=== PATIENT | female | born 1970 | race Caucasian/White ===

== ENCOUNTER 2020-05-09 14:24 | Outpatient (REF) | payer BC, SELFPAY ==
--- NOTE | 2020-05-09 14:28 | MM_ITS ---
EXAMINATION: MM DIAGNOSTIC DIGITAL BREAST TOMOSYNTHESIS, BILATERAL US DIAGNOSTIC ULTRASOUND BREAST, LEFT CLINICAL INFORMATION: 49-year-old status post reduction mammoplasty [id number]. Chronic inflammatory changes in the anterior left breast for months, painful. Family history breast cancer in maternal grandmother and aunt, and, paternal grandmother and aunt. The lifetime risk of breast cancer based on the Tyrer-Cuzick Model is 20%. COMPARISON: Mammography: 06/27/2019, 04/19/2018, 04/14/2017 TECHNIQUE: Digital breast tomosynthesis is performed in both the craniocaudal and mediolateral oblique views along with computer-aided detection (CAD). Synthesized 2D images are generated from the tomosynthesis. Ultrasound left breast is targeted to the area of clinical concern retroareolar and periareolar breast. Grayscale imaging and color Doppler are performed without and with harmonics. FINDINGS: There are scattered areas of fibroglandular density (ACR BI-RADS breast composition Category b). There is bilateral anterior breasts scarring consistent with the reduction mammoplasty again seen. The right breast shows no interval mass or architectural abnormality. Neither breast shows abnormal calcifications. Low right axillary tail node is stable. The left breast has mild smooth skin thickening and mild increased parenchymal attenuation retroareolar breast corresponding to the area of mastodynia. Ultrasound left breast demonstrates smooth skin thickening left areola in the area of pain. There is a retroareolar deep dermal fluid collection measuring 0.8 x 1.3 x 1.3 cm with surrounding hyperemia on color Doppler. No solid mass or focal duct ectasia. Results are discussed with the patient at time of visit. Results are called and discussed with Dr. Briones while patient in office. Management plan is for patient to begin antibiotics this evening with follow-up ultrasound next week with possible ultrasound-guided aspiration as needed. MM/MM diagnostic mammo BI IMPRESSION: 1. Left: Inflammatory changes retroareolar left breast with small deep dermal fluid collection 0.8 x 1.3 x 1.3 cm. 2. No mammographic evidence of malignancy. ASSESSMENT: BI-RADS 3: Probably Benign RECOMMENDATION: 1. Patient should begin antibiotic coverage today. 2. Follow-up targeted left breast ultrasound next week (scheduled). This patient's information was entered into a reminder system with a target due date for their next mammogram.
== END 2020-05-09 14:25 | disposition home or self-care (01) ==
LOC: HO.MAMMO 14:24
PROVIDERS: Visit Provider Nurse Practitioner Family
DX: N63.20 Unspecified lump in the left breast, unspecified quadrant (principal); N64.52 Nipple discharge
CPT/HCPCS: 76641; 77066

== ENCOUNTER 2020-05-16 08:07 | Outpatient (REF) | payer BC, MEDICAID, SELFPAY ==
--- NOTE | 2020-05-16 08:15 | US_ITS ---
EXAMINATION: US DIAGNOSTIC ULTRASOUND BREAST, LEFT US ULTRASOUND-GUIDED CYST ASPIRATION BREAST, LEFT CLINICAL INFORMATION: Inflammatory changes retroareolar left breast with deep dermal fluid collection 8 x 13 x 13 mm. One-week follow-up on antibiotics. COMPARISON: Mammography and diagnostic left breast ultrasound 05/09/2020. US BREAST, LEFT TECHNIQUE: Ultrasound left breast is targeted to the retroareolar and periareolar region. Grayscale imaging and color Doppler are performed. FINDINGS: There are increased inflammatory changes with increased granulation tissue and fluid. The area of involvement is irregular in shape and maximal overall dimensions are approximately 3.6 x 2.4 x 3.8 cm compared with prior measurements 1.3 x 0.8 x 1.3 cm. Clinically, there is circumferential erythema anterior left breast. US ASPIRATION BREAST, LEFT FINDINGS: Proper informed consent is obtained from the patient after discussion of the procedure, potential risks and complications, and alternatives. Patient was given an opportunity for questions. The patient appeared to understand. The patient consented to the procedure and signed the consent form. LOCATION: Retroareolar GUIDANCE: Ultrasound-guided; aseptic technique. LESION: Retroareolar abscess/granulation tissue. APPROACH: Lateral medial ANESTHESIA: 4 mL 1% lidocaine NEEDLE: 18-gauge straight. ASPIRATION: 7 mL purulent material was aspirated and sent to lab for Gram stain, culture, sensitivity. Remaining hypoechoic area which did not aspirate may represent granulation tissue. The overall size post aspiration is approximately 3.2 x 1.9 x 2.8 cm. Results discussed with patient at time of imaging. Results discussed with Dr. Cecile Briones immediately following the procedure. Surgical consult [facility] for [facility] for additional management. US/US breast cyst asp LT IMPRESSION: 1. Subareolar abscess and granulation tissue increased since prior imaging 05/09/2020. 2. Status post ultrasound-guided aspiration purulent material (7 mL). Microbiology pending. ASSESSMENT: BI-RADS 3: Probably Benign RECOMMENDATION: 1. Surgical consult (scheduled). 2. Continue with antibiotics coverage as directed. 3. Microbiology pending from today's aspiration.
== END 2020-05-16 08:08 | disposition home or self-care (01) ==
LOC: HO.MAMMO 08:07
PROVIDERS: PCP Internal Medicine; Visit Provider Internal Medicine
DX: N63.20 Unspecified lump in the left breast, unspecified quadrant (principal); N61.1 Abscess of the breast and nipple
CPT/HCPCS: 19000; 76642; 87071; 87205

== ENCOUNTER 2020-05-19 10:20 | Day surgery (SDC) | payer BC, MEDICAID, SELFPAY ==
[2020-05-19 11:03] VITALS: BP 139/96; PULSE 97; RESP 18; TEMP 36.4; O2SAT 97; BMI 36.6
[2020-05-19] MEDS: Lidocaine 4 % Cream KIT 1 APPL TOPICAL (11:09)
[2020-05-19] MEDS: Lactated Ringers 1,000 ML 100 ML IVCONT (11:42)
[2020-05-19] MEDS: ceFAZolin Sodium/Dextrose,Iso 2 GM/50 ML PIGGYBACK IV (11:42)
--- NOTE | 2020-05-19 11:56 | MHC.SHP ---
Pre-Procedural Eval Section A The patient is an INPATIENT: No Changes since office visit: Yes Patient answered all questions; No Cold of Flu in the past 2 weeks, No New Medical Problems and No Changes in Medication The History & Physical has been completed within 30 days and I have reviewed it.: Yes Section B Chief Complaint: Left Breast Abscess Allergies: Allergies Allergy/AdvReac Type Severity Reaction Status Date / Time lactose [LACTOSE] Allergy Unknown GI UPSET Verified 05/08/20 16:18 latex Allergy Unknown unknown Uncoded 03/13/20 10:53 Plan Diagnosis/Plan: Unchanged I have reviewed the history and physical and performed a pertinent physical examination on my patient. No changes have occurred unless specified.
--- NOTE | 2020-05-19 12:43 | PM.OP ---
Brief Operative Note Date of Service: 05/19/20 Pre-op diagnosis: Left breast abscess Post-op diagnosis: same Procedure: Incision and drainage of left breast abscess Implants: none Surgeon: Richard Oleary MD Anesthesia: [facility] Medical Receptionist: Chhaya Barron Estimated blood loss (mL): 5 Pathology: other (wound culture) Condition: stable Disposition: PACU
--- NOTE | 2020-05-19 12:44 | P.OP_ITS ---
Operative Note Operative Note Date of Service: 05/19/20 Narrative: Diagnosis: Left breast abscess Postoperative diagnosis: Same Procedure incision and drainage left breast abscess Surgeon: Richard Oleary MD Equipment Application Specialist: GARRY Horan Anesthesia: General LMA Indications for procedure: 49-year-old female patient presenting with a 1 week history of pain and swelling of the left breast. Patient reports increased pain over the preceding 2-3 days and subsequently underwent ultrasound-guided aspiration. Following this procedure the patient reported increased pain but denied fever or chills. Ultrasound indicated a residual phlegmon or granulation tissue within the left breast. Of note the patient has a prior history of bilateral breast reduction surgery with no immediate postoperative complications. Operative findings: The patient was found to have a large abscess located below the nipple on the left breast with surrounding areas of inflammation. A culture of the fluid was sent for wound culture. EBL: 5 mL Complications: None Specimen: Wound culture Drain: 1/4 inch Klaudia drain (latex-free) Procedure details: Patient was brought to the OR placed in a supine position. After administering general anesthesia the patient's left breast was prepped with ChloraPrep and draped in a sterile fashion. A surgical time-out was called consent confirmed. Patient received preoperative antibiotics and Venodyne boots were in place. Local anesthesia consisting of 0.75% was placed in the 12 o'clock position of the nipple-areolar complex over her previous nipple incision. An incision was then made with a 15 blade carried out through subcutaneous tissue. Blunt dissection with a hemostat was then used to dissect below the nipple at which point a large abscess was encountered. Wound cultures were obtained at this point. Blunt dissection was used to open up this abscess cavity to the incision. The wounds were then irrigated thoroughly with saline solution and suctioned dry. A 1/4 inch Klaudia drain was then placed into the abscess cavity and brought out through the incision. This was then secured to skin using a 4-0 nylon suture. The patient tolerated the procedure well. Sponge, instrument, needle counts reported as correct. The patient was transferred to PACU in stable condition.
[2020-05-19 12:50] VITALS: BP 119/79; PULSE 96; RESP 14; TEMP 36.6; O2SAT 97
[2020-05-19 12:55] VITALS: BP 123/79; PULSE 91; RESP 20; O2SAT 95
[2020-05-19 13:00] VITALS: BP 132/88; PULSE 92; RESP 18; O2SAT 96
[2020-05-19 13:05] VITALS: BP 119/79; PULSE 90; RESP 18; O2SAT 96
[2020-05-19] MEDS: Acetaminophen 325 MG TABLET 975 MG PO (13:12)
[2020-05-19 13:20] VITALS: BP 105/78; PULSE 85; RESP 18; TEMP 36.6; O2SAT 97
--- NOTE | 2020-05-19 13:39 | HO.POSTANES ---
Post Anesthesia Evaluation Post Anesthesia Evaluation Vital Signs: Vital Signs Temp Pulse Resp BP Pulse Ox 05/19/20 13:20 97.9 F 85 18 105/78 97 05/19/20 13:05 90 18 119/79 96 05/19/20 13:00 92 18 132/88 96 05/19/20 12:55 91 20 123/79 95 05/19/20 12:50 97.9 F 96 14 119/79 97 05/19/20 11:03 97.5 F 97 18 139/96 H 97 Anesthesia: General LMA Mental Status: Awake Pain Control: Satisfactory Nausea/Vomiting: None Hydration: Adequate Anesthesia-Related Issues: No Anes. Related Issues
== END 2020-05-19 13:45 | disposition home or self-care (01) ==
PROVIDERS: PCP Internal Medicine; Visit Provider Surgery
PROC: (CPT 10060; principal; 2020-05-19 12:00)
DX: N61.1 Abscess of the breast and nipple (principal); N64.4 Mastodynia; Z98.890 Other specified postprocedural states; J45.990 Exercise induced bronchospasm; Z91.040 Latex allergy status; F31.9 Bipolar disorder, unspecified; Z85.528 Personal history of other malignant neoplasm of kidney; Z90.5 Acquired absence of kidney; Z98.51 Tubal ligation status; Z79.899 Other long term (current) drug therapy
CPT/HCPCS: 10060; 87071; 87205; J0690; J2250; J3010

== ENCOUNTER → 2020-05-27 11:35 | Outpatient (BNVA) | payer BC, SELFPAY | PROVIDERS: PCP Internal Medicine; Visit Provider Surgery ==

== ENCOUNTER 2020-06-05 07:04 | Outpatient (REF) | payer BC, SELFPAY ==
[2020-06-05 07:43] LABS: MANUAL DIFF FLAG NO
[2020-06-05 07:47] LABS: Basophils Percent Auto 0.3 % (0-2); Eosinophils Absolute Auto 0.2 X10*3/uL (0.0-0.4); Eosinophils Percent Auto 1.9 % (0-4); Hematocrit 38.8 % (37-47); Hemoglobin 12.7 g/dl (12.0-16.0); Imm Gran Abs Auto 0.02 X10*3/uL (0.00-0.03); Imm Gran Pct Auto 0.3 % (0.0-0.4); Lymphocytes Absolute Auto 1.7 X10*3/uL (1.2-4.9); Lymphocytes Percent Auto 21.8 % (20-40); Mean Corpuscular HGB Conc 32.7 g/dl (31.0-35.0); Mean Corpuscular Volume 82.4 fL (80-98); Mean Platelet Volume 9.7 fL (9.4-12.3); Monocytes Absolute Auto 0.4 X10*3/uL (0.1-1.2); Monocytes Percent Auto 5.5 % (2-11); Neutrophils Absolute Auto 5.4 X10*3/uL (2.0-8.3); Neutrophils Percent Auto 70.2 % (45-73); Platelet Count 442 X10*3/uL (160-400); Red Blood Count 4.71 X10*6/uL (4.20-5.50); Red Cell Distribution Width 12.9 % (11.0-16.0); White Blood Count 7.8 X10*3/uL (4.8-10.8)
[2020-06-05 08:16] LABS: Anion Gap 12 (12-20); Blood Urea Nitrogen 11 mg/dL (9-16); Calcium 9.3 mg/dL (8.4-10.2); Carbon Dioxide 27 mmol/L (22-29); Chloride 104 mmol/L (96-108); Cholesterol 213 mg/dL; Estimated Glomerular Filt Rate > 60; Glucose Fasting 106 mg/dL (60-99); HDL Cholesterol 45 mg/dL; LDL Cholesterol Calculated 139 mg/dl; Potassium 4.9 mmol/L (3.3-5.1); Sodium 138 mmol/L (135-145); Triglycerides 145 mg/dL
[2020-06-05 08:35] LABS: TSH reflex Free T4 1.75 uIU/mL (0.32-4.0)
[2020-06-09 15:02] LABS: Vitamin D 25-OH, D2 <4 ng/mL; Vitamin D 25-OH, D3 24 ng/mL; Vitamin D 25-OH, Total 24 ng/mL (30-100)
== END 2020-06-05 07:05 | disposition home or self-care (01) ==
LOC: HO.LAB 07:04
PROVIDERS: Visit Provider Internal Medicine
DX: R10.13 Epigastric pain (principal); E78.9 Disorder of lipoprotein metabolism, unspecified; F31.9 Bipolar disorder, unspecified; Z82.49 Family history of ischemic heart disease and other diseases of the circulatory system
CPT/HCPCS: 36415; 80048; 80061; 82306; 84443; 85025

== ENCOUNTER → 2020-06-06 09:24 | Outpatient (BNVA) | payer BC, SELFPAY | PROVIDERS: PCP Internal Medicine; Visit Provider Obstetrics & Gynecology ==

== ENCOUNTER → 2020-06-10 09:00 | Outpatient (BNVA) | payer BC, SELFPAY | PROVIDERS: PCP Internal Medicine; Visit Provider Surgery ==

== ENCOUNTER → 2020-07-08 15:16 | Outpatient (BNVA) | payer BC, SELFPAY | PROVIDERS: PCP Internal Medicine; Visit Provider Surgery ==

== ENCOUNTER 2020-07-30 10:09 | Outpatient (REF) | payer BC, SELFPAY ==
[2020-07-30 11:38] LABS: SARS COV2 PCR INHOUSE NEGATIVE (Negative)
== END 2020-07-30 10:10 | disposition home or self-care (01) ==
LOC: HO.LAB 10:09
PROVIDERS: Visit Provider Internal Medicine
DX: Z20.822 Contact with and (suspected) exposure to COVID-19 (principal)
CPT/HCPCS: C9803; U0003

== ENCOUNTER 2021-04-03 08:17 | Outpatient (REF) | payer BC, MEDICAID, SELFPAY ==
[2021-04-03 12:03] LABS: Estimated Average Glucose 114 mg/dL; Hemoglobin A1c % 5.6 %
[2021-04-03 12:26] LABS: Alanine Aminotransferase 29 U/L (0-31); Albumin Level 4.1 g/dL (3.5-5.0); Alkaline Phosphatase 76 U/L (39-117); Anion Gap 13 (12-20); Aspartate Amino Transferase 18 U/L (5-31); Bilirubin Total 0.4 mg/dL (0.0-1.0); Blood Urea Nitrogen 10 mg/dL (9-16); Calcium 9.6 mg/dL (8.4-10.2); Carbon Dioxide 26 mmol/L (22-29); Chloride 107 mmol/L (96-108); Estimated Glomerular Filt Rate > 60; Glucose Random 109 mg/dL (60-115); Potassium 4.5 mmol/L (3.3-5.1); Sodium 141 mmol/L (135-145); Total Protein 6.9 g/dL (6.5-8.0)
== END 2021-04-03 08:18 | disposition home or self-care (01) ==
LOC: HO.HMGCLDS 08:17
PROVIDERS: PCP Internal Medicine; Visit Provider Internal Medicine
DX: R73.03 Prediabetes (principal); I10 Essential (primary) hypertension
CPT/HCPCS: 36415; 80053; 83036

== ENCOUNTER → 2021-06-09 08:25 | Outpatient (BNVA) | payer BC, MEDICAID, SELFPAY | PROVIDERS: PCP Internal Medicine; Visit Provider Obstetrics & Gynecology ==

== ENCOUNTER 2021-06-09 14:40 | Outpatient (REF) | payer BC, MEDICAID, SELFPAY ==
--- NOTE | ~2021-06-09 | XR_ITS ---
EXAMINATION: XR SHOULDER, LEFT CLINICAL INFORMATION: Pain in the shoulder COMPARISON: None TECHNIQUE: Three views of the left shoulder. FINDINGS: The bones and soft tissues are normal. No fracture. Glenohumeral and acromioclavicular alignment is anatomic with normal joint space. No abnormal soft tissue calcifications. XR/XR shoulder LT min 2V IMPRESSION: Normal left shoulder.
== END 2021-06-09 14:41 | disposition home or self-care (01) ==
LOC: HO.HMGCX 14:40
PROVIDERS: PCP Internal Medicine; Visit Provider Physician Assistant
DX: M25.512 Pain in left shoulder (principal)
CPT/HCPCS: 73030

== ENCOUNTER 2021-06-24 14:22 | Outpatient (REF) | payer BC, MEDICAID, SELFPAY ==
--- NOTE | ~2021-06-24 | XR_ITS ---
EXAMINATION: XR ELBOW, LEFT CLINICAL INFORMATION: Elbow pain. COMPARISON: None TECHNIQUE: AP, lateral, and oblique views of the left elbow. FINDINGS: Bony mineralization is normal. There is no fracture, dislocation, or elbow capsular effusion. There is spurring from the medial and lateral epicondyles and mineralization in the region of the proximal common extensor tendon. Borderline spur olecranon. No erosive change. XR/XR elbow LT min 3V IMPRESSION: Spurring medial and lateral epicondyles and mineralization in region of proximal common extensor tendon.
== END 2021-06-24 14:23 | disposition home or self-care (01) ==
LOC: HO.HOSX 14:22
PROVIDERS: PCP Internal Medicine; Visit Provider Physician Assistant
DX: M75.102 Unspecified rotator cuff tear or rupture of left shoulder, not specified as traumatic (principal); M25.522 Pain in left elbow; M25.512 Pain in left shoulder; J45.990 Exercise induced bronchospasm; Z87.891 Personal history of nicotine dependence; Z91.040 Latex allergy status; Z91.011 Allergy to milk products
CPT/HCPCS: 73080; J1040

== ENCOUNTER → 2021-07-08 10:06 | Outpatient (BNVA) | payer BC, MEDICAID, SELFPAY | PROVIDERS: Visit Provider Obstetrics & Gynecology ==

== ENCOUNTER → 2021-07-21 09:12 | Outpatient (BNVA) | payer BC, MEDICAID, SELFPAY | PROVIDERS: PCP Internal Medicine; Visit Provider Obstetrics & Gynecology | DX: N84.1 Polyp of cervix uteri (principal) | CPT/HCPCS: 99212 ==

== ENCOUNTER 2021-07-31 08:45 | Day surgery (SDC) | payer BC, MEDICAID, SELFPAY ==
--- NOTE | 2021-07-29 13:30 | HO.ANESPROP2 ---
Documented by User: Kaleigh Gee NP 07/29/21 13:31 HPI - Anesthesia Eval Consult details Narrative: 50yo F for D&C Hysteroscopy,poss polypectomy,poss myomectomy PMFSH Active Problems Active Problems: All Active Problems (Updated 07/21/21 @ 09:52 by Mark Laura MD) Cervical polyp (Acute) At high risk for breast cancer (Acute) Painful arc syndrome of left shoulder (Acute) Upper respiratory tract infection (Acute) Obesity due to excess calories (Acute) Prediabetes (Acute) Well woman exam (Acute) Encounter for general adult medical examination with abnormal findings (Acute) Routine gynecological examination (Acute) Hypertension, essential (Acute) Left breast abscess (Acute) Nipple discharge (Acute) Breast mass, left (Acute) Asthma, exercise induced (Acute) Dyspepsia (Acute) Lipid disorder (Acute) Bipolar 1 disorder (Acute) Family history of coronary artery disease (Acute) Sinusitis chronic, frontal (Acute) Mastoiditis of left side (Acute) Past Medical History Medical History Asthma, exercise induced Bipolar 1 disorder Dyspepsia Family history of coronary artery disease History of kidney cancer History of renal cell carcinoma Lipid disorder Family History Family History Father HTN (hypertension) High cholesterol Mother High cholesterol CVD (cardiovascular disease) Maternal Grandfather HTN (hypertension) Myocardial infarction CVD (cardiovascular disease) Maternal Grandmother CVD (cardiovascular disease) HTN (hypertension) Myocardial infarction Paternal Grandfather Diabetes mellitus Throat cancer Paternal Grandmother Breast cancer Bone cancer Brother No problems noted. Sister Bone cancer HTN (hypertension) Daughter No problems noted. Daughter No problems noted. Other Mental health disorder Substance use disorder Surgical History Surgical History H/O right nephrectomy History of bunionectomy History of section History of endometrial ablation History of tubal ligation Hx of elbow surgery Status post breast reduction Social History Social History Housing: House Patient Tobacco Use Status: Former Tobacco user Quit Date: 2015 Tobacco use type: Cigarette Use of substances other than those prescribed or required for medical reasons: No Are you DNR?: No Advance Directives: No Advance Directives Information Provided: Yes Current occupational status: employed Current occupation: [employer] Meds Allergies Allergy/AdvReac Type Severity Reaction Status Date / Time lactose [LACTOSE] Allergy Unknown GI UPSET Verified 07/08/21 10:20 latex Allergy Unknown unknown Uncoded 06/24/21 14:25 Home Medications Medication Instructions Recorded Confirmed Last Taken Type clonazepam 1 mg tablet 0.5 mg PO BID tab 03/13/20 04/03/21 Unknown History oxcarbazepine 300 mg tablet 300 mg PO BID 03/13/20 04/03/21 Unknown History guanfacine 2 mg tablet mg PO 06/09/21 Unknown History lamotrigine 150 mg tablet mg PO 06/24/21 Unknown History Exam Exam Date and Time: July 29, 2021 1330 Pertinent Lab Results Pertinent Lab Results: Laboratory Tests 04/03/21 08:22 Sodium 141 Potassium 4.5 Chloride 107 Carbon Dioxide 26 BUN 10 Creatinine 0.74 Assessment and Plan Assessment Anesthesia Assessment: Chart Reviewed Documented by User: Gurvinder Meeks MD 07/31/21 09:52 FOR[facility]LY [facility], [facility] Past Medical History Medical History Asthma, exercise induced Bipolar 1 disorder Dyspepsia Family history of coronary artery disease History of kidney cancer History of renal cell carcinoma Lipid disorder Family History Family History Father HTN (hypertension) High cholesterol Mother High cholesterol CVD (cardiovascular disease) Maternal Grandfather HTN (hypertension) Myocardial infarction CVD (cardiovascular disease) Maternal Grandmother CVD (cardiovascular disease) HTN (hypertension) Myocardial infarction Paternal Grandfather Diabetes mellitus Throat cancer Paternal Grandmother Breast cancer Bone cancer Brother No problems noted. Sister Bone cancer HTN (hypertension) Daughter No problems noted. Daughter No problems noted. Other Mental health disorder Substance use disorder Family history of problems with anesthesia: No Surgical History Surgical History H/O right nephrectomy History of bunionectomy History of section History of endometrial ablation History of tubal ligation Hx of elbow surgery Status post breast reduction History of Problems with Anesthesia: No Social History Social History Housing: House Patient Tobacco Use Status: Former Tobacco user Quit Date: 2015 Tobacco use type: Cigarette Use of substances other than those prescribed or required for medical reasons: No Are you DNR?: No Advance Directives: No Advance Directives Information Provided: Yes Current occupational status: employed Current occupation: [employer] Meds Allergies Allergy/AdvReac Type Severity Reaction Status Date / Time lactose [LACTOSE] Allergy Unknown GI UPSET Verified 07/08/21 10:20 latex Allergy Unknown unknown Uncoded 06/24/21 14:25 Home Medications Medication Instructions Recorded Confirmed Last Taken Type clonazepam 1 mg tablet 0.5 mg PO BID tab 03/13/20 04/03/21 Unknown History oxcarbazepine 300 mg tablet 300 mg PO BID 03/13/20 04/03/21 Unknown History guanfacine 2 mg tablet mg PO 06/09/21 Unknown History lamotrigine 150 mg tablet mg PO 06/24/21 Unknown History Exam Airway Mallampati Class: II TM Dist: >3cm Neck ROM: Full Assessment and Plan Assessment Anesthesia Assessment: Anesthesia Plan Discussed Final Anesthetic Review Family History of Problems with Anesthesia: No History of Problems with Anesthesia: No NPO: Yes ASA Class: II and III Final Preanesthetic Review: No Changes in Pt Med Stat, Meds/Allgs Chart Reviewed, Consent Obtained/Reviewed and Anes Risks/Benef Reviewed Patient Risk: Low Procedure Risk: Low Anesthetic Plan Anesthetic Plan: GA Disposition: Standard PACU
[2021-07-31] VITALS (10 sets, daily range): BP systolic 101–132; BP diastolic 68–96; PULSE 72–88; RESP 16–18; TEMP 36.2–36.8; O2SAT 96–98; BMI 36.0
[2021-07-31 09:17] LABS: UPreg QC Valid YES; Urine Pregnancy NEGATIVE (NEGATIVE)
--- NOTE | 2021-07-31 09:37 | MHC.SHP ---
Pre-Procedural Eval Section A Date of Service: 07/31/21 The patient is an INPATIENT: No Changes since office visit: No Cold of Flu in the past 2 weeks, No New Medical Problems, No Changes in Medication and No Patient answered all questions The History & Physical has been completed within 30 days and I have reviewed it.: Yes Section B Chief Complaint: Polyp of cervix uteri Allergies: Allergies Allergy/AdvReac Type Severity Reaction Status Date / Time lactose [LACTOSE] Allergy Unknown GI UPSET Verified 07/08/21 10:20 latex Allergy Unknown unknown Uncoded 06/24/21 14:25 Plan Diagnosis/Plan: Unchanged I have reviewed the history and physical and performed a pertinent physical examination on my patient. No changes have occurred unless specified.
[2021-07-31] MEDS: Lactated Ringers 1,000 ML 100 ML IVCONT (09:44)
[2021-07-31] MEDS: Scopolamine 1.5 MG PATCH.TD.3 EAR-BEHIND (09:54)
--- NOTE | 2021-07-31 10:28 | PM.OP ---
Brief Operative Note Date of Service: 07/31/21 Pre-op diagnosis: Endocervical polyp Post-op diagnosis: same (Normal endometrial cavity) Procedure: Hysteroscopy D&C, endocervical Polypectomy Surgeon: Mark Laura MD Anesthesia: MAC Was an Patient Relations Director used for this Procedure?: No Estimated blood loss (mL): 0 Pathology: other (Endometrial Scrapping. Polyp) Condition: stable Disposition: PACU
--- NOTE | 2021-07-31 10:29 | P.OP_ITS ---
Operative Note Operative Note Date of Service: 07/31/21 Narrative: Preop Diagnosis: Endocervical polyp Operation: Diagnostic Hysteroscopy, Dilataion & Curettage and endocervical polypectomy Post Op Diagnosis: Endocervical l Polyp QBL: Minimal Anesthesia: MAC Surgeon: Mark Laura MD State Archivist: None Complication: None Pathology: Endometrial Scrapings, Endometrial polyp Complication: None Pathology: Endometrial Scrapings, Endometrial polyp Procedure: The patient was put in the dorsal lithotomy position, scrubbed, and draped in the usual manner. A sterile speculum was inserted in the patient's vagina. A 2 cm endocervical polyp was identified protruding out of endocervix. And a ring forceps the endocervical polyp was pulled out and cautery was used to excise the endocervical polyp from its base . Then the anterior lip of the cervix was grasped with a single tooth tenaculum. The cervix was dilated up to 5 mm, then the scope was inserted in the patient's uterus. Inspection revealed normal endometrial cavity, this was followed by sharp curettings and minimal to moderate amount tissues were retrieved. At the end of the procedure, all instruments were taken out of the patient uterine and vaginal cavity. The single tooth tenaculum was removed and homeostasis was assured using pressure,. The patient tolerated the procedure well and was transferred to the PACU in a stable condition.
[2021-07-31] MEDS: oxyCODONE HCl Immed Release 5 MG TABLET 10 MG PO (10:50)
[2021-07-31] MEDS: fentaNYL citrate/PF 100 MCG/2 ML VIAL 50 MCG IVPUSH (10:51)
== END 2021-07-31 12:37 | disposition home or self-care (01) ==
PROVIDERS: PCP Internal Medicine; Visit Provider Obstetrics & Gynecology
PROC: 0UDB8ZZ Extraction of Endometrium, Via Natural or Artificial Opening Endoscopic (ICD-10-PCS; CPT 58558; principal; 2021-07-31 10:30)
DX: N84.1 Polyp of cervix uteri (principal); J45.990 Exercise induced bronchospasm
CPT/HCPCS: 58558; 81025; 88305; J1100; J2250; J2405; J3010

== ENCOUNTER → 2021-08-13 12:53 | Outpatient (BNVA) | payer BC, MEDICAID, SELFPAY | PROVIDERS: Visit Provider Obstetrics & Gynecology | DX: Z13.89 Encounter for screening for other disorder (principal) ==

== ENCOUNTER → 2021-08-18 09:17 | Outpatient (BNVA) | payer BC, MEDICAID, SELFPAY | PROVIDERS: PCP Obstetrics & Gynecology; Referring Provider Obstetrics & Gynecology; Visit Provider Surgery | DX: Z13.89 Encounter for screening for other disorder (principal) ==

== ENCOUNTER 2021-09-09 13:24 | Outpatient (REF) | payer BC, MEDICAID, SELFPAY ==
[2021-09-09 14:26] LABS: Blood Urea Nitrogen 9 mg/dL (9-16); Estimated Glomerular Filt Rate > 60
== END 2021-09-09 13:25 | disposition home or self-care (01) ==
LOC: HO.LAB 13:24
PROVIDERS: PCP Internal Medicine; Visit Provider Surgery
DX: N64.4 Mastodynia (principal)
CPT/HCPCS: 36415; 82565; 84520

== ENCOUNTER 2021-09-10 14:48 | Outpatient (REF) | payer BC, MEDICAID, SELFPAY ==
--- NOTE | ~2021-09-10 | MR_ITS ---
EXAMINATION: MR BREAST WITHOUT AND WITH CONTRAST, BILATERAL CLINICAL INFORMATION: Left nipple discharge. Personal history of renal carcinoma (2016) COMPARISON: Bilateral mammogram 05/09/2020 TECHNIQUE: Imaging was performed with a dedicated breast coil. Prior to the administration of contrast, bilateral axial T1 and bilateral axial T2 weighted sequences were obtained. After the uneventful administration of?10 mL of Gadavist, dynamic contrast-enhanced VIBRANT series through the breasts in the axial plane were performed. Subtracted images were performed and reviewed. A delayed sagittal sequence through both breasts was acquired. Additionally, CAD post-processing, including maximum intensity projections, 3-D reconstructions and kinetic analysis, were performed an independent workstation and reviewed by the interpreting radiologist is a portion of this exam. FINDINGS: The patient's fibroglandular tissue demonstrates minimal background enhancement. LEFT BREAST: No suspicious masslike or non-masslike enhancement. No abnormal skin thickening or nipple retraction. No abnormal architectural distortion. Review of the T2 weighted images demonstrates no fibrocystic changes or dilated ducts. Review of kinetic images reveals no additional findings. RIGHT BREAST: No suspicious masslike or non-masslike enhancement. No abnormal skin thickening or nipple retraction. No abnormal architectural distortion. Review of the T2 weighted images demonstrates no fibrocystic changes or dilated ducts. Review of kinetic images reveals no additional findings. There is no suspicious internal mammary chain or axillary adenopathy. Limited views of the chest and abdomen are unremarkable. MR/MR breast BI wo/w con IMPRESSION: No MR specific evidence of malignancy. ASSESSMENT: LEFT BREAST: BI-RADS 1-Negative RIGHT BREAST: BI-RADS 1-Negative RECOMMENDATIONS: Recommend yearly mammogram at this time, most recent prior mammogram is May 2020. Repeat MRI as clinically indicated.
== END 2021-09-10 14:49 | disposition home or self-care (01) ==
LOC: HO.MRI 14:48
PROVIDERS: Visit Provider Surgery
DX: N64.4 Mastodynia (principal); N64.52 Nipple discharge; N64.53 Retraction of nipple; Z85.528 Personal history of other malignant neoplasm of kidney; Z80.3 Family history of malignant neoplasm of breast; Z91.89 Other specified personal risk factors, not elsewhere classified
CPT/HCPCS: 77049; A9585

== ENCOUNTER 2021-10-21 08:27 | Outpatient (REF) | payer BC, MEDICAID, SELFPAY ==
--- NOTE | ~2021-10-21 | MM_ITS ---
EXAMINATION: MM SCREENING DIGITAL BREAST TOMOSYNTHESIS, BILATERAL CLINICAL INFORMATION: Screening. Asymptomatic. History reduction mammoplasty, January 2018. The lifetime risk of breast cancer based on the Tyrer-Cuzick Model is 16%. COMPARISON: Mammography: 05/09/2020, 06/27/2019, 04/19/2018, 04/14/2017; bilateral breast MRI 09/10/2021. TECHNIQUE: Digital breast tomosynthesis is performed in both the craniocaudal and mediolateral oblique views along with computer-aided detection (CAD). Synthesized 2D images are generated from the tomosynthesis. FINDINGS: There are scattered areas of fibroglandular density (ACR BI-RADS breast composition Category b). Parenchymal and stromal pattern is similar to prior studies. No developing density or architectural abnormality. No abnormal calcifications. There is an intramammary node again seen posterior upper outer right breast and minor scarring consistent with the reduction mammoplasty. No significant changes. MM/MM tomosynthesis screening BI IMPRESSION: No mammographic evidence of malignancy. ASSESSMENT: BI-RADS 2: Benign RECOMMENDATION: Routine annual mammography screening. This patient's information was entered into a reminder system with a target due date for their next mammogram.
== END 2021-10-21 08:28 | disposition home or self-care (01) ==
LOC: HO.MAMMO 08:27
PROVIDERS: PCP Internal Medicine; Visit Provider Internal Medicine
DX: Z12.31 Encounter for screening mammogram for malignant neoplasm of breast (principal)
CPT/HCPCS: 77063; 77067

== ENCOUNTER 2021-10-28 14:43 | Outpatient (REF) | payer BC, MEDICAID, SELFPAY ==
[2021-10-30 02:21] LABS: Rubella IgG Antibody 4.38 Index
[2021-11-04 18:17] LABS: TS Negative Control Passed; TS Panel A 0; TS Panel B 0; TS Positive Control Passed; TSpotTB Negative (Negative)
== END 2021-10-28 14:44 | disposition home or self-care (01) ==
LOC: HO.LAB 14:43
PROVIDERS: PCP Internal Medicine; Visit Provider Physician Assistant
DX: Z02.1 Encounter for pre-employment examination (principal); Z11.1 Encounter for screening for respiratory tuberculosis
CPT/HCPCS: 36415; 86481; 86735; 86762; 86765; 86787

== ENCOUNTER 2022-01-12 10:27 | Outpatient (REF) | payer BC, MEDICAID, SELFPAY ==
[2022-01-12 10:53] LABS: MANUAL DIFF FLAG NO
[2022-01-12 12:08] LABS: Basophils Percent Auto 0.6 % (0-2); Eosinophils Absolute Auto 0.1 X10*3/uL (0.0-0.4); Eosinophils Percent Auto 1.1 % (0-4); Hematocrit 41.3 % (37.0-47.0); Hemoglobin 13.8 g/dl (12.0-16.0); Imm Gran Abs Auto 0.01 X10*3/uL (0.00-0.03); Imm Gran Pct Auto 0.2 % (0.0-0.4); Lymphocytes Absolute Auto 1.9 X10*3/uL (1.2-4.9); Lymphocytes Percent Auto 29.5 % (20-40); Mean Corpuscular HGB Conc 33.4 g/dl (31.0-35.0); Mean Corpuscular Volume 80.7 fL (80.0-98.0); Mean Platelet Volume 10.2 fL (9.4-12.3); Monocytes Absolute Auto 0.4 X10*3/uL (0.1-1.2); Monocytes Percent Auto 5.9 % (2-11); Neutrophils Absolute Auto 4.1 x10*3/uL (2.0-8.3); Neutrophils Percent Auto 62.7 % (45-73); Platelet Count 399 X10*3/uL (160-400); Red Blood Count 5.12 X10*6/uL (4.20-5.50); Red Cell Distribution Width 13.5 % (11.0-16.0); White Blood Count 6.5 X10*3/uL (4.8-10.8)
[2022-01-12 12:39] LABS: Alanine Aminotransferase 38 U/L (0-31); Albumin Level 4.4 g/dL (3.5-5.0); Alkaline Phosphatase 89 U/L (39-117); Anion Gap 15 (12-20); Aspartate Amino Transferase 23 U/L (5-31); Bilirubin Total 0.6 mg/dL (0.0-1.0); Blood Urea Nitrogen 11 mg/dL (9-16); C Reactive Protein 1.31 mg/dL (< or = 0.50); Calcium 9.9 mg/dL (8.4-10.2); Carbon Dioxide 27 mmol/L (22-29); Chloride 105 mmol/L (96-108); Cholesterol 239 mg/dL; Estimated Glomerular Filt Rate > 60; Glucose Fasting 94 mg/dL (60-99); HDL Cholesterol 50 mg/dL; LDL Cholesterol Calculated 164 mg/dl; Potassium 5.2 mmol/L (3.3-5.1); Sodium 142 mmol/L (135-145); Total Protein 7.4 g/dL (6.5-8.0); Triglycerides 127 mg/dL
[2022-01-12 12:42] LABS: Amphetamine Screen Urine Not Detected (Not Detect); Barbiturates, Urine Not Detected (Not Detect); Benzodiazepines Screen Urine Not Detected (Not Detect); Cannabinoid Screen Urine Not Detected (Not Detect); Cocaine Screen Urine Not Detected (Not Detect); Fentanyl, urine Not Detected (Not Detect); Opiate Screen Urine Not Detected (Not Detect); Phencyclidine Screen Urine Not Detected (Not Detect)
[2022-01-12 12:57] LABS: TSH reflex Free T4 1.79 uIU/mL (0.32-4.0)
[2022-01-19 13:21] LABS: Transglutaminase Ab IgG <1.0 U/mL; Transglutaminase IgA <1.0 U/mL
== END 2022-01-12 10:28 | disposition home or self-care (01) ==
LOC: HO.LAB 10:27
PROVIDERS: Physician Assistant; PCP Internal Medicine; Visit Provider Nurse Practitioner
DX: R19.7 Diarrhea, unspecified (principal); R93.5 Abnormal findings on diagnostic imaging of other abdominal regions, including retroperitoneum; E66.09 Other obesity due to excess calories; E78.9 Disorder of lipoprotein metabolism, unspecified; I10 Essential (primary) hypertension; J45.990 Exercise induced bronchospasm
CPT/HCPCS: 36415; 80053; 80061; 80307; 81479; 82397; 83520; 84443; 85025; 86140; 86364; 88346; 88350

== ENCOUNTER 2022-01-14 15:02 | Outpatient (REF) | payer BC, MEDICAID, SELFPAY ==
[2022-01-15 14:21] LABS: Adenovirus F 40/41 Not Detected (Not Detect.); Astrovirus Not Detected (Not Detect.); Campylobacter Not Detected (Not Detect.); Cryptosporidium Not Detected (Not Detect.); Cyclospora cayetanensis Not Detected (Not Detect.); E. coli EAEC Not Detected (Not Detect.); E. coli EPEC Not Detected (Not Detect.); E. coli ETEC Not Detected (Not Detect.); E. coli STEC Not Detected (Not Detect.); Entamoeba histolytica Not Detected (Not Detect.); Giardia lamblia Not Detected (Not Detect.); Norovirus GI/GII Not Detected (Not Detect.); Plesiomonas shigelloides Not Detected (Not Detect.); Rotavirus A Not Detected (Not Detect.); Salmonella Not Detected (Not Detect.); Sapovirus Not Detected (Not Detect.); Shigella sp./EIEC Not Detected (Not Detect.); Vibrio Not Detected (Not Detect.); Vibrio Cholerae Not Detected (Not Detect.); Yersinia enterocolitica Not Detected (Not Detect.)
[2022-01-19 00:11] LABS: Calprotectin, Fecal 1200 mcg/g
== END 2022-01-14 15:03 | disposition home or self-care (01) ==
LOC: HO.LNP 15:02
PROVIDERS: Visit Provider Nurse Practitioner
DX: R19.7 Diarrhea, unspecified (principal); R93.5 Abnormal findings on diagnostic imaging of other abdominal regions, including retroperitoneum
CPT/HCPCS: 83993; 87507

== ENCOUNTER 2022-05-14 08:11 | Outpatient (REF) | payer BC, MEDICAID, SELFPAY ==
[2022-05-14 11:15] LABS: Erythrocyte Sedimentation Rate 13 MM/HR (0-20)
[2022-05-14 11:29] LABS: C Reactive Protein 0.84 mg/dL (< or = 0.50); Rheumatoid Factor < 13.0 IU/mL (<15.0)
[2022-05-16 12:58] LABS: Anti Nuclear Antibody Screen NEGATIVE (NEGATIVE)
== END 2022-05-14 08:12 | disposition home or self-care (01) ==
LOC: HO.LAB 08:11
PROVIDERS: PCP Internal Medicine; Referring Provider Internal Medicine; Visit Provider Nurse Practitioner
DX: K50.10 Crohn's disease of large intestine without complications (principal); R93.5 Abnormal findings on diagnostic imaging of other abdominal regions, including retroperitoneum; Z83.79 Family history of other diseases of the digestive system
CPT/HCPCS: 36415; 85652; 86038; 86039; 86140; 86431

== ENCOUNTER 2022-06-04 08:14 | Outpatient (REF) | payer BC, MEDICAID, SELFPAY | END 2022-06-04 08:15 | disposition home or self-care (01) | LOC: HO.LAB 08:14 | PROVIDERS: PCP Internal Medicine; Visit Provider Nurse Practitioner | DX: K50.10 Crohn's disease of large intestine without complications (principal); R19.7 Diarrhea, unspecified | CPT/HCPCS: 36415; 81335 ==

== ENCOUNTER 2022-06-11 10:23 | Outpatient (REF) | payer BC, MEDICAID, SELFPAY ==
[2022-06-11 10:39] LABS: MANUAL DIFF FLAG NO
[2022-06-11 11:50] LABS: Basophils Percent Auto 0.4 % (0-2); Eosinophils Absolute Auto 0.2 X10*3/uL (0.0-0.4); Eosinophils Percent Auto 2.2 % (0-4); Hematocrit 41.5 % (37.0-47.0); Hemoglobin 13.6 g/dl (12.0-16.0); Imm Gran Abs Auto 0.02 X10*3/uL (0.00-0.03); Imm Gran Pct Auto 0.3 % (0.0-0.4); Lymphocytes Absolute Auto 2.2 X10*3/uL (1.2-4.9); Mean Corpuscular HGB Conc 32.8 g/dl (31.0-35.0); Mean Corpuscular Volume 82.5 fL (80.0-98.0); Mean Platelet Volume 10.1 fL (9.4-12.3); Monocytes Absolute Auto 0.5 X10*3/uL (0.1-1.2); Monocytes Percent Auto 6.4 % (2-11); Neutrophils Absolute Auto 4.4 x10*3/uL (2.0-8.3); Neutrophils Percent Auto 60.7 % (45-73); Platelet Count 383 X10*3/uL (160-400); Red Blood Count 5.03 X10*6/uL (4.20-5.50); White Blood Count 7.2 X10*3/uL (4.8-10.8)
[2022-06-11 12:13] LABS: Alanine Aminotransferase 27 U/L (0-31); Albumin Level 4.1 g/dL (3.5-5.0); Alkaline Phosphatase 79 U/L (39-117); Anion Gap 12 (12-20); Aspartate Amino Transferase 18 U/L (5-31); Bilirubin Total 0.7 mg/dL (0.0-1.0); Blood Urea Nitrogen 14 mg/dL (9-16); Calcium 9.4 mg/dL (8.4-10.2); Carbon Dioxide 26 mmol/L (22-29); Chloride 108 mmol/L (96-108); Cholesterol 201 mg/dL; Estimated Glomerular Filt Rate > 60; Glucose Fasting 87 mg/dL (60-99); HDL Cholesterol 41 mg/dL; LDL Cholesterol Calculated 133 mg/dl; Sodium 141 mmol/L (135-145); Total Protein 6.7 g/dL (6.5-8.0); Triglycerides 139 mg/dL
[2022-06-11 12:19] LABS: Estimated Average Glucose 111 mg/dL; Hemoglobin A1c % 5.5 %
== END 2022-06-11 10:24 | disposition home or self-care (01) ==
LOC: HO.LAB 10:23
PROVIDERS: PCP Internal Medicine; Visit Provider Internal Medicine
DX: Z00.01 Encounter for general adult medical examination with abnormal findings (principal); R73.03 Prediabetes; E78.9 Disorder of lipoprotein metabolism, unspecified; I10 Essential (primary) hypertension; J45.909 Unspecified asthma, uncomplicated; K50.10 Crohn's disease of large intestine without complications
CPT/HCPCS: 36415; 80053; 80061; 83036; 85025

== ENCOUNTER → 2022-07-13 10:35 | Outpatient (BNVA) | payer BC, MEDICAID, SELFPAY | PROVIDERS: PCP Internal Medicine; Referring Provider Internal Medicine; Visit Provider Nurse Practitioner | DX: Z13.89 Encounter for screening for other disorder (principal) ==

== ENCOUNTER 2022-07-19 08:18 | Outpatient (REF) | payer BC, MEDICAID, SELFPAY ==
[2022-07-24 06:04] LABS: HPV mRNA E6/E7 rflx Not Detected (Not Detected)
== END 2022-07-19 08:19 | disposition home or self-care (01) ==
LOC: HO.LNP 08:18
PROVIDERS: PCP Internal Medicine; Visit Provider Obstetrics & Gynecology
DX: Z01.419 Encounter for gynecological examination (general) (routine) without abnormal findings (principal); Z11.51 Encounter for screening for human papillomavirus (HPV)
CPT/HCPCS: 87624; 88142

== ENCOUNTER 2022-07-20 16:43 | Outpatient (REF) | payer BC, MEDICAID, SELFPAY ==
[2022-07-20 17:34] LABS: Influenza A PCR NEGATIVE (Negative); Influenza B PCR NEGATIVE (Negative); Resp Syncy Virus RNA Qual PCR NEGATIVE (Negative); SARS COV2 PCR INHOUSE NEGATIVE (Negative)
== END 2022-07-20 16:44 | disposition home or self-care (01) ==
LOC: HO.LNP 16:43
PROVIDERS: Visit Provider Internal Medicine
DX: Z20.822 Contact with and (suspected) exposure to COVID-19 (principal); R09.89 Other specified symptoms and signs involving the circulatory and respiratory systems
CPT/HCPCS: 0241U

== ENCOUNTER → 2022-08-04 08:44 | Outpatient (BNVA) | payer BC, MEDICAID, SELFPAY | PROVIDERS: PCP Internal Medicine; Visit Provider Nurse Practitioner | DX: Z13.89 Encounter for screening for other disorder (principal) ==

== ENCOUNTER → 2022-08-18 16:14 | Outpatient (BNVA) | payer BC, MEDICAID, SELFPAY | PROVIDERS: PCP Internal Medicine; Visit Provider Psychiatry & Neurology Psychiatry | DX: Z13.89 Encounter for screening for other disorder (principal) ==

== ENCOUNTER 2022-08-25 07:48 | Outpatient (REF) | payer BC, MEDICAID, SELFPAY ==
--- NOTE | ~2022-08-25 | US_ITS ---
EXAMINATION: US ABDOMEN LIMITED CLINICAL INFORMATION: Issues with fatty foods. COMPARISON: Ultrasound abdomen complete 08/22/2017 and 11/25/2015. CT abdomen and pelvis 12/11/2015. TECHNIQUE: Real-time imaging of the right upper quadrant abdominal viscera. FINDINGS: PANCREAS: Normal. LIVER: The liver is slightly enlarged.. Liver echotexture is increased representing fatty infiltration. There is a hypoechoic area adjacent to the gallbladder, characteristic location of focal fatty sparing. No other focal lesion. There is no intrahepatic biliary duct dilatation seen. GALLBLADDER: Gallbladder is normal in size. There is adenomyomatosis of the gallbladder wall. No definite gallstones. Gallbladder wall is normal in thickness. COMMON BILE DUCT: Normal in caliber measuring 0.4 cm in diameter. RIGHT KIDNEY: Small cortical calcification in the lower pole measuring 3 x 3 x 5 mm. No hydronephrosis. The kidney measures 13.1 cm in maximum dimension. FREE FLUID: None. US/US abdomen limited IMPRESSION: Slightly enlarged fatty liver. Adenomyomatosis of the gallbladder wall. No gallstones. Small calcification in the cortex of the lower pole right kidney.
== END 2022-08-25 07:49 | disposition home or self-care (01) ==
LOC: HO.US 07:48
PROVIDERS: PCP Internal Medicine; Visit Provider Nurse Practitioner
DX: K50.10 Crohn's disease of large intestine without complications (principal)
CPT/HCPCS: 76705

== ENCOUNTER → 2022-08-26 10:05 | Outpatient (BNVA) | payer BC, MEDICAID, SELFPAY | PROVIDERS: PCP Internal Medicine; Visit Provider Nurse Practitioner Family | DX: N39.3 Stress incontinence (female) (male) (principal) | CPT/HCPCS: 51798 ==

== ENCOUNTER 2022-08-27 11:33 | Outpatient (REF) | payer BC, MEDICAID, SELFPAY ==
[2022-08-27 12:33] LABS: B Type Natriuretic Peptide < 10 pg/mL (<100)
[2022-08-27 13:04] LABS: Alanine Aminotransferase 35 U/L (0-31); Albumin Level 4.3 g/dL (3.5-5.0); Alkaline Phosphatase 78 U/L (39-117); Anion Gap 12 (12-20); Aspartate Amino Transferase 21 U/L (5-31); Bilirubin Total 0.6 mg/dL (0.0-1.0); Blood Urea Nitrogen 14 mg/dL (9-16); Calcium 9.6 mg/dL (8.4-10.2); Carbon Dioxide 28 mmol/L (22-29); Chloride 106 mmol/L (96-108); Estimated Glomerular Filt Rate > 60; Glucose Random 95 mg/dL (60-115); Potassium 4.6 mmol/L (3.3-5.1); Sodium 141 mmol/L (135-145); Total Protein 6.8 g/dL (6.5-8.0)
[2022-08-27 13:09] LABS: TSH reflex Free T4 1.82 uIU/mL (0.32-4.0)
== END 2022-08-27 11:34 | disposition home or self-care (01) ==
LOC: HO.LAB 11:33
PROVIDERS: Internal Medicine; Visit Provider Nurse Practitioner
DX: R60.9 Edema, unspecified (principal); E89.0 Postprocedural hypothyroidism; Z86.39 Personal history of other endocrine, nutritional and metabolic disease
CPT/HCPCS: 36415; 80053; 83880; 84443

== ENCOUNTER 2022-08-31 09:29 | Outpatient (REF) | payer BC, MEDICAID, SELFPAY ==
--- NOTE | 2022-08-31 09:35 | ECG_ITS ---
Test Reason : r60.9 Blood Pressure : / mmHG Vent. Rate : 076 BPM Atrial Rate : 076 BPM P-R Int : 168 ms QRS Dur : 084 ms QT Int : 376 ms P-R-T Axes : 049 -04 021 degrees QTc Int : 423 ms Normal sinus rhythm Normal ECG When compared with ECG of 26-DEC-2018 14:58, No significant change was found Referred By: Divina Warner Electronically Signed By:AQUILINO MAR MD
== END 2022-08-31 09:30 | disposition home or self-care (01) ==
LOC: HO.XRAY 09:29
PROVIDERS: PCP Internal Medicine; Visit Provider Nurse Practitioner
DX: R60.9 Edema, unspecified (principal); T50.905A Adverse effect of unspecified drugs, medicaments and biological substances, initial encounter
CPT/HCPCS: 93005

== ENCOUNTER → 2022-10-19 09:25 | Outpatient (BNVA) | payer BC, MEDICAID, SELFPAY | PROVIDERS: PCP Internal Medicine; Visit Provider Internal Medicine ==

== ENCOUNTER 2022-10-26 07:30 | Outpatient (REF) | payer BC, OTHER, SELFPAY ==
--- NOTE | ~2022-10-26 | MM_ITS ---
EXAMINATION: MM SCREENING DIGITAL BREAST TOMOSYNTHESIS, BILATERAL CLINICAL INFORMATION: Screening. Asymptomatic. Reduction mammoplasty, 2018. The lifetime risk of breast cancer based on the Tyrer-Cuzick Model is 14%. COMPARISON: Mammography: 10/21/2021, 05/09/2020, 06/27/2019 TECHNIQUE: Digital breast tomosynthesis is performed in both the craniocaudal and mediolateral oblique views along with computer-aided detection (CAD). Synthesized 2D images are generated from the tomosynthesis. FINDINGS: There are scattered areas of fibroglandular density (ACR BI-RADS breast composition Category b). There are no significant masses, abnormal calcifications, or other abnormalities. Incidental intramammary node again seen posterior upper outer right breast. No developing density or architectural abnormality. The axilla and skin contours are unremarkable. MM/MM tomosynthesis screening BI IMPRESSION: No mammographic evidence of malignancy. ASSESSMENT: BI-RADS 2: Benign RECOMMENDATION: Routine annual mammography screening. This patient's information was entered into a reminder system with a target due date for their next mammogram.
== END 2022-10-26 07:31 | disposition home or self-care (01) ==
LOC: HO.MAMMO 07:30
PROVIDERS: PCP Internal Medicine; Visit Provider Internal Medicine
DX: Z12.31 Encounter for screening mammogram for malignant neoplasm of breast (principal)
CPT/HCPCS: 77063; 77067

== ENCOUNTER → 2022-11-17 14:03 | Outpatient (REF) | payer BC, OTHER, SELFPAY ==
--- NOTE | 2022-11-17 14:06 | CA_ITS ---
Transthoracic Echocardiogram Patient (Last, First, Middle): Shayy Laird M Gender: Female Date of : 1970 Age: 52 Procedure Date: 11/17/2022 Procedure Type: Transthoracic Echocardiogram Location: OP Height: 167.64 cm Weight: 111.13 kg BSA: 2.18 m2 Heart Rate: 80 bpm BP: 115 / 80 mmHg Field Geologist: VICENTE Referring MD: Masha Mcfadden MD Symptoms: R60.9 - Edema, unspecified Study Quality: Adequate W contrast ECG Rhythm: Sinus Conclusions: - The left ventricular systolic function is normal. The calculated ejection fraction is 62% by biplane method. - The basal inferolateral segment is akinetic. - There is moderate septal and moderate basal asymmetric hypertrophy. - No obvious valvular pathology seen on this study. Findings Procedure Information Contrast agent, definity, is being given per protocol without apparent complications. Left Ventricle Normal left ventricular cavity size. There is mildly increased left ventricular wall thickness. The left ventricular systolic function is normal. The calculated ejection fraction is 62% by biplane method. There is no evidence of regional wall motion abnormalities. Diastolic function is normal for age. There is moderate septal and moderate basal asymmetric hypertrophy. Wall Motion Rest Echo Findings The basal inferolateral segment is akinetic. Right Ventricle Normal right ventricular cavity size. There is mildly decreased right ventricular systolic function. Atria Both atria are normal in size. Aortic Valve There is a normal trileaflet aortic valve. There is no aortic valve stenosis. There is no aortic valve regurgitation. Mitral Valve The mitral valve appears normal. There is no mitral valve regurgitation. There is no mitral valve stenosis. Pulmonic Valve The pulmonic valve is likely normal. Tricuspid Valve There is trace tricuspid valve regurgitation. There is no evidence of pulmonary hypertension. Great Vessels The asc aorta is normal in size. Venous The inferior vena cava was not well visualized. The inferior vena cava is normal in size. Pericardium/Pleural There is no evidence of pericardial effusion. Prior Study Comparison Changes noted compared to prior study dated: 09/05/2017. See comment on wall motion. Recommendations, Care & Conclusions No obvious valvular pathology seen on this study. Measurements 2D Linear Measurements IVSd: 1.29 0.6-0.9/0.6-1.0 cm LVIDd: 3.85 3.9-5.3/4.2-5.9 cm LVIDd Index: 1.77 2.4-3.2/2.2-3.1 cm/m2 LVIDs: 2.19 2.0-3.6 cm LVPWd: 1.16 0.7-1.1 cm LA Diam: 3.60 2.7-3.8/3.0-4.0 cm LAIDs Index: 1.65 1.5-2.3 cm/m2 LV Mass: 200.70 67-162/88-224 g LV Mass Index: 92.06 43-95/49-115 g/m2 LVOT Diam: 2.10 3.0+(-)1.3 cm 2D Systolic Function EF 4C: 64.10 >55% EF 2C: 60.60 >55% EF BiP: 62.40 >55% Mitral Valve MV Pk E: 0.79 MV PK A: 0.75 MV Decel Time: 301.00 E/A: 1.10 E'Lateral: 9.57 E'Medial: 9.46 E/E' Med: 8.40 E/E' Lat: 8.30 PHT: 88.00 MVA PHT: 2.50 Decel [place]: 2.64 Aortic Valve AoV Pk Calderon: 1.03 AoV Mn Calderon: 0.72 AoV VTI: 0.20 AoV Pk Grad: 4.00 Aov Mn Grad: 2.00 FERMÍN Cont.VTI: 2.65 LVOT LVOT Pk Calderon: 0.88 LVOT Mn Calderon: 0.60 LVOT VTI: 0.15 LVOT Pk Grad: 3.00 LVOT Mn Grad: 2.00 LVOT Diam: 2.10 LVOT Area: 3.46 Diastolic Function MV Pk E: 0.79 MV Pk A: 0.75 E/A: 1.10 E'Medial: 9.46 E/E' Med: 8.40 E' Laterial: 9.57 E/E' Lat: 8.30 Right Ventricle TAPSE (mm): 17.30 TVS' Calderon: 10.40 Tricuspid Valve TR Pk Calderon: 1.45 TR Pk Grad: 8.00 RA Press: 3.00 RVSP: 11.00 Great Vessels Aorta Sinus of Valsalva: 3.70 2.0-3.5 cm Ao Asc: 3.50 2.1-3.4 cm Pulmonary Valve PV Pk Calderon: 0.75 Peak PV Grad: 2.00 Updated in Other Vendor System with Status of Final Aston Elder MD electronically signed on 11/18/2022 12:01:39 PM with status of Final
== END ==
LOC: HO.CARD 14:03
PROVIDERS: Visit Provider Internal Medicine
DX: R60.9 Edema, unspecified (principal)
CPT/HCPCS: 93306; Q9957

== ENCOUNTER → 2022-11-17 14:06 | Outpatient (BNV) | payer BC, OTHER, SELFPAY | PROVIDERS: Visit Provider Internal Medicine | DX: I51.7 Cardiomegaly (principal) | CPT/HCPCS: 93306 ==

== ENCOUNTER 2022-11-25 09:03 | Outpatient (REF) | payer BC, SELFPAY ==
[2022-11-25 10:10] LABS: C Reactive Protein 0.93 mg/dL (< or = 0.50); Iron 55 mcg/dL (30-160); Percent Iron Saturation 20 % (15-50); Total Iron Binding Capacity 279 mcg/dL (228-428); Unsaturated Iron Binding 224 ug/dL
[2022-11-25 10:13] LABS: Estimated Average Glucose 111 mg/dL; Hemoglobin A1c % 5.5 %
[2022-11-25 10:21] LABS: Hepatitis A Antibody IgG Nonreactive (Nonreactive); ~Hepatitis A Antibody IgG 0.73 S/CO (0.00-0.99)
[2022-11-25 10:22] LABS: HBS Num1 0.75 mIU/mL (0-7.99); HBsAGNum1 0.35 S/CO (0.00-0.99); Hepatitis B Core Antibody Nonreactive (Nonreactive); Hepatitis B Surface Antigen Negative (Negative); ~HepC Num1 0.13 S/CO (0.00-0.79); ~Hepatitis B Surface Antibody NONREACTIVE (Nonreactive); ~Hepatitis C Antibody Nonreactive (Nonreactive)
[2022-11-25 10:26] LABS: Ferritin 68 ng/mL (10-250); Vitamin D 25-OH Total 24.6 ng/mL (>30)
[2022-11-25 10:33] LABS: Folate 6.1 ng/mL (> or = 4.0); Vitamin B12 397 pg/mL (200-900)
== END 2022-11-25 09:04 | disposition home or self-care (01) ==
LOC: HO.LAB 09:03
PROVIDERS: PCP Internal Medicine; Visit Provider Internal Medicine
DX: R10.9 Unspecified abdominal pain (principal); R19.7 Diarrhea, unspecified; E66.09 Other obesity due to excess calories
CPT/HCPCS: 36415; 82306; 82607; 82728; 82746; 83036; 83540; 86140; 86704; 86706; 86708; 86803; 87340

== ENCOUNTER 2023-01-24 11:33 | Outpatient (AMB) | payer BC, MEDICAID, SELFPAY ==
--- NOTE | 2023-01-24 13:09 | MHC.OFFVISPS ---
Intake Intake Visit Reasons: Depression Allergies lactose [LACTOSE] Allergy (Unknown, Verified 10/19/22 09:32) GI UPSET latex Allergy (Unknown, Uncoded 10/19/22 09:32) unknown Medication List - Last Reconciled 01/24/23 by Baltazar Sigala MD albuterol sulfate 90 mcg/actuation 1 inh inhalation QID PRN amlodipine 5 mg PO DAILY cholecalciferol (vitamin D3) 50 mcg PO DAILY clonazepam 1/2-1 tab 2 x day may take extra 1/2 tab daily as needed guanfacine 1 mg (1/2 x 2 mg) PO TID lamotrigine 150 mg PO DAILY oxcarbazepine 600 mg PO BID peg 3350-electrolytes 236-22.74-6.74 -5.86 gram (Golytely) 240 mL PO Q10M HPI- Psychiatric Chief Complaint: Depression HPI Narrative: Patient seen psychiatric follow-up has been working full-time which she enjoys but has been feeling overwhelmed with responsibilities toward her family. Her mother appears to have cancer her father had reportedly has that dementia illness in the patient is can not feeling responsible. 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 She has been part of taking her mother to appointments. For the patient should she has been more labile. Some anxiety and dysphoria at times racing thoughts and anxiety there is a been a question of mixed states the patient also has ADD. She has been on oxcarbazepine guanfacine lamotrigine with some benefit and clonazepam b.i.d. and she had been doing quite well but again is feeling overwhelmed. She does see a therapist on a regular basis. Patient ihas had a difficult time setting boundaries particularly with love ones Past Psychiatric History: hx mood lability hx adhd atypical bipolar symptoms chronic anxiety Mental Status Exam Mental Status Exam Narrative: Mental Status Exam Narrative: Appearance: Casually dressed Behavior: Cooperative appropriate psychomotor: Within normal limits Speech: Somewhat pressured Thought proccess logical somewhat perseverative Thought content: Initially discussing her work later becomes overwhelmed talking regarding her mother with presumed cancer in her father with presumed Alzheimer's Mood: anxiety Affect: Labile appropriate to mood SI:denies HI:denies VH/AH:none Delusions: None Insight/judgment: Trying to find right balance in helping parents and not overwhelming herself Memory/cog: Intact Assessment and Plan Assessment & Plan (1) ADHD (attention deficit hyperactivity disorder): Status: Acute Code(s): F90.9 - Attention-deficit hyperactivity disorder, unspecified type (2) Cyclothymia: Status: Acute Code(s): F34.0 - Cyclothymic disorder Plan Patiod lability under lot of stress and has mood lability she she feels may be part of her bipolar cycling has asked about being on an antipsychotic for mood instability which we have try to avoid. 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 Self Management counseling: Breathing, Mindfulness and General coping skills Details-Self Mgmt counseling: Issues related to stress in life balance particularly given her own history of cancer and stress related condition Medication management counseling: Effectiveness, Side effects and Dosing range Diagnosis and Prognosis Counseling: Impact of family relationship, Problematic behaviors secondary to diagnosis and Adequacy of current interventions Details: I spent [38] minutes reviewing the record, seeing the patient and documenting in the medical record. Counseling provided to the patient/caregiver as outlined below. Addressed patient/caregiver concerns regarding current medication regime including effective adherence. Addressed patient/caregiver concerns regarding diagnosis and prognosis including accuracy of diagnosis, prognosis over time, impact of diagnosis. Addressed patient/caregiver concerns regarding impact of recent stressors. [facility] Medical History ADHD (attention deficit hyperactivity disorder) Asthma, exercise induced Bipolar 1 disorder Bipolar II disorder with rapid cycling Cyclothymia Dyspepsia Family history of coronary artery disease History of kidney cancer Inflammatory bowel disease Lipid disorder Surgical History H/O colonoscopy H/O right nephrectomy History of bunionectomy History of section History of endometrial ablation History of tubal ligation Hx of elbow surgery Status post breast reduction Family History Father HTN (hypertension) High cholesterol Colon polyp Mother High cholesterol CVD (cardiovascular disease) H/O: hysterectomy Maternal Grandfather HTN (hypertension) Myocardial infarction CVD (cardiovascular disease) Maternal Grandmother CVD (cardiovascular disease) HTN (hypertension) Myocardial infarction Breast cancer, Onset Age: 45 Paternal Grandfather Diabetes mellitus Throat cancer Paternal Grandmother Breast cancer Bone cancer Brother No problems noted. Sister Bone cancer HTN (hypertension) Daughter No problems noted. Daughter No problems noted. Maternal Aunt Breast cancer, Onset Age: 44 Maternal Aunt CVD (cardiovascular disease) Sister Follicular lymphoma Paternal Grandmother Breast cancer Other Mental health disorder Substance use disorder Social History Housing: House Patient Tobacco Use Status: Former Tobacco user Quit Date: 2015 Tobacco use type: Cigarette e-Cigarette/Vaping Use: Never Used service: No Current occupational status: employed Current occupation: [employer] Cognitive needs: No Hearing needs: No Vision needs: No Social History: 27 yo d had granddaughter 1 yr ago pt 2 daughters f has heart condition has 1 b 1 s estranged from rest of family Substance History: none Trauma History: none Coding Level of Care Code Est Pt Level 3 (02767) Therapy 30m w/E&M (56949) Diagnoses ADHD (attention deficit hyperactivity disorder) F90.9 Cyclothymia F34.0
== END 2023-01-24 12:09 | disposition home or self-care (01) ==
LOC: HO.HOP 11:33
PROVIDERS: PCP Internal Medicine; Visit Provider Psychiatry & Neurology Psychiatry
DX: F90.9 Attention-deficit hyperactivity disorder, unspecified type (principal); F34.0 Cyclothymic disorder
CPT/HCPCS: 90833; 99213

== ENCOUNTER → 2023-01-24 11:33 | Outpatient (BNVA) | payer BC, SELFPAY | PROVIDERS: PCP Internal Medicine; Visit Provider Psychiatry & Neurology Psychiatry ==

== ENCOUNTER 2023-02-09 13:34 | Outpatient (AMB) | payer BC, OTHER, MEDICAID, SELFPAY ==
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
== END 2023-02-09 14:39 | disposition home or self-care (01) ==
LOC: HO.HOP 13:34
PROVIDERS: PCP Internal Medicine; Visit Provider Psychiatry & Neurology Psychiatry
DX: F34.0 Cyclothymic disorder (principal); F90.9 Attention-deficit hyperactivity disorder, unspecified type; F41.1 Generalized anxiety disorder
CPT/HCPCS: 90833; 99213

== ENCOUNTER → 2023-02-09 13:34 | Outpatient (BNVA) | payer BC, SELFPAY | PROVIDERS: PCP Internal Medicine; Visit Provider Psychiatry & Neurology Psychiatry ==

== ENCOUNTER 2023-02-25 12:07 | Outpatient (REF) | payer BC, SELFPAY ==
[2023-02-25 14:43] LABS: C Reactive Protein 1.01 mg/dL (< or = 0.50)
[2023-02-25 14:49] LABS: Vitamin D 25-OH Total 35.5 ng/mL (>30)
== END 2023-02-25 12:08 | disposition home or self-care (01) ==
LOC: HO.LAB 12:07
PROVIDERS: PCP Internal Medicine; Visit Provider Internal Medicine
DX: R10.9 Unspecified abdominal pain (principal); R19.7 Diarrhea, unspecified; E55.9 Vitamin D deficiency, unspecified
CPT/HCPCS: 36415; 82306; 86140

== ENCOUNTER 2023-02-28 19:23 | Outpatient (REF) | payer BC, SELFPAY ==
[2023-03-05 21:59] LABS: Calprotectin, Fecal 1740 mcg/g
== END 2023-02-28 19:24 | disposition home or self-care (01) ==
LOC: HO.LNP 19:23
PROVIDERS: Visit Provider Internal Medicine
DX: R10.9 Unspecified abdominal pain (principal); R19.7 Diarrhea, unspecified
CPT/HCPCS: 83993

== ENCOUNTER 2023-03-02 14:20 | Outpatient (REF) | payer BC, SELFPAY ==
[2023-03-02 14:41] LABS: Hematocrit 43.4 % (37.0-47.0); Hemoglobin 14.3 g/dl (12.0-16.0); Mean Corpuscular HGB Conc 32.9 g/dl (31.0-35.0); Mean Corpuscular Hemoglobin 26.8 pg (27.0-33.0); Mean Corpuscular Volume 81.3 fL (80.0-98.0); Mean Platelet Volume 9.7 fL (9.4-12.3); Platelet Count 398 X10*3/uL (160-400); Red Blood Count 5.34 X10*6/uL (4.20-5.50); Red Cell Distribution Width 13.2 % (11.0-16.0); White Blood Count 7.4 X10*3/uL (4.8-10.8)
== END 2023-03-02 14:21 | disposition home or self-care (01) ==
LOC: HO.LAB 14:20
PROVIDERS: PCP Internal Medicine; Visit Provider Internal Medicine
DX: R10.9 Unspecified abdominal pain (principal)
CPT/HCPCS: 36415; 85027

== ENCOUNTER 2023-03-29 15:05 | Outpatient (AMB) | payer BC, MEDICAID, SELFPAY ==
[2023-03-29 15:06] VITALS: BP 120/84; PULSE 88; BMI 38.4
--- NOTE | 2023-03-29 15:06 | A.OFFVIS_ITS ---
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 Hand Required: No Accompanied by: Self / Same As Patient Allergies lactose [LACTOSE] Allergy (Unknown, Verified 03/29/23 15:08) GI UPSET latex Allergy (Unknown, Uncoded 03/29/23 15:08) unknown Medication List - Last Reconciled 03/29/23 by Aston Elder MD albuterol sulfate 90 mcg/actuation 1 inh inhalation QID PRN amlodipine 5 mg PO DAILY cholecalciferol (vitamin D3) 50 mcg PO DAILY clonazepam 1/2-1 tab 2 x day may take extra 1/2 tab daily as needed guanfacine 1 mg PO TID lamotrigine (Lamictal) 150 mg PO BID 90 days oxcarbazepine 600 mg PO BID HPI HPI Comments History of Present Illness Details Shayy is here for consultation regarding a recent echocardiogram reported to be abnormal. She is in a process of getting worked up for Crohn's disease and had an echocardiogram and that showed concern for wall motion abnormality. Patient herself does not have any known history of coronary artery disease. She states she is fairly active with absolutely no limitations. She does not get any angina or shortness of breath or any other cardiac symptoms. Otherwise, she feels fine. [facility] Medical History (Updated 03/18/23 @ 08:38 by Baltazar Sigala MD) Generalized anxiety disorder Bipolar II disorder with rapid cycling ADHD (attention deficit hyperactivity disorder) Cyclothymia Inflammatory bowel disease History of kidney cancer Dyspepsia Asthma, exercise induced Lipid disorder Bipolar 1 disorder Family history of coronary artery disease Surgical History H/O colonoscopy Hx of elbow surgery H/O right nephrectomy Status post breast reduction History of endometrial ablation History of bunionectomy History of tubal ligation History of section Family History Father HTN (hypertension) High cholesterol Colon polyp Mother High cholesterol CVD (cardiovascular disease) H/O: hysterectomy Maternal Grandfather HTN (hypertension) Myocardial infarction CVD (cardiovascular disease) Maternal Grandmother CVD (cardiovascular disease) HTN (hypertension) Myocardial infarction Breast cancer, Onset Age: 45 Paternal Grandfather Diabetes mellitus Throat cancer Paternal Grandmother Breast cancer Bone cancer Brother No problems noted. Sister Bone cancer HTN (hypertension) Daughter No problems noted. Daughter No problems noted. Maternal Aunt Breast cancer, Onset Age: 44 Maternal Aunt CVD (cardiovascular disease) Sister Follicular lymphoma Paternal Grandmother Breast cancer Other Mental health disorder Substance use disorder Social History Housing: House Comment: medicated with Tylenol 975 mg PO at 1312 Patient Tobacco Use Status: Former Tobacco user Quit Date: 2015 Tobacco use type: Cigarette e-Cigarette/Vaping Use: Never Used service: No Current occupational status: employed Current occupation: [employer] Cognitive needs: No Hearing needs: No Vision needs: No Female Reproductive History Menstrual Age of Menarche: 16 Review of Systems Const Denies weakness Eyes Denies loss of vision ENT Denies dizziness Card Denies chest pain, Denies chest pain with activity, Denies syncope, Denies rapid heart rate, Denies pedal edema, Denies edema, Denies leg edema, Denies lightheadedness, Denies palpitations, Denies dyspnea and Denies orthopnea Resp Denies cough, Denies dyspnea and Denies wheezing GI Denies hematochezia and Denies change in stool character Denies hematuria, Denies urinary frequency and Denies dysuria Musc Denies abnormal gait, Denies muscle cramps, Denies muscle weakness, Denies numbness, Denies radiating pain into limb and Denies tingling Skin/Breast Denies nail changes and Denies rash Neuro Denies Abnormal speech present, Denies abnormal gait, Denies dizziness, Denies syncope, Denies loss of vision, Denies memory loss, Denies numbness, Denies tingling and Denies weakness Psych Denies depression and Denies memory loss Endo Denies palpitations Aller/Immun Denies wheezing Physical Exam Vital Signs: Last Vital Signs Pulse 88 03/29/23 15:06 BP 120/84 03/29/23 15:06 BMI result Body Mass Index 38.4 Const General: comfortable and no acute distress Orientation/consciousness: patient oriented x3 HEENT Other: Unremarkable Head: Yes normal to inspection Neck Neck: Yes normal visual inspection Chest Chest palpation & inspection: normal inspection of the chest Resp Auscultation: clear to auscultation bilaterally Cardio Palpation: normal PMI Heart sounds: S1 normal heart sound present, S2 normal heart sound present, no gallops, no murmurs and no rubs GI Palpation (GI): Soft to palpation Back/Spine/Pelvis Other: unremarkable Skin General skin exam: no rashes or lesions noted Neuro General: patient oriented x3 Speech: No Abnormal speech present Extrem General: Yes normal to inspection Psych Mental Status: mental status grossly normal Assessment & Plan Assessment & Plan (1) Abnormal echocardiogram: Code(s): R93.1 - Abnormal findings on diagnostic imaging of heart and coronary circulation Plan In the EKG, underlying rhythm is sinus at 76/Min; no significant ST-T changes and otherwise unremarkable. In the recent echocardiogram, LVEF 62%. Basal inferolateral wall was reported to be akinetic. Also moderate basal septal asymmetric hypertrophy. Cinically, she has got no anginal symptoms but based on the wall motion abnormal ity, we can do a coronary CTA to assess for any obstructive CAD. Once that is completed, we can see her back in follow-up. She states that there is a plan for EGD/colonoscopy and may proceed. Orders: Orders Basic Metabolic Panel 03/04/23 R10.9 - Unspecified abdominal pain CT Cardiac Coronary Angio Today I25.10 - Atherosclerotic heart disease of [place] coronary artery without angina pectoris, R93.1 - Abnormal findings on diagnostic imaging of heart and coronary circulation Medications: Changed From guanfacine 1 mg (1/2 x 2 mg) PO TID 135 tabs 1RF To guanfacine 1 mg PO TID From oxcarbazepine 600 mg PO BID 60 tabs 2RF To oxcarbazepine 600 mg PO BID Coding Level of Care Code New Pt Level 3 (45127) Diagnoses Abnormal echocardiogram R93.1
== END 2023-03-29 15:37 | disposition home or self-care (01) ==
PROVIDERS: PCP Internal Medicine; Visit Provider Internal Medicine
DX: R93.1 Abnormal findings on diagnostic imaging of heart and coronary circulation (principal)
CPT/HCPCS: 99203

== ENCOUNTER → 2023-03-29 15:05 | Outpatient (BNVA) | payer BC, SELFPAY | PROVIDERS: PCP Internal Medicine; Visit Provider Internal Medicine ==

== ENCOUNTER 2023-03-31 10:00 | Outpatient (AMB) | payer BC, MEDICAID, SELFPAY ==
[2023-03-31 12:37] VITALS: BP 110/80; PULSE 96; TEMP 36.5; O2SAT 98
--- NOTE | 2023-03-31 12:37 | AM.OFFWIN_ITS ---
Intake Vital Signs 03/31/23 12:37 Height 5 ft 6 in BP 110/80 Blood Pressure Location Lt brachial Position Sitting Pulse 96 Pulse Source Pulse Oximeter Temp 97.7 F Temp Source Temporal Artery Scan Pulse Oximetry (%) 98 Oxygen Delivery Method Room Air Intake Visit Reasons: EST/sinus infection (Lobby masked) Intake Note: pt is here today for possible sinus infection started on tuesday Patient Tobacco Use Status: Former Tobacco user Quit Date: 2015 Allergies lactose [LACTOSE] Allergy (Unknown, Verified 03/31/23 12:38) GI UPSET latex Allergy (Unknown, Uncoded 03/29/23 15:08) unknown Do you need a note to return to daycare/school/sports/work: Yes HPI HPI Comments History of Present Illness Details The patient presents to urgent care for evaluation of cough and congestion. She reports that about 10 days ago a week before this past Tuesday, she started with a her cold with nasal congestion. Throughout the week her symptoms improved and then this past Tuesday 4 days ago her symptoms returned significantly worse with copious greenish nasal discharge and a cough. She feels sinus pain and pressure. She felt feverish. [facility], [facility] Medical History (Updated 03/18/23 @ 08:38 by Baltazar Sigala MD) Generalized anxiety disorder Bipolar II disorder with rapid cycling ADHD (attention deficit hyperactivity disorder) Cyclothymia Inflammatory bowel disease History of kidney cancer Dyspepsia Asthma, exercise induced Lipid disorder Bipolar 1 disorder Family history of coronary artery disease Surgical History H/O colonoscopy Hx of elbow surgery H/O right nephrectomy Status post breast reduction History of endometrial ablation History of bunionectomy History of tubal ligation History of section Family History Father HTN (hypertension) High cholesterol Colon polyp Mother High cholesterol CVD (cardiovascular disease) H/O: hysterectomy Maternal Grandfather HTN (hypertension) Myocardial infarction CVD (cardiovascular disease) Maternal Grandmother CVD (cardiovascular disease) HTN (hypertension) Myocardial infarction Breast cancer, Onset Age: 45 Paternal Grandfather Diabetes mellitus Throat cancer Paternal Grandmother Breast cancer Bone cancer Brother No problems noted. Sister Bone cancer HTN (hypertension) Daughter No problems noted. Daughter No problems noted. Maternal Aunt Breast cancer, Onset Age: 44 Maternal Aunt CVD (cardiovascular disease) Sister Follicular lymphoma Paternal Grandmother Breast cancer Other Mental health disorder Substance use disorder Social History Housing: House Comment: medicated with Tylenol 975 mg PO at 1312 Patient Tobacco Use Status: Former Tobacco user Quit Date: 2015 Tobacco use type: Cigarette e-Cigarette/Vaping Use: Never Used service: No Current occupational status: employed Current occupation: [employer] Cognitive needs: No Hearing needs: No Vision needs: No Female Reproductive History Menstrual Age of Menarche: 16 Review of Systems Const Reports headache(s) and Denies increased appetite ENT Reports headache(s), Reports nasal obstruction, Denies disequilibrium, Reports post nasal drip, Reports sinus pain and Denies sore throat Card Denies radiating jaw, neck or arm pain and Denies dyspnea Resp Denies hemoptysis and Denies dyspnea Neuro Reports headache(s) and Denies disequilibrium Physical Exam Vital Signs: Last Vital Signs Temp 97.7 F 03/31/23 12:37 Pulse 96 03/31/23 12:37 BP 110/80 03/31/23 12:37 Pulse Ox 98 03/31/23 12:37 Oxygen Delivery Method Room Air 03/31/23 12:37 Const General: healthy appearing and no acute distress Chest Chest palpation & inspection: normal inspection of the chest Resp Effort & Inspection: normal respiratory effort and able to speak in complete sentences Auscultation: clear to auscultation bilaterally Assessment & Plan Assessment & Plan (1) Sinusitis: Code(s): J32.9 - Chronic sinusitis, unspecified Plan Symptoms suggestive of possible bacterial sinusitis given the history of cold that is somewhat improved and then worsened. We will recommend treatment with antibiotic and cough suppressant. Patient agreeable with this plan. Medications: New benzonatate 100 mg PO TID PRN 14 caps 0RF cough azithromycin For 250 mg dose pack: take 500 mg today (day 1), then 250 mg for 4 days (days 2-5) PO 6 tabs 0RF Coding Level of Care Code Est Pt Level 3 (64885) Diagnoses Sinusitis J32.9
== END 2023-03-31 13:32 | disposition home or self-care (01) ==
PROVIDERS: PCP Internal Medicine; Visit Provider Emergency Medicine
DX: J32.9 Chronic sinusitis, unspecified (principal)
CPT/HCPCS: 99213

== ENCOUNTER 2023-07-25 11:58 | Outpatient (AMB) | payer BC, SELFPAY ==
--- NOTE | 2023-07-25 12:13 | MHC.OFFVISPS ---
Intake Intake Visit Reasons: depression Allergies lactose [LACTOSE] Allergy (Unknown, Verified 08/01/23 09:01) GI UPSET latex Allergy (Unknown, Uncoded 07/28/23 08:38) unknown HPI- Psychiatric Chief Complaint: depression HPI Narrative: Pts mother doing better ca in remission NHL mother 73 yo father still driving , pt continues to work FT enjoys the work for [employer]. Enjoys working being productive . Mood stable not cycling in same way has been setting boundaries limits taking 0.5 klonapin bid no panic patient generally with much improved quality of life not overly agitated feels good working 40 hours a week. Feels somewhat fatigued in the afternoon. Past Psychiatric History: hx mood lability hx adhd atypical bipolar symptoms chronic anxiety Assessment and Plan Assessment & Plan (1) Generalized anxiety disorder: Status: Acute Code(s): F41.1 - Generalized anxiety disorder (2) ADHD (attention deficit hyperactivity disorder): Status: Acute Code(s): F90.9 - Attention-deficit hyperactivity disorder, unspecified type (3) Cyclothymia: Status: Acute Code(s): F34.0 - Cyclothymic disorder Plan Now the patient feels more stable she is experiencing some daytime fatigue. We discussed trying to lower the clonazepam to 0.25 mg and then discontinue the morning dose while maintaining the bedtime dose. Also discussed option to lower oxcarbazepine to 300 mg morning 600 mg at bedtime to try and decrease afternoon sedation. Patient has been doing quite well at work able to set boundaries with her family and in general feeling more stable cancer remains in remission and her mother's non-Hodgkin's lymphoma is also in remission which contributes to her stability. Follow-up 2 months above instructions reviewed with the patient Medications: Changed From clonazepam 1/2-1 tab 2 x day may take extra 1/2 tab daily as needed 60 tabs 2RF To clonazepam 0.5 mg PO BID 60 tabs 2RF Counseling and coordination of Care Pt. Self Management counseling: Breathing and Cognitive restructuring Medication management counseling: Effectiveness, Side effects and Dosing range Diagnosis and Prognosis Counseling: Accuracy of diagnosis and Adequacy of current interventions Details: I spent [30] minutes reviewing the record, seeing the patient and documenting in the medical record. Counseling provided to the patient/caregiver as outlined below. Addressed patient/caregiver concerns regarding current medication regime including effective adherence. Addressed patient/caregiver concerns regarding diagnosis and prognosis including accuracy of diagnosis, prognosis over time, impact of diagnosis. Addressed patient/caregiver concerns regarding impact of recent stressors. [facility] Medical History Generalized anxiety disorder Bipolar II disorder with rapid cycling ADHD (attention deficit hyperactivity disorder) Cyclothymia Inflammatory bowel disease History of kidney cancer Dyspepsia Asthma, exercise induced Lipid disorder Bipolar 1 disorder Family history of coronary artery disease Surgical History H/O colonoscopy Hx of elbow surgery H/O right nephrectomy Status post breast reduction History of endometrial ablation History of bunionectomy History of tubal ligation History of section Family History Father HTN (hypertension) High cholesterol Colon polyp History of open heart surgery Mother High cholesterol CVD (cardiovascular disease) H/O: hysterectomy Non-Hodgkin lymphoma Maternal Grandfather HTN (hypertension) Myocardial infarction CVD (cardiovascular disease) Maternal Grandmother CVD (cardiovascular disease) HTN (hypertension) Myocardial infarction Breast cancer, Onset Age: 45 Paternal Grandfather Diabetes mellitus Throat cancer Paternal Grandmother Breast cancer Bone cancer Brother No problems noted. Sister Bone cancer HTN (hypertension) Ovarian cancer Non-Hodgkin lymphoma Daughter No problems noted. Daughter No problems noted. Maternal Aunt Breast cancer, Onset Age: 44 Maternal Aunt CVD (cardiovascular disease) Sister Follicular lymphoma Paternal Grandmother Breast cancer Other Mental health disorder Substance use disorder Social History Housing: House Comment: medicated with Tylenol 975 mg PO at 1312 Patient Tobacco Use Status: Former Tobacco user Quit Date: 2015 Tobacco use type: Cigarette e-Cigarette/Vaping Use: Never Used service: No Current occupational status: employed Current occupation: [employer] Cognitive needs: No Hearing needs: No Vision needs: No Social History: 26 yo d had granddaughter 1 yr ago pt 2 daughters f has heart condition has 1 b 1 s estranged from rest of family Substance History: none Trauma History: none Coding Level of Care Code Est Pt Level 4 (62186) Diagnoses Generalized anxiety disorder F41.1 ADHD (attention deficit hyperactivity disorder) F90.9 Cyclothymia F34.0
== END 2023-07-25 16:48 | disposition home or self-care (01) ==
LOC: HO.HOP 11:58
PROVIDERS: PCP Internal Medicine; Visit Provider Psychiatry & Neurology Psychiatry
DX: F41.1 Generalized anxiety disorder (principal); F90.9 Attention-deficit hyperactivity disorder, unspecified type; F34.0 Cyclothymic disorder
CPT/HCPCS: 99214

== ENCOUNTER → 2023-07-25 11:58 | Outpatient (BNVA) | payer BC, SELFPAY | PROVIDERS: PCP Internal Medicine; Visit Provider Psychiatry & Neurology Psychiatry ==

== ENCOUNTER 2023-07-28 08:09 | Day surgery (SDC) | payer BC, MEDICAID, OTHER, SELFPAY ==
--- NOTE | 2023-07-27 09:54 | P.CONAN_ITS ---
HPI - Anesthesia Eval Consult details Narrative: 52yo F for Upper Endoscopy and Colonoscopy Cardiology referral for abnormal ECHO. Office visit 03/2023. No anginal symptoms and OK to proceed with EGD/[place]. [facility] Active Problems Active Problems: All Active Problems (Updated 03/18/23 @ 08:38 by Baltazar Sigala MD) Generalized anxiety disorder (Acute) Vitamin D deficiency (Acute) Abdominal pain (Acute) Abnormal echocardiogram (Acute) Peripheral edema (Acute) Upper abdominal pain (Acute) Medication adverse effect (Acute) Stress incontinence (Acute) Fluid retention (Acute) Bipolar II disorder with rapid cycling (Acute) ADHD (attention deficit hyperactivity disorder) (Acute) Cyclothymia (Acute) H/O partial thyroidectomy (Acute) History of goiter (Acute) Urine incontinence (Acute) Major depression, recurrent (Acute) Crohn's colitis (Acute) Family history of inflammatory bowel disease (Acute) Abnormal CT of the abdomen (Acute) Abdominal cramping (Acute) Diarrhea (Acute) Nausea (Acute) Obesity due to excess calories (Acute) History of renal cell carcinoma (Acute) Mastodynia of left breast (Acute) Cervical polyp (Acute) At high risk for breast cancer (Acute) Painful arc syndrome of left shoulder (Acute) Upper respiratory tract infection (Acute) Obesity due to excess calories (Acute) Prediabetes (Acute) Well woman exam (Acute) Encounter for general adult medical examination with abnormal findings (Acute) Routine gynecological examination (Acute) Hypertension, essential (Acute) Left breast abscess (Acute) Nipple discharge (Acute) Breast mass, left (Acute) Asthma, exercise induced (Acute) Dyspepsia (Acute) Lipid disorder (Acute) Bipolar 1 disorder (Acute) Family history of coronary artery disease (Acute) Sinusitis chronic, frontal (Acute) Mastoiditis of left side (Acute) Past Medical History Medical History (Updated 03/18/23 @ 08:38 by Baltazar Sigala MD) Generalized anxiety disorder Bipolar II disorder with rapid cycling ADHD (attention deficit hyperactivity disorder) Cyclothymia Inflammatory bowel disease History of kidney cancer Dyspepsia Asthma, exercise induced Lipid disorder Bipolar 1 disorder Family history of coronary artery disease Family History Family History Father HTN (hypertension) High cholesterol Colon polyp Mother High cholesterol CVD (cardiovascular disease) H/O: hysterectomy Maternal Grandfather HTN (hypertension) Myocardial infarction CVD (cardiovascular disease) Maternal Grandmother CVD (cardiovascular disease) HTN (hypertension) Myocardial infarction Breast cancer, Onset Age: 45 Paternal Grandfather Diabetes mellitus Throat cancer Paternal Grandmother Breast cancer Bone cancer Brother No problems noted. Sister Bone cancer HTN (hypertension) Daughter No problems noted. Daughter No problems noted. Maternal Aunt Breast cancer, Onset Age: 44 Maternal Aunt CVD (cardiovascular disease) Sister Follicular lymphoma Paternal Grandmother Breast cancer Other Mental health disorder Substance use disorder Family history of problems with anesthesia: No Surgical History Surgical History H/O colonoscopy Hx of elbow surgery H/O right nephrectomy Status post breast reduction History of endometrial ablation History of bunionectomy History of tubal ligation History of section History of Problems with Anesthesia: No Social History Social History Housing: House Comment: medicated with Tylenol 975 mg PO at 1312 Patient Tobacco Use Status: Former Tobacco user Quit Date: 2015 Tobacco use type: Cigarette e-Cigarette/Vaping Use: Never Used service: No Current occupational status: employed Current occupation: [employer] Cognitive needs: No Hearing needs: No Vision needs: No Meds Allergies Allergy/AdvReac Type Severity Reaction Status Date / Time lactose [LACTOSE] Allergy Unknown GI UPSET Verified 03/31/23 12:38 latex Allergy Unknown unknown Uncoded 03/29/23 15:08 Home Medications Medication Instructions Recorded Confirmed Last Taken Type guanfacine 2 mg tablet 1 mg PO TID 03/29/23 03/29/23 Unknown History Exam Pertinent Lab Results Pertinent Lab Results: Laboratory Tests 03/02/23 14:25 WBC 7.4 Hgb 14.3 Hct 43.4 Plt Count 398 Narrative Narrative: Per 03/2023 In the EKG, underlying rhythm is sinus at 76/Min; no significant ST-T changes and otherwise unremarkable. In the recent echocardiogram, LVEF 62%. Basal inferolateral wall was reported to be akinetic. Also moderate basal septal asymmetric hypertrophy. Cinically, she has got no anginal symptoms but based on the wall motion abnormality, we can do a coronary CTA to assess for any obstructive CAD. Assessment and Plan Assessment Anesthesia Assessment: Chart Reviewed Final Anesthetic Review Family History of Problems with Anesthesia: No History of Problems with Anesthesia: No
[2023-07-28 08:44] VITALS: BMI 37.9
[2023-07-28 08:52] VITALS: BP 125/86; PULSE 92; RESP 16; TEMP 36.6; O2SAT 95
[2023-07-28] MEDS: Lactated Ringers 1,000 ML 100 ML IVCONT (09:10)
--- NOTE | 2023-07-28 11:23 | MHC.SHP ---
Pre-Procedural Eval Section A - 24 Hr Update-Section A only Date of Service: 07/28/23 Section B - Complete if H&P > 30 days Chief Complaint: Upper abdominal pain,diarrhea Details of Present Illness: Medical History ADHD (attention deficit hyperactivity disorder) Asthma, exercise induced Bipolar 1 disorder Bipolar II disorder with rapid cycling Cyclothymia Dyspepsia Family history of coronary artery disease History of kidney cancer Inflammatory bowel disease Lipid disorder Surgical History H/O colonoscopy H/O right nephrectomy History of bunionectomy History of section History of endometrial ablation History of tubal ligation Hx of elbow surgery Status post breast reduction Present Medications: see Short Stay Collaborative assessment Allergies: Allergies Allergy/AdvReac Type Severity Reaction Status Date / Time lactose [LACTOSE] Allergy Unknown GI UPSET Verified 07/28/23 08:38 latex Allergy Unknown unknown Uncoded 07/28/23 08:38 Review of Systems Review of Systems Comment: Ten point ROS unchanged from previous documentation Exam Exam Comment: Gen appear: No acute distress HEENT: no icterus Chest: No overt resp distress Abd: soft, nontender, nondistended Psych: Stable affect, answering questions appropriately Neuro: A/Ox3 noted to move all extremities spontaneously Ext: no peripheral edema Plan Diagnosis/Plan: Unchanged I have reviewed the history and physical and performed a pertinent physical examination on my patient. No changes have occurred unless specified. Plan for EGD and colonoscopy to evaluate abdominal pain, GERD and chronic diarrhea Time Spent With Patient Time: Total time managing care of this patient today ____ minutes.
--- NOTE | 2023-07-28 11:27 | P.OP_ITS ---
Operative Note Operative Note Date of Service: 07/28/23 Narrative: Procedure: Esophagogastroduodenoscopy and colonoscopy Endoscopist: Masha Mcfadden MD Indication: Abd pain, chronic diarrhea Anesthesia Provider: Dr Irene Coe Anesthesia Type: MAC Instrument: Olympus GIF-H190 and [id number]-[id number] ?? EGD Procedure:?? The procedure, indications, preparation and potential complications were reviewed with the patient, who indicated understanding and gave written informed consent to proceed. A physical exam was performed. The endoscope was introduced through the mouth, and advanced to the duodenum. The mucosa was carefully examined on slow withdrawal of the endoscope. The patient tolerated the procedure well. There were no immediate complications.? ? EGD Findings:? * Esophagus:? A small local patch of heterotopic gastric mucosa was noted in the upper esophagus, otherwise normal mucosa noted in the entire esophagus. The Z line was at 35 cm. Cold forceps biopsies were taken from lower esophagus for histology. * Stomach:? Normal gastric mucosa. Retroflexion was performed in the cardia. * Duodenum:? Small erosions and ulcerations were noted in the second portion of the duodenum. Cold forceps biopsies were taken of the duodenal bulb and 2nd portion of duodenal to rule out celiac sprue. Colonoscopy Procedure: The patient was then turned for the colonoscopy. A digital rectal exam was perf ormed which was abnormal due to finding of ext hemorrhoids. A distal attachment cap was affixed to the tip of the colonoscope which was then inserted through the anus and advanced through the colon to the cecum at 75 cm and terminal ileum. Ileocecal valve and appendiceal orifice were identified. Mucosa was carefully examined under high definition white light as the instrument was slowly withdrawn in a retrograde panoramic fashion. Retroflexion was performed in rectum. The procedure was not difficult. There were no immediate obvious complications. The quality of the prep was BBPS: 2+2+3 = adequate Withdrawal time 20 minutes. Limitations: No limitations. Findings: Mucosa: Patchy erythema and whitish exudates in sigmoid colon, distal descending colon and proximal transverse colon. Rectum appeared normal. ICV was stenosed and erythematous but scope was able to traverse through. Diffuse erythema and ulceration of the terminal ileum was noted. There was also narrowing after intubating the TI to 7 cm, that could not be traversed with the scope. Cold forceps biopsies were taken from TI, ic valve, and colon. Protruding lesions: * Medium internal hemorrhoids without stigmata of recent bleeding. Impression: * Inlet patch * Normal stomach * Duodenitis (biopsy) * Terminal ileitis and patchy colitis with rectal sparing (biopsy) * Internal and external hemorrhoids Recommendations * Appearance most consistent with Crohns disease. * Follow biopsy results. Our office will call or send a letter with results within 7-10 days. * Will likely need anti-TNF therapy - poor tolerance to Humira in past, will review use of Remicade * Avoid NSAIDs
--- NOTE | 2023-07-28 11:52 | HO.ANESPROP2 ---
[facility] Active Problems Active Problems: All Active Problems (Updated 03/18/23 @ 08:38 by Baltazar Sigala MD) Vitamin D deficiency (Acute) Abdominal pain (Acute) Abnormal echocardiogram (Acute) Peripheral edema (Acute) Upper abdominal pain (Acute) Medication adverse effect (Acute) Stress incontinence (Acute) Fluid retention (Acute) H/O partial thyroidectomy (Acute) History of goiter (Acute) Urine incontinence (Acute) Major depression, recurrent (Acute) Crohn's colitis (Acute) Family history of inflammatory bowel disease (Acute) Abnormal CT of the abdomen (Acute) Abdominal cramping (Acute) Diarrhea (Acute) Nausea (Acute) Obesity due to excess calories (Acute) Mastodynia of left breast (Acute) Cervical polyp (Acute) At high risk for breast cancer (Acute) Painful arc syndrome of left shoulder (Acute) Upper respiratory tract infection (Acute) Obesity due to excess calories (Acute) Prediabetes (Acute) Well woman exam (Acute) Encounter for general adult medical examination with abnormal findings (Acute) Routine gynecological examination (Acute) Hypertension, essential (Acute) Left breast abscess (Acute) Nipple discharge (Acute) Breast mass, left (Acute) History of renal cell carcinoma (Acute) Sinusitis chronic, frontal (Acute) Mastoiditis of left side (Acute) Generalized anxiety disorder (Acute) Bipolar II disorder with rapid cycling (Acute) ADHD (attention deficit hyperactivity disorder) (Acute) Cyclothymia (Acute) Asthma, exercise induced (Acute) Dyspepsia (Acute) Lipid disorder (Acute) Bipolar 1 disorder (Acute) Family history of coronary artery disease (Acute) Past Medical History Medical History Generalized anxiety disorder Bipolar II disorder with rapid cycling ADHD (attention deficit hyperactivity disorder) Cyclothymia Inflammatory bowel disease History of kidney cancer Dyspepsia Asthma, exercise induced Lipid disorder Bipolar 1 disorder Family history of coronary artery disease Functional capacity: independent ambulation Patient : No Family History Family History Father HTN (hypertension) High cholesterol Colon polyp Mother High cholesterol CVD (cardiovascular disease) H/O: hysterectomy Maternal Grandfather HTN (hypertension) Myocardial infarction CVD (cardiovascular disease) Maternal Grandmother CVD (cardiovascular disease) HTN (hypertension) Myocardial infarction Breast cancer, Onset Age: 45 Paternal Grandfather Diabetes mellitus Throat cancer Paternal Grandmother Breast cancer Bone cancer Brother No problems noted. Sister Bone cancer HTN (hypertension) Daughter No problems noted. Daughter No problems noted. Maternal Aunt Breast cancer, Onset Age: 44 Maternal Aunt CVD (cardiovascular disease) Sister Follicular lymphoma Paternal Grandmother Breast cancer Other Mental health disorder Substance use disorder Family history of problems with anesthesia: No Surgical History Surgical History H/O colonoscopy Hx of elbow surgery H/O right nephrectomy Status post breast reduction History of endometrial ablation History of bunionectomy History of tubal ligation History of section History of Problems with Anesthesia: No Social History Social History Housing: House Comment: medicated with Tylenol 975 mg PO at 1312 Patient Tobacco Use Status: Former Tobacco user Quit Date: 2015 Tobacco use type: Cigarette e-Cigarette/Vaping Use: Never Used Use of substances other than those prescribed or required for medical reasons: No Are you DNR?: No Advance Directives: No Advance Directives Information Provided: Yes service: No Current occupational status: employed Current occupation: [employer] Cognitive needs: No Hearing needs: No Vision needs: No Meds Allergies Allergy/AdvReac Type Severity Reaction Status Date / Time lactose [LACTOSE] Allergy Unknown GI UPSET Verified 07/28/23 08:38 latex Allergy Unknown unknown Uncoded 07/28/23 08:38 Active Medications: Current Medications Lactated Ringer's (Lr) 1,000 mls @ 100 mls/hr IVCONT .Q10H GENARO Last Admin: 07/28/23 09:10 Dose: 100 mls/hr Home Medications Medication Instructions Recorded Confirmed Last Taken Type guanfacine 2 mg tablet 1 mg PO TID 03/29/23 07/28/23 Unknown History Exam Height,Weight and Vital Signs: Height 5 ft 6 in Weight 106.594 kg Last Vital Signs Temp 97.9 F 07/28/23 08:52 Pulse 92 07/28/23 08:52 Resp 16 07/28/23 08:52 BP 125/86 07/28/23 08:52 Pulse Ox 95 07/28/23 08:52 O2 Del Method Room Air 07/28/23 08:52 Airway Mallampati Class: II TM Dist: >3cm Neck ROM: Full Heart: RRR Lungs: CTA Assessment and Plan Final Anesthetic Review Family History of Problems with Anesthesia: No History of Problems with Anesthesia: No NPO: Yes ASA Class: III Final Preanesthetic Review: Meds/Allgs Chart Reviewed, Consent Obtained/Reviewed and Anes Risks/Benef Reviewed Patient Risk: Intermediate Procedure Risk: Low Anesthetic Plan Anesthetic Plan: MAC: Disposition: Standard PACU
[2023-07-28 12:30] VITALS: BP 120/82; PULSE 98; RESP 18; TEMP 36.7; O2SAT 96
[2023-07-28 12:45] VITALS: BP 115/79; PULSE 92; RESP 18; TEMP 36.4; O2SAT 97
--- NOTE | 2023-07-28 13:06 | HO.POSTANES ---
Post Anesthesia Evaluation Post Anesthesia Evaluation Date of Service: 07/28/23 Vital Signs: Vital Signs Temp Pulse Resp BP Pulse Ox O2 Del Method 07/28/23 12:45 97.5 F 92 18 115/79 97 Room Air 07/28/23 12:30 98.0 F 98 18 120/82 96 Room Air 07/28/23 08:52 97.9 F 92 16 125/86 95 Room Air Anesthesia: Monitored Mental Status: Awake Pain Control: Satisfactory Nausea/Vomiting: None Hydration: Adequate Anesthesia-Related Issues: No Anes. Related Issues
== END 2023-07-28 13:25 | disposition home or self-care (01) ==
PROVIDERS: PCP Internal Medicine; Visit Provider Internal Medicine
PROC: (CPT 45380; principal; 2023-07-28 10:50)
DX: K52.9 Noninfective gastroenteritis and colitis, unspecified (principal); K50.00 Crohn's disease of small intestine without complications; K64.8 Other hemorrhoids; K64.4 Residual hemorrhoidal skin tags; R10.10 Upper abdominal pain, unspecified; R10.13 Epigastric pain; Q39.8 Other congenital malformations of esophagus; K29.80 Duodenitis without bleeding; E75.6 Lipid storage disorder, unspecified; J45.990 Exercise induced bronchospasm; Z85.528 Personal history of other malignant neoplasm of kidney; F31.81 Bipolar II disorder; Z79.899 Other long term (current) drug therapy; Z91.040 Latex allergy status; Z87.891 Personal history of nicotine dependence
CPT/HCPCS: 45380; 43239; 88305; 88313; J2704

== ENCOUNTER → 2023-07-28 08:09 | Outpatient (BNV) | payer BC, SELFPAY | PROVIDERS: PCP Internal Medicine; Visit Provider Internal Medicine | DX: K29.80 Duodenitis without bleeding (principal); K22.89 Other specified disease of esophagus; K52.9 Noninfective gastroenteritis and colitis, unspecified; K64.8 Other hemorrhoids | CPT/HCPCS: 43239; 45380 ==

== ENCOUNTER 2023-08-01 08:54 | Outpatient (AMB) | payer BC, SELFPAY ==
--- NOTE | 2023-08-01 09:00 | MHC.OFFVIS ---
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 No complaints. Last Pap/HPV was negative in 07/22 Last Mammogram was BI-RADS 2 in 10/22 Last Colonoscopy was in 07/23 [facility] Medical History Generalized anxiety disorder Bipolar II disorder with rapid cycling ADHD (attention deficit hyperactivity disorder) Cyclothymia Inflammatory bowel disease History of kidney cancer Dyspepsia Asthma, exercise induced Lipid disorder Bipolar 1 disorder Family history of coronary artery disease Surgical History H/O colonoscopy Hx of elbow surgery H/O right nephrectomy Status post breast reduction History of endometrial ablation History of bunionectomy History of tubal ligation History of section Family History Father HTN (hypertension) High cholesterol Colon polyp History of open heart surgery Mother High cholesterol CVD (cardiovascular disease) H/O: hysterectomy Non-Hodgkin lymphoma Maternal Grandfather HTN (hypertension) Myocardial infarction CVD (cardiovascular disease) Maternal Grandmother CVD (cardiovascular disease) HTN (hypertension) Myocardial infarction Breast cancer, Onset Age: 45 Paternal Grandfather Diabetes mellitus Throat cancer Paternal Grandmother Breast cancer Bone cancer Brother No problems noted. Sister Bone cancer HTN (hypertension) Ovarian cancer Non-Hodgkin lymphoma Daughter No problems noted. Daughter No problems noted. Maternal Aunt Breast cancer, Onset Age: 44 Maternal Aunt CVD (cardiovascular disease) Sister Follicular lymphoma Paternal Grandmother Breast cancer Other Mental health disorder Substance use disorder Social History Housing: House Comment: medicated with Tylenol 975 mg PO at 1312 Patient Tobacco Use Status: Former Tobacco user Quit Date: 2015 Tobacco use type: Cigarette e-Cigarette/Vaping Use: Never Used service: No Current occupational status: employed Current occupation: [employer] Cognitive needs: No Hearing needs: No Vision needs: No Female Reproductive History Menstrual Age of Menarche: 16 Total pregnancies: 2 Full term: 2 Number of Living Children: 2 Date of last pap smear: 07/19/22 (neg pap and hpv) Date of Mammogram: 10/26/22 Other: colonoscopy 07/27/23 Review of Systems Const All systems reviewed & are unremarkable except as noted in HPI and below Card Reports as per HPI Resp Reports as per HPI GI Reports as per HPI and Reports no additional complaints Reports as per HPI Physical Exam Vital Signs: BMI result Body Mass Index 38.6 Const General: cooperative, healthy appearing and comfortable Chest Chest palpation & inspection: normal inspection of the chest and normal palpation of entire chest wall Breast/axilla inspection: normal inspection of the breasts and normal inspection of the axillae Breast/axilla palpation: normal palpation of the breasts, normal palpation of the axillae and no axillary lymphadenopathy Resp Effort & Inspection: normal respiratory effort Auscultation: clear to auscultation bilaterally Percussion: percussion normal Cardio Palpation: normal PMI Rate: regular rate Rhythm: regular rhythm Heart sounds: no murmurs and no rubs Peripheral pulses: Peripheral pulses 2+ throughout GI Inspection: Yes normal to inspection Palpation (GI): Soft to palpation, nontender, no guarding, not rigid and No hepatosplenomegaly present Percussion: Yes normal to percussion Auscultation: normal bowel sounds Rectal Exam - Female: deferred General: Yes bladder normal to palpation External Female Exam: No lesion Speculum Exam - Vagina: normal appearance of the vagina, normal palpation, normal vaginal discharge and not erythematous Speculum Exam - Cervix: normal appearance of the cervix and normal palpation Bimanual exam- vagina & uterus: normal bimanual exam, normal palpation, uterine size normal, bladder normal to palpation, consistency normal and normal palpation Bimanual Exam- Adnexa, other: normal adnexae, no masses and no tenderness Assessment & Plan Assessment & Plan (1) Well woman exam: Code(s): Z01.419 - Encounter for gynecological examination (general) (routine) without abnormal findings Plan: Co testing not indicated this year. Counseled the patient about the recommended dietary allowance of 1200 mg of Calcium & 600 IU of vitamin D. Instructions given the patient to schedule next screening Mammogram in 10/23. The patient was instructed to perform monthly self-breast exams and schedule annual exam in a year. All questions answered and the patient verbalized understanding. Coding Level of Care Code Est Pt Prev Care 40-64y(34254) Diagnoses Well woman exam Z01.419
[2023-08-01 09:01] VITALS: BP 118/76; BMI 38.6
== END 2023-08-01 10:45 | disposition home or self-care (01) ==
LOC: HO.HWS 08:54
PROVIDERS: PCP Internal Medicine; Visit Provider Obstetrics & Gynecology
DX: Z01.419 Encounter for gynecological examination (general) (routine) without abnormal findings (principal)
CPT/HCPCS: 99396

== ENCOUNTER → 2023-08-01 08:54 | Outpatient (BNVA) | payer BC, SELFPAY | PROVIDERS: PCP Internal Medicine; Visit Provider Obstetrics & Gynecology ==

== ENCOUNTER 2023-08-08 11:16 | Outpatient (AMB) | payer BC, SELFPAY ==
--- NOTE | 2023-08-08 11:19 | A.OFFVIS_ITS ---
Intake Vital Signs 08/08/23 11:21 Height 5 ft 6 in Weight 240 lb 4.862 oz BMI 38.8 BP 129/70 Blood Pressure Location Lt brachial Position Sitting Pulse 76 Intake Visit Reasons: S/P EGD and Telephone Intake Note: Shayy presents in the office as a follow up egd and colo. CC: She is not having any concerns - just here for results. She wants to discuss remicade therapy. Allergies lactose [LACTOSE] Allergy (Unknown, Verified 08/08/23 11:20) GI UPSET latex Allergy (Unknown, Uncoded 08/08/23 11:20) unknown HPI HPI Comments History of Present Illness Details 52y.o F with PMH of R sided renal cell c a s/p partial nephrectomy, bipolar II disorder, ADHD, obesity, ? hx of crohns disease who is here for second opinion. To recap, pt had a CT Abd/pel without contrast in 10/2021 which was ordered by Urology for lower back pain to r/o urinary obstruction from kidney stone. This showed wall thickening in T.I with prominent vasa recta and lymph nodes. Pt subsequently had blood and stool testing - fecal calopro 1200 with prometheus panel suggestive of IBD but inconclusive for Crohns vs UC. She was then started on budosenide followed by Humira. Humira was stopped in August after she developed generalised body swelling. She was then put on mesalamine and budesonide which she also stopped 3 weeks ago due to a URI. Pt has not had a diagnostic ileocolonoscopy for endoscopic/histologic confirmation of IBD. Last colo in 2015 (Dr Keyes) was fair prep without any mucosal abnormality. Currently, main sx are intermittent abd pain, and loose watery stools triggered by certain foods such as coffee, greasy food, dairy etc. Has 1 BM per day. No blood. No unintentional weight loss. Strong fam hx of IBD. 07/28/23 Impression: * Inlet patch * Normal stomach * Duodenitis (biopsy) * Terminal ileitis and patchy colitis with rectal sparing (biopsy) * Internal and external hemorrhoids Diagnosis A. Duodenum, biopsy: Small intestinal mucosa within normal limits. B. Esophagus, lower, biopsy: Squamous epithelium within normal limits; no inflammation seen. C. Esophagus, middle, biopsy: Squamous epithelium within normal limits; no inf lammation seen. D. Terminal ileum, biopsy: Ileocolonic mucosa with surface hyperplastic changes. E. Ileocecal valve, biopsy: Colonic mucosa within normal limits. F. Cecum, biopsy: Colonic mucosa within normal limits. G. Colon, ascending, biopsy: Colonic mucosa within normal limits. H. Colon, transverse, biopsy: Focally active colitis. I. Colon, descending, biopsy: Focally active colitis. J. Colon, sigmoid, biopsy: Mildly active colitis. K. Rectum, biopsy: Rectal mucosa within normal limits. Comment: Fully developed chronic injury is not identified in any of the samples. No dysplasia is seen 08/08/23: Patient continues to report the runs specially after eating. No blood in stool. Patient also reports diffuse joint pains especially lower back pain. EGD and colonoscopy results reviewed with the patient, which are highly suggestive of Crohn's disease in the current clinical context, although no chronic injury noted on histology. [facility] Medical History (Updated 08/08/23 @ 11:39 by Masha Mcfadden MD) Generalized anxiety disorder Bipolar II disorder with rapid cycling ADHD (attention deficit hyperactivity disorder) Cyclothymia Inflammatory bowel disease History of kidney cancer Dyspepsia Asthma, exercise induced Lipid disorder Bipolar 1 disorder Family history of coronary artery disease Surgical History (Updated 08/08/23 @ 11:20 by GINNY Smith) History of esophagogastroduodenoscopy (EGD) H/O colonoscopy Hx of elbow surgery H/O right nephrectomy Status post breast reduction History of endometrial ablation History of bunionectomy History of tubal ligation History of section Family History Father HTN (hypertension) High cholesterol Colon polyp History of open heart surgery Mother High cholesterol CVD (cardiovascular disease) H/O: hysterectomy Non-Hodgkin lymphoma Maternal Grandfather HTN (hypertension) Myocardial infarction CVD (cardiovascular disease) Maternal Grandmother CVD (cardiovascular disease) HTN (hypertension) Myocardial infarction Breast cancer, Onset Age: 45 Paternal Grandfather Diabetes mellitus Throat cancer Paternal Grandmother Breast cancer Bone cancer Brother No problems noted. Sister Bone cancer HTN (hypertension) Ovarian cancer Non-Hodgkin lymphoma Daughter No problems noted. Daughter No problems noted. Maternal Aunt Breast cancer, Onset Age: 44 Maternal Aunt CVD (cardiovascular disease) Sister Follicular lymphoma Paternal Grandmother Breast cancer Other Mental health disorder Substance use disorder Social History Housing: House Comment: medicated with Tylenol 975 mg PO at 1312 Patient Tobacco Use Status: Former Tobacco user Quit Date: 2015 Tobacco use type: Cigarette e-Cigarette/Vaping Use: Never Used service: No Current occupational status: employed Current occupation: [employer] / [employer] Cognitive needs: No Hearing needs: No Vision needs: No Female Reproductive History Menstrual Age of Menarche: 16 Review of Systems Const All systems reviewed & are unremarkable except as noted in HPI and below Physical Exam Vital Signs: Last Vital Signs Pulse 76 08/08/23 11:21 BP 129/70 08/08/23 11:21 BMI result Body Mass Index 38.8 Gen appear: No acute distress HEENT: no icterus Chest: No overt resp distress Abd: soft, nontender, nondistended Psych: Stable affect, answering questions appropriately Neuro: A/Ox3 noted to move all extremities spontaneously Ext: no peripheral edema Assessment & Plan Assessment & Plan (1) Bilateral hip pain: Code(s): M25.551 - Pain in right hip; M25.552 - Pain in left hip (2) Crohn's disease: Code(s): K50.90 - Crohn's disease, unspecified, without complications (3) Abdominal pain: Code(s): R10.9 - Unspecified abdominal pain (4) Diarrhea: Code(s): R19.7 - Diarrhea, unspecified Plan Discussed with the patient, that although no definitive chronic injury noted on histology to suggest inflammatory bowel disease, in the overall clinical context of longstanding abdominal pain with diarrhea, imaging findings, elevated fecal calprotectin, and previous prompt response of GI symptoms to steroid therapy, she most likely has Crohn's disease. Had excellent response to Humira, but was unable to tolerate. Will switch her to Remicade infusions. We discussed the indication and potential risks of biologic therapy including slightly elevated risk of infections such as respiratory infections, malignancy (skin, lymphoma), infusion reactions etc. We also reviewed that the risk of not proceeding with and had to TNF includes progression of Crohn's disease, which may then potentially become even more difficult to treat later on or lead to surgery. Plan: -prednisone 60 mg p.o. once daily x2 weeks followed by a taper -Remicade PA in process -hep serology and T spot negative -will need monitoring with labs as per protocol -given her bilateral lower back/hip pain, will check x-ray to rule out sacroiliitis Follow-up in 4 weeks Orders: Orders XR sacroiliac joint min 3V 08/08/23 M25.551 - Pain in right hip, M25.552 - Pain in left hip Medications: New prednisone Take 60 once a day for 2 weeks followed by a taper 60 mg (3 x 20 mg) PO DAILY 42 tabs 0RF 14 days prednisone After completing 60mg per day, take 50x7 days, 40x7 days, 30x7 days, 20x7 days and 10x7 days 10 mg PO DIRECTED 105 tabs 0RF Coding Level of Care Code Est Pt Level 5 (47099) Diagnoses Bilateral hip pain M25.551; M25.552 Crohn's disease K50.90 Abdominal pain R10.9 Diarrhea R19.7
[2023-08-08 11:21] VITALS: BP 129/70; PULSE 76; BMI 38.8
== END 2023-08-08 12:10 | disposition home or self-care (01) ==
PROVIDERS: PCP Internal Medicine; Visit Provider Internal Medicine
DX: K50.90 Crohn's disease, unspecified, without complications (principal); M25.551 Pain in right hip; M25.552 Pain in left hip
CPT/HCPCS: 99214

== ENCOUNTER → 2023-08-08 11:16 | Outpatient (BNVA) | payer BC, OTHER, SELFPAY | PROVIDERS: PCP Internal Medicine; Visit Provider Internal Medicine ==

== ENCOUNTER 2023-08-16 08:24 | Outpatient (REF) | payer BC, SELFPAY ==
[2023-08-16 10:00] LABS: Anion Gap 12 (12-20); Blood Urea Nitrogen 13 mg/dL (9-16); Calcium 9.3 mg/dL (8.4-10.2); Carbon Dioxide 25 mmol/L (22-29); Chloride 107 mmol/L (96-108); Estimated Glomerular Filt Rate > 60; Glucose Random 101 mg/dL (60-115); Potassium 4.3 mmol/L (3.3-5.1); Sodium 140 mmol/L (135-145)
== END 2023-08-16 08:25 | disposition home or self-care (01) ==
LOC: HO.LAB 08:24
PROVIDERS: Visit Provider Internal Medicine
DX: R10.9 Unspecified abdominal pain (principal)
CPT/HCPCS: 36415; 80048

== ENCOUNTER 2023-09-12 11:48 | Outpatient (AMB) | payer BC, SELFPAY ==
--- NOTE | 2023-09-12 11:56 | A.OFFVIS_ITS ---
Vital Signs 09/12/23 12:00 Height 5 ft 6 in Weight 242 lb BMI 39.1 BP 124/73 Blood Pressure Location Lt brachial Position Sitting Pulse 89 Intake Visit Reasons: 4 weeks 30 MINS Intake Note: Patient is seen in office for 4 wks follow up visit. Pt c/o: is scheduled for the IV therapy for this Wednesdays at noon, no longer on the prednisone. Mine Supervisor Required: No Accompanied by: Self / Same As Patient Allergies lactose [LACTOSE] Allergy (Unknown, Verified 09/12/23 11:59) GI UPSET latex Allergy (Unknown, Uncoded 09/12/23 11:59) unknown HPI Comments Details: 52y.o F with PMH of R sided renal cell ca s/p partial nephrectomy, bipolar II disorder, ADHD, obesity, ? hx of crohns disease who is here for second opinion. To recap, pt had a CT Abd/pel without contrast in 10/2021 which was ordered by Urology for lower back pain to r/o urinary obstruction from kidney stone. This showed wall thickening in T.I with prominent vasa recta and lymph nodes. Pt subsequently had blood and stool testing - fecal calopro 1200 with prometheus panel suggestive of IBD but inconclusive for Crohns vs UC. She was then started on budosenide followed by Humira. Humira was stopped in August after she developed generalised body swelling. She was then put on mesalamine and budesonide which she also stopped 3 weeks ago due to a URI. Pt has not had a diagnostic ileocolonoscopy for endoscopic/histologic confirmation of IBD. Last colo in 2015 (Dr Keyes) was fair prep without any mucosal abnormality. Currently, main sx are intermittent abd pain, and loose watery stools triggered by certain foods such as coffee, greasy food, dairy etc. Has 1 BM per day. No blood. No unintentional weight loss. Strong fam hx of IBD. 07/28/23 Impression: * Inlet patch * Normal stomach * Duodenitis (biopsy) * Terminal ileitis and patchy colitis with rectal sparing (biopsy) * Internal and external hemorrhoids Diagnosis A. Duodenum, biopsy: Small intestinal mucosa within normal limits. B. Esophagus, lower, biopsy: Squamous epithelium within normal limits; no inflammation seen. C. Esophagus, middle, biopsy: Squamous epithelium within normal limits; no inflammation seen. D. Terminal ileum, biopsy: Ileocolonic mucosa with surface hyperplastic changes. E. Ileocecal valve, biopsy: Colonic mucosa within normal limits. F. Cecum, biopsy: Colonic mucosa within normal limits. G. Colon, ascending, biopsy: Colonic mucosa within normal limits. H. Colon, transverse, biopsy: Focally active colitis. I. Colon, descending, biopsy: Focally active colitis. J. Colon, sigmoid, biopsy: Mildly active colitis. K. Rectum, biopsy: Rectal mucosa within normal limits. Comment: Fully developed chronic injury is not identified in any of the samples. No dysplasia is seen 08/08/23: Patient continues to report the runs specially after eating. No blood in stool. Patient also reports diffuse joint pains especially lower back pain. EGD and colonoscopy results reviewed with the patient, which are highly suggest cornelio of Crohn's disease in the current clinical context, although no chronic injury noted on histology. 09/12/23: Prednisone taper completed 09/04. No significant side effects. Noticed improvement in stool - formed, going 1/day. Sayda for infusions later this month however unsure of immunization status - see below. [facility] Medical History (Updated 08/08/23 @ 11:39 by Masha Mcfadden MD) Generalized anxiety disorder Bipolar II disorder with rapid cycling ADHD (attention deficit hyperactivity disorder) Cyclothymia Inflammatory bowel disease History of kidney cancer Dyspepsia Asthma, exercise induced Lipid disorder Bipolar 1 disorder Family history of coronary artery disease Surgical History History of esophagogastroduodenoscopy (EGD) H/O colonoscopy Hx of elbow surgery H/O right nephrectomy Status post breast reduction History of endometrial ablation History of bunionectomy History of tubal ligation History of section Family History Father HTN (hypertension) High cholesterol Colon polyp History of open heart surgery Mother High cholesterol CVD (cardiovascular disease) H/O: hysterectomy Non-Hodgkin lymphoma Maternal Grandfather HTN (hypertension) Myocardial infarction CVD (cardiovascular disease) Maternal Grandmother CVD (cardiovascular disease) HTN (hypertension) Myocardial infarction Breast cancer, Onset Age: 45 Paternal Grandfather Diabetes mellitus Throat cancer Paternal Grandmother Breast cancer Bone cancer Brother No problems noted. Sister Bone cancer HTN (hypertension) Ovarian cancer Non-Hodgkin lymphoma Daughter No problems noted. Daughter No problems noted. Maternal Aunt Breast cancer, Onset Age: 44 Maternal Aunt CVD (cardiovascular disease) Sister Follicular lymphoma Paternal Grandmother Breast cancer Other Mental health disorder Substance use disorder Social History Housing: House Comment: medicated with Tylenol 975 mg PO at 1312 Patient Tobacco Use Status: Former Tobacco user Tobacco use type: Cigarette e-Cigarette/Vaping Use: Never Used service: No Current occupational status: employed Current occupation: [employer] / [employer] Cognitive needs: No Hearing needs: No Vision needs: No Female Reproductive History Menstrual Age of Menarche: 16 Review of Systems Const All systems reviewed & are unremarkable except as noted in HPI and below Physical Exam Vital Signs: Last Vital Signs Pulse 89 09/12/23 12:00 BP 124/73 09/12/23 12:00 BMI result Body Mass Index 39.1 No apparent distress Nonicteric Abdomen soft, nondistended Alert and oriented x3, normal gait Assessment & Plan Assessment & Plan (1) Crohn's disease: Code(s): K50.90 - Crohn's disease, unspecified, without complications Category: Medical (2) Bilateral hip pain: Code(s): M25.551 - Pain in right hip; M25.552 - Pain in left hip Category: Medical (3) Abdominal pain: Code(s): R10.9 - Unspecified abdominal pain Category: Medical (4) Diarrhea: Code(s): R19.7 - Diarrhea, unspecified Category: Medical Plan Discussed with the patient, that although no definitive chronic injury noted on histology to suggest inflammatory bowel disease, in the overall clinical context of longstanding abdominal pain with diarrhea, imaging findings, elevated fecal calprotectin, and previous prompt response of GI symptoms to steroid therapy, she most likely has Crohn's disease. Had excellent response to Humira, but was unable to tolerate. Inflectra approved by insurance and first infusion booked for later this month. Pt is aware to be up to date on vaccines at least 2-4 weeks PRIOR to starting inflectra and to AVOID live vaccines. We discussed the indication and potential risks of biologic therapy including slightly elevated risk of infections such as respiratory infections, malignancy (skin, lymphoma), infusion reactions etc. We also reviewed that the risk of not proceeding with and had to TNF includes progression of Crohn's disease, which may then potentially become even more difficult to treat later on or lead to surgery. Disease and monitoring: Active * Infliximab-dyyb induction to start later this month * Check drug and Ab level per TDM protocol before 1st maintenance dose * Will also get CRP and fecal calpro at that time * Not immune to HAV and HBV and twinrix recommended prior to starting inflectra. Pt will also reach out to her PCP for remaining immunization record. Nutrition: * Iron studies, B12 and folate ordered Bone Health: * Check Vit D. Consider dexa scan at next visit cheikh if Vit D low. Health maintenance: * IBD dysplasia screening: N/A * Mammo: uptodate * Pap: uptodate * Sun safety: reviewed Follow-up in 4 months Orders: Orders Complete Blood Count no Diff 3 Months K50.90 - Crohn's disease, unspecified, without complications Comprehensive Met. Panel 3 Months K50.90 - Crohn's disease, unspecified, without complications IRON PROFILE 3 Months K50.90 - Crohn's disease, unspecified, without complications Vitamin B12 and Folate 3 Months K50.90 - Crohn's disease, unspecified, without complications Calprotectin, Fecal 3 Months K50.90 - Crohn's disease, unspecified, without complications Ferritin 3 Months K50.90 - Crohn's disease, unspecified, without complications Vitamin D 25-OH Total 3 Months K50.90 - Crohn's disease, unspecified, without complications C Reactive Protein 3 Months K50.90 - Crohn's disease, unspecified, without complications Prometheus ANSER IFX 3 Months K50.90 - Crohn's disease, unspecified, without complications Coding Level of Care Code Est Pt Level 5 (78832) Diagnoses Crohn's disease K50.90 Bilateral hip pain M25.551; M25.552 Abdominal pain R10.9 Diarrhea R19.7
[2023-09-12 12:00] VITALS: BP 124/73; PULSE 89; BMI 39.1
== END 2023-09-12 12:35 | disposition home or self-care (01) ==
PROVIDERS: PCP Internal Medicine; Visit Provider Internal Medicine
DX: K50.90 Crohn's disease, unspecified, without complications (principal); M25.551 Pain in right hip; R10.9 Unspecified abdominal pain
CPT/HCPCS: 99214

== ENCOUNTER → 2023-09-12 11:48 | Outpatient (BNVA) | payer BC, SELFPAY | PROVIDERS: PCP Internal Medicine; Visit Provider Internal Medicine ==

== ENCOUNTER 2023-10-04 14:31 | Outpatient (REF) | payer BC, SELFPAY ==
--- NOTE | ~2023-10-04 | CT_ITS ---
EXAMINATION: CT ENTEROGRAPHY ABDOMEN AND PELVIS WITH CONTRAST CLINICAL INFORMATION: History of Crohn's disease. Ileal stricture. COMPARISON: 12/11/2015 TECHNIQUE: Study performed with oral VoLumen (1350 mL) and 480 mL of water to distend the abdomen. The patient was injected with 85 mL Omnipaque 350 intravenous contrast which was administered without adverse effect. Coronal and sagittal reformatted images were obtained at the technologist's workstation. This CT examination was performed using dose optimization techniques as appropriate, variously including the following: *Automated exposure control *Adjustment of mA and/or kV according to patient size (this includes techniques or standardized protocols for targeted exams where dose is matched to indication/reason for exam; i.e. extremities or head) *Use of iterative reconstruction technique DLP: 726 mGy-cm FINDINGS: GASTROINTESTINAL FINDINGS: Stomach: Satisfactorily distended and unremarkable. Small intestine: There is wall thickening and mucosal hyperenhancement involving the mid to distal ileum and terminal ileum with luminal narrowing. There are associated pseudosacculations within the area of active inflammation. Large intestine: Wall thickening of the proximal to mid sigmoid colon. No pericolonic inflammatory changes. No perirectal changes. Moderate fecal retention in the colon. Appendix is within normal limits. Additional findings: There is engorgement of the mesenteric vasculature. There are numerous subcentimeter mesenteric lymph nodes. No abdominal abscess or fistulous tract demonstrated. ABDOMINAL AND PELVIC CT FINDINGS: Liver, gallbladder, biliary tract: The liver is decreased in attenuation. No suspicious hepatic lesion. No biliary ductal dilatation. The gallbladder is contracted. Pancreas: No ductal dilatation. Spleen: Not enlarged. Adrenal glands and kidneys: No adrenal mass. The kidneys are lobulated in contour with symmetric enhancement. No hydronephrosis or perinephric fluid collection. No suspicious renal mass. Ureters and bladder: Unremarkable. Vascular structures: Normal caliber abdominal aorta.. Retroaortic left renal vein. Pelvic viscera: Uterus and adnexa are within normal limits. Bones: No destructive bone lesions. Lung bases: Unremarkable. CT/CT enterography IMPRESSION: Redemonstrated is a long segment of active inflammation/active disease of the distal ileum and terminal ileum with wall thickening, luminal narrowing and mucosal hyperenhancement. There are associated pseudosacculations and numerous subcentimeter mesenteric lymph nodes. The appearance most likely represents active Crohn's disease. Nonspecific wall thickening involving the proximal to mid sigmoid colon without pericolonic inflammatory changes.
[2023-10-04] MEDS: iohexoL 350 MG/ML 100 ML INFUS..BTL 85 ML IV (15:59)
[2023-10-04] MEDS: Sorbitol/Mannit/Xanth Imaging 500 ML LIQUID 1500 ML PO (15:59)
[2023-10-05 06:36] LABS: Creatinine POC 0.8 mg/dL (0.5-1.4); GFR POC 60
== END 2023-10-04 14:32 | disposition home or self-care (01) ==
LOC: HO.CT 14:31
PROVIDERS: PCP Internal Medicine; Visit Provider Internal Medicine
DX: K50.90 Crohn's disease, unspecified, without complications (principal)
CPT/HCPCS: 74177; 82565; Q9967

== ENCOUNTER 2023-10-05 11:04 | Outpatient (AMB) | payer BC, SELFPAY ==
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
== END 2023-10-05 13:33 | disposition home or self-care (01) ==
LOC: HO.HOP 11:04
PROVIDERS: PCP Internal Medicine; Visit Provider Psychiatry & Neurology Psychiatry
DX: F41.1 Generalized anxiety disorder (principal); F90.9 Attention-deficit hyperactivity disorder, unspecified type; F34.0 Cyclothymic disorder
CPT/HCPCS: 90833; 99213

== ENCOUNTER → 2023-10-05 11:04 | Outpatient (BNVA) | payer BC, SELFPAY | PROVIDERS: PCP Internal Medicine; Visit Provider Psychiatry & Neurology Psychiatry ==

== ENCOUNTER 2023-11-07 07:28 | Outpatient (REF) | payer BC, MEDICAID, SELFPAY ==
--- NOTE | ~2023-11-07 | MM_ITS ---
EXAMINATION: MM SCREENING DIGITAL BREAST TOMOSYNTHESIS, BILATERAL CLINICAL INFORMATION: Screening. Asymptomatic. COMPARISON: Mammography: This study is compared with prior exams dating back to 2019. TECHNIQUE: Digital breast tomosynthesis is performed in both the craniocaudal and mediolateral oblique views along with computer-aided detection (CAD). Synthesized 2D images are generated from the tomosynthesis. FINDINGS: There are scattered areas of fibroglandular density (ACR BI-RADS breast composition Category b). There are no significant masses, abnormal calcifications, or other abnormalities. Post reduction changes are present in each breast. MM/MM tomosynthesis screening BI IMPRESSION: No mammographic evidence of malignancy. ASSESSMENT: BI-RADS BI-RADS 2 - Benign Findings RECOMMENDATION: Routine annual mammography screening. 1 year F/U This examination should not preclude the clinical evaluation of a suspicious palpable abnormality. This patient's information was entered into a reminder system with a target due date for their next mammogram.
== END 2023-11-07 07:29 | disposition home or self-care (01) ==
LOC: HO.MAMMO 07:28
PROVIDERS: PCP Internal Medicine; Visit Provider Internal Medicine
DX: Z12.31 Encounter for screening mammogram for malignant neoplasm of breast (principal)
CPT/HCPCS: 77063; 77067

== ENCOUNTER → 2023-11-07 07:30 | Outpatient (BNV) | payer BC, MEDICAID, SELFPAY | PROVIDERS: PCP Internal Medicine; Visit Provider Radiology Diagnostic Radiology | DX: Z12.31 Encounter for screening mammogram for malignant neoplasm of breast (principal) | CPT/HCPCS: 77063; 77067 ==

== ENCOUNTER 2023-12-08 06:34 | Outpatient (REF) | payer BC, SELFPAY ==
[2023-12-08 07:06] LABS: Hematocrit 40.3 % (37.0-47.0); Hemoglobin 13.6 g/dl (12.0-16.0); Mean Corpuscular HGB Conc 33.7 g/dl (31.0-35.0); Mean Corpuscular Hemoglobin 27.8 pg (27.0-33.0); Mean Corpuscular Volume 82.2 fL (80.0-98.0); Mean Platelet Volume 10.2 fL (9.4-12.3); Platelet Count 344 X10*3/uL (160-400); Red Cell Distribution Width 13.1 % (11.0-16.0); White Blood Count 5.5 X10*3/uL (4.8-10.8)
[2023-12-08 07:49] LABS: Alanine Aminotransferase 48 U/L (0-31); Albumin Level 4.2 g/dL (3.5-5.0); Alkaline Phosphatase 64 U/L (39-117); Anion Gap 13 (12-20); Aspartate Amino Transferase 30 U/L (5-31); Bilirubin Total 0.4 mg/dL (0.0-1.0); Blood Urea Nitrogen 9 mg/dL (9-16); C Reactive Protein 0.38 mg/dL (< or = 0.50); Calcium 9.4 mg/dL (8.4-10.2); Carbon Dioxide 25 mmol/L (22-29); Chloride 107 mmol/L (96-108); Estimated Glomerular Filt Rate > 60; Glucose Random 102 mg/dL (60-115); Iron 57 mcg/dL (30-160); Percent Iron Saturation 21 % (15-50); Potassium 3.7 mmol/L (3.3-5.1); Sodium 141 mmol/L (135-145); Total Iron Binding Capacity 275 mcg/dL (228-428); Unsaturated Iron Binding 218 ug/dL
[2023-12-08 08:06] LABS: Ferritin 69 ng/mL (10-250); Vitamin D 25-OH Total 22.2 ng/mL (>30)
[2023-12-08 08:19] LABS: Folate 6.3 ng/mL (> or = 4.0); Vitamin B12 321 pg/mL (200-900)
[2023-12-16 19:08] LABS: Calprotectin, Fecal 307 mcg/g
== END 2023-12-08 06:35 | disposition home or self-care (01) ==
LOC: HO.LAB 06:34
PROVIDERS: PCP Internal Medicine; Visit Provider Internal Medicine
DX: K50.90 Crohn's disease, unspecified, without complications (principal)
CPT/HCPCS: 36415; 80053; 80230; 82306; 82542; 82607; 82728; 82746; 83540; 83993; 85027; 86140

== ENCOUNTER 2024-02-15 11:21 | Outpatient (AMB) | payer BC, SELFPAY ==
--- NOTE | 2024-02-15 11:26 | A.OFFVIS_ITS ---
Vital Signs 02/15/24 11:28 Height 5 ft 6 in Weight 235 lb 14.314 oz BMI 38.1 BP 121/81 Blood Pressure Location Lt brachial Position Sitting Pulse 99 Intake Visit Reasons: 4 month follow up Intake Note: Shayy presents in the office as a 4 month follow up. CC: states her last remicade was on a tuesday and she said by tuesday she had diarrhea. She has been having sharp pains in the lower left quadrant that are happening right now. She states that it feels like a bubble and she states that she is knowing she is going to have diarrhea later. Allergies lactose [LACTOSE] Allergy (Unknown, Verified 02/15/24 11:28) GI UPSET latex Allergy (Unknown, Uncoded 02/15/24 11:28) unknown HPI Comments Details: 52y.o F with PMH of R sided renal cell ca s/p partial nephrectomy, bipolar II disorder, ADHD, obesity, hx of crohns disease who is here for second opinion. To recap, pt had a CT Abd/pel without contrast in 10/2021 which was ordered by Urology for lower back pain to r/o urinary obstruction from kidney stone. This showed wall thickening in T.I with prominent vasa recta and lymph nodes. Pt subsequently had blood and stool testing - fecal calopro 1200 with prometheus panel suggestive of IBD but inconclusive for Crohns vs UC. She was then started on budosenide followed by Humira. Humira was stopped in August after she developed generalised body swelling. She was then put on mesalamine and budesonide which she also stopped 3 weeks ago due to a URI. Pt has not had a diagnostic ileocolonoscopy for endoscopic/histologic confirmation of IBD. Last colo in 2015 (Dr Kyees) was fair prep without any mucosal abnormality. Currently, main sx are intermittent abd pain, and loose watery stools triggered by certain foods such as coffee, greasy food, dairy etc. Has 1 BM per day. No blood. No unintentional weight loss. Strong fam hx of IBD. 07/28/23 Impression: * Inlet patch * Normal stomach * Duodenitis (biopsy) * Terminal ileitis and patchy colitis with rectal sparing (biopsy) * Internal and external hemorrhoids Diagnosis A. Duodenum, biopsy: Small intestinal mucosa within normal limits. B. Esophagus, lower, biopsy: Squamous epithelium within normal limits; no inflammation seen. C. Esophagus, middle, biopsy: Squamous epithelium within normal limits; no inflammation seen. D. Terminal ileum, biopsy: Ileocolonic mucosa with surface hyperplastic changes. E. Ileocecal valve, biopsy: Colonic mucosa within normal limits. F. Cecum, biopsy: Colonic mucosa within normal limits. G. Colon, ascending, biopsy: Colonic mucosa within normal limits. H. Colon, transverse, biopsy: Focally active colitis. I. Colon, descending, biopsy: Focally active colitis. J. Colon, sigmoid, biopsy: Mildly active colitis. K. Rectum, biopsy: Rectal mucosa within normal limits. Comment: Fully developed chronic injury is not identified in any of the samples. No dysplasia is seen 08/08/23: Patient continues to report the runs specially after eating. No blood in stool. Patient also reports diffuse joint pains especially lower back pain. EGD and colonoscopy results reviewed with the patient, which are highly suggestive of Crohn's disease in the current clinical context, although no chronic injury noted on histology. 09/12/23: Prednisone taper completed 09/04. No significant side effects. Noticed improvement in stool - formed, going 1/day. Sayda for infusions later this month however unsure of immunization status - see below. 02/15/24: Seen in follow up. Had a short period of time with improvement in sx during induction period. However, for the past couple of months having recurrence of lower abd pain and diarrhea with urgency cheikh post prandially. Labs reviewed with the pt. Has low IFX levels with low levels of Ab formation. OF NOTE PT REPORTS GETTING REMICADE LAST TIME ON 02/06/24 DESPITE ORDERS FOR INFLECTRA. RELEVANT PHARMACY STAFF HAS BEEN ALERTED RE THIS ERROR. [facility]LY [facility], [facility] Medical History (Updated 02/15/24 @ 11:48 by Masha Mcfadden MD) Generalized anxiety disorder Bipolar II disorder with rapid cycling ADHD (attention deficit hyperactivity disorder) Cyclothymia Inflammatory bowel disease History of kidney cancer Dyspepsia Asthma, exercise induced Lipid disorder Bipolar 1 disorder Family history of coronary artery disease Surgical History History of esophagogastroduodenoscopy (EGD) H/O colonoscopy Hx of elbow surgery H/O right nephrectomy Status post breast reduction History of endometrial ablation History of bunionectomy History of tubal ligation History of section Family History Father HTN (hypertension) High cholesterol Colon polyp History of open heart surgery Mother High cholesterol CVD (cardiovascular disease) H/O: hysterectomy Non-Hodgkin lymphoma Maternal Grandfather HTN (hypertension) Myocardial infarction CVD (cardiovascular disease) Maternal Grandmother CVD (cardiovascular disease) HTN (hypertension) Myocardial infarction Breast cancer, Onset Age: 45 Paternal Grandfather Diabetes mellitus Throat cancer Paternal Grandmother Breast cancer Bone cancer Brother No problems noted. Sister Bone cancer HTN (hypertension) Ovarian cancer Non-Hodgkin lymphoma Daughter No problems noted. Daughter No problems noted. Maternal Aunt Breast cancer, Onset Age: 44 Maternal Aunt CVD (cardiovascular disease) Sister Follicular lymphoma Paternal Grandmother Breast cancer Other Mental health disorder Substance use disorder Social History Housing: House Comment: medicated with Tylenol 975 mg PO at 1312 Patient Tobacco Use Status: Former Tobacco user Tobacco use type: Cigarette e-Cigarette/Vaping Use: Never Used service: No Current occupational status: employed Current occupation: [employer] Cognitive needs: No Hearing needs: No Vision needs: No Female Reproductive History Menstrual Age of Menarche: 16 Review of Systems Const All systems reviewed & are unremarkable except as noted in HPI and below Physical Exam Vital Signs: Last Vital Signs Pulse 99 02/15/24 11:28 BP 121/81 02/15/24 11:28 BMI result Body Mass Index 38.1 No apparent distress Nonicteric Abdomen soft, nondistended Alert and oriented x3, normal gait Assessment & Plan Assessment & Plan (1) Crohn's disease: Code(s): K50.90 - Crohn's disease, unspecified, without complications Category: Medical (2) Bilateral hip pain: Code(s): M25.551 - Pain in right hip; M25.552 - Pain in left hip Category: Medical (3) Abdominal pain: Code(s): R10.9 - Unspecified abdominal pain Category: Medical (4) Diarrhea: Code(s): R19.7 - Diarrhea, unspecified Category: Medical Plan Discussed with the patient, that although no definitive chronic injury noted on histology to suggest inflammatory bowel disease, in the overall clinical context of longstanding abdominal pain with diarrhea, imaging findings, elevated fecal calprotectin, and previous prompt response of GI symptoms to steroid therapy, she most likely has Crohn's disease. Had excellent response to Humira, but was unable to tolerate. Inflectra approved by insurance and first infusion booked for later this month. Pt is aware to be up to date on vaccines at least 2-4 weeks PRIOR to starting inflectra and to AVOID live vaccines. We discussed the indication and potential risks of biologic therapy including slightly elevated risk of infections such as respiratory infections, malignancy (skin, lymphoma), infusion reactions etc. We also reviewed that the risk of not proceeding with and had to TNF includes progression of Crohn's disease, which may then potentially become even more difficult to treat later on or lead to surgery. Here for follow up. Had first maintenance dose last week. See above re inflectra/remicade error. Drug and Ab levels as above. Reviewed with the pt that will attempt to overcome this by escalating the dose and switching to combo therapy with imuran. If continues to have ATI, with low IFX levels, will likely need to switch out of class. Disease and monitoring: Active * Increase Infliximab-dyyb to 10mg/kg IV - first dose to be given 03/05 - i.e 4 weeks after previous dose * Start Azathioprine 50 mg once daily * CBC and LFTs to be checked in 2 weeks * Check IFX drug and Ab level before 2nd 10mg/kg dose Nutrition: * Iron studies, B12 and folate normal Bone Health: * Low Vit D previously and was supplemented. Recheck Vit D. Dexa scan ordered. Health maintenance: * IBD dysplasia screening: N/A * Mammo: uptodate * Pap: uptodate * Sun safety: reviewed #SAHWN Pt also reports mild SHAWN bilaterally. Echo and LFTs normal. Will check UA. #Obesity Pt also interested in Ozempic. Will check A1c and if diabetic, will refer to Endo for further eval and management. Follow-up in 3 months Orders: Orders XR DEXA axial skeleton Today E55.9 - Vitamin D deficiency, unspecified, K50.90 - Crohn's disease, unspecified, without complications UA and rflx microscopic Today R60.0 - Localized edema Vitamin D 1,25 dihydroxy Today E55.9 - Vitamin D deficiency, unspecified Complete Blood Count no Diff 2 Weeks K50.90 - Crohn's disease, unspecified, without complications Hemoglobin A1c Today K50.90 - Crohn's disease, unspecified, without complications Liver Panel 2 Weeks K50.90 - Crohn's disease, unspecified, without complications Medications: New azathioprine (Imuran) 50 mg PO DAILY 90 tabs 1RF Refilled guanfacine 1 mg PO TID 90 tabs 2RF Coding Level of Care Code Est Pt Level 4 (31440) Diagnoses Crohn's disease K50.90 Bilateral hip pain M25.551; M25.552 Abdominal pain R10.9 Diarrhea R19.7
[2024-02-15 11:28] VITALS: BP 121/81; PULSE 99; BMI 38.1
== END 2024-02-15 12:35 | disposition home or self-care (01) ==
PROVIDERS: PCP Internal Medicine; Visit Provider Internal Medicine
DX: K50.90 Crohn's disease, unspecified, without complications (principal); M25.551 Pain in right hip; M25.552 Pain in left hip; R10.9 Unspecified abdominal pain; R19.7 Diarrhea, unspecified
CPT/HCPCS: 99214

== ENCOUNTER → 2024-02-15 11:21 | Outpatient (BNVA) | payer BC, SELFPAY | PROVIDERS: PCP Internal Medicine; Visit Provider Internal Medicine ==

== ENCOUNTER 2024-02-29 10:13 | Outpatient (REF) | payer BC, SELFPAY ==
[2024-02-29 16:11] LABS: Hematocrit 41.3 % (37.0-47.0); Hemoglobin 13.9 g/dl (12.0-16.0); Mean Corpuscular HGB Conc 33.7 g/dl (31.0-35.0); Mean Corpuscular Hemoglobin 28.1 pg (27.0-33.0); Mean Corpuscular Volume 83.6 fL (80.0-98.0); Mean Platelet Volume 10.6 fL (9.4-12.3); Platelet Count 337 X10*3/uL (160-400); Red Blood Count 4.94 X10*6/uL (4.20-5.50); Red Cell Distribution Width 13.2 % (11.0-16.0); White Blood Count 5.9 X10*3/uL (4.8-10.8)
[2024-02-29 17:00] LABS: Alanine Aminotransferase 48 U/L (0-31); Albumin Level 4.2 g/dL (3.5-5.0); Alkaline Phosphatase 71 U/L (39-117); Aspartate Amino Transferase 30 U/L (5-31); Bilirubin Direct 0.1 mg/dL (0.0-0.5); Bilirubin Total 0.4 mg/dL (0.0-1.0); Total Protein 7.2 g/dL (6.5-8.0)
[2024-02-29 17:48] LABS: Estimated Average Glucose 111 mg/dL; Hemoglobin A1C 130.2754 umol/L; Hemoglobin A1c % 5.5 % (<6.0); Total Hemoglobin (HGBA1C) 3517.1452 umol/L
[2024-03-06 01:28] LABS: VITAMIN D (1,25 OH) D3 57 pg/mL; Vit D (1,25-Dihydroxy) Total 57 pg/mL (18-72); Vitamin D (1,25 OH) D2 <8 pg/mL
== END 2024-02-29 10:14 | disposition home or self-care (01) ==
LOC: HO.LAB 10:13
PROVIDERS: PCP Internal Medicine; Visit Provider Internal Medicine
DX: K50.90 Crohn's disease, unspecified, without complications (principal); E55.9 Vitamin D deficiency, unspecified; Z13.1 Encounter for screening for diabetes mellitus
CPT/HCPCS: 36415; 80076; 82652; 83036; 85027

== ENCOUNTER 2024-03-08 08:12 | Outpatient (REF) | payer BC, SELFPAY ==
--- NOTE | ~2024-03-08 | MM_ITS ---
EXAMINATION: BONE DENSITOMETRY CLINICAL INDICATION: Vitamin D deficiency, unspecified. COMPARISON: This is the patient's baseline examination. TECHNIQUE: Using a [employer] DXA System (software version: 13.1) manufactured by [employer], dual-energy x-ray absorptiometry was performed of the lumbar spine and left hip. The images are of good technical quality. Summary results are attached. FINDINGS: LEFT FEMUR, NECK: BMD 1.031 g/cm2, Z-score 0.1, T-score -0.1, normal. LEFT FEMUR, TOTAL: BMD 1.085 g/cm2, Z-score 0.3, T-score 0.6, normal. AP SPINE L1-L4: BMD 1.261 g/cm2, Z-score 0.1, T-score 0.7, normal. IDENTIFIED RISK FACTORS: Menopause, secondary osteoporosis (intestinal or bowel disease, not IBS). HISTORY OF FRACTURE: None listed. MEDICATIONS: Vitamin D. MM/XR DEXA axial skeleton IMPRESSION: 1. DIAGNOSIS: Normal bone density based on the lowest T-score value of -0.1 in the femoral neck applying World Health Organization criteria. 2. 10-YEAR FRACTURE RISK PREDICTION, FRAX: According to the guidelines, FRAX calculation should only be performed on patients in the osteopenia bone density category. Therefore, FRAX was not performed on this patient. 3. Treatment Recommendations: NOF guidelines recommend consideration for treatment in postmenopausal women and men age 50 and older presenting with the following: -A hip or vertebral (clinical or morphometric) fracture. -T-score less than or equal to -2.5 at the femoral neck or spine after appropriate evaluation to exclude secondary causes. -Low bone mass at the hip or spine and a 10-year fracture probability by FRAX of greater than or equal to 3% for hip fracture or greater than or equal to 20% for major osteoporotic fracture based on the [place] adapted WHO algorithm. 4. Other Recommendations: All treatment decisions require clinical judgment and consideration of individual patient factors, including patient preferences, comorbidities, previous drug use, risk factors not captured in the FRAX model (e.g. frailty, falls, vitamin D deficiency, increased bone turnover, interval significant decline in bone density) and possible under or overestimation of fracture risk by FRAX. FUTURE SCAN RECOMMENDATION: People with diagnosed cases of osteoporosis or at high risk for fracture should have regular bone mineral density tests. For patients eligible for Medicare, routine testing is allowed once every 2 years. The testing frequency can be increased to one year for patients who have rapidly progressing disease, those who are receiving or discontinuing medical therapy to restore bone mass, or have additional risk factors. Electronically signed by: Mario Alberto Flynn MD 03/08/2024 10:18 AM [facility]
== END 2024-03-08 08:13 | disposition home or self-care (01) ==
LOC: HO.MAMMO 08:12
PROVIDERS: PCP Internal Medicine; Visit Provider Internal Medicine
DX: E55.9 Vitamin D deficiency, unspecified (principal); K50.90 Crohn's disease, unspecified, without complications; Z78.0 Asymptomatic menopausal state
CPT/HCPCS: 77080

== ENCOUNTER 2024-04-04 10:57 | Outpatient (REF) | payer BC, SELFPAY ==
[2024-04-04 11:31] LABS: Hematocrit 41.7 % (37.0-47.0); Hemoglobin 14.3 g/dl (12.0-16.0); Mean Corpuscular HGB Conc 34.3 g/dl (31.0-35.0); Mean Corpuscular Volume 81.8 fL (80.0-98.0); Mean Platelet Volume 10.4 fL (9.4-12.3); Platelet Count 287 X10*3/uL (160-400); Red Cell Distribution Width 12.8 % (11.0-16.0); White Blood Count 5.1 X10*3/uL (4.8-10.8)
[2024-04-04 12:02] LABS: Alanine Aminotransferase 66 U/L (0-31); Albumin Level 4.2 g/dL (3.5-5.0); Alkaline Phosphatase 64 U/L (39-117); Aspartate Amino Transferase 46 U/L (5-31); Bilirubin Direct 0.2 mg/dL (0.0-0.5); Bilirubin Total 0.6 mg/dL (0.0-1.0); Total Protein 7.4 g/dL (6.5-8.0)
== END 2024-04-04 10:58 | disposition home or self-care (01) ==
LOC: HO.LAB 10:57
PROVIDERS: PCP Internal Medicine; Visit Provider Internal Medicine
DX: K50.90 Crohn's disease, unspecified, without complications (principal)
CPT/HCPCS: 36415; 80076; 85027

== ENCOUNTER 2024-04-05 08:06 | Outpatient (REF) | payer BC, SELFPAY ==
[2024-04-05 08:17] LABS: Appearance Urine Clear; Color Urine Yellow; Glucose Urine UA Negative (Negative); Leukocyte Esterase Urine Small (1+) (Negative); Nitrite Urine Negative (Negative); UMIC TRIGGER UA YES; Urine Blood Negative (Negative); Urine Ketones Negative (Negative); Urine Protein Negative (Neg-Trace)
[2024-04-05 08:24] LABS: Bacteria Urine None Seen (None Seen); Hyaline Casts Urine 0-2 /LPF (0-2); RBC Urine 0-2 /HPF (0-2); Squamous Epithelial Cell Urine 0-2 /HPF (0-2); WBC Urine 0-5 /HPF (0-5)
== END 2024-04-05 08:07 | disposition home or self-care (01) ==
LOC: HO.LNP 08:06
PROVIDERS: Visit Provider Internal Medicine
DX: R60.0 Localized edema (principal)
CPT/HCPCS: 81001

== ENCOUNTER 2024-04-10 08:58 | Outpatient (AMB) | payer BC, SELFPAY ==
--- NOTE | 2024-04-10 09:54 | MHC.OFFWIV ---
Intake Vital Signs 04/10/24 09:56 Weight 241 lb BP 118/72 Blood Pressure Location Lt brachial Position Sitting Pulse 91 Pulse Source Pulse Oximeter Temp 97.3 F Temp Source Oral Pulse Oximetry (%) 97 Oxygen Delivery Method Room Air Intake Visit Reasons: EP ?Bronchitis Intake Note: Patient here for cough, green phlegm that has been present for since mar 19. Patient Tobacco Use Status: Former Tobacco user Allergies lactose [LACTOSE] Allergy (Unknown, Verified 04/10/24 09:58) GI UPSET latex Allergy (Unknown, Uncoded 04/10/24 09:58) unknown Do you need a note to return to daycare/school/sports/work: No HPI HPI Comments History of Present Illness Details This is a 53-year-old female with a past medical history of Crohn's disease and depression presenting for evaluation of sinus pressure, laryngitis and cough that she has had since March 19. Patient states that she did have fevers and chills earlier however has not had any over the past 1 week. Patient is not taking any medication other than Tylenol for relief of her symptoms. She denies having any chest pain, sore throat, hemoptysis, nausea, vomiting, abdominal pain or back pain. [facility] Medical History (Updated 04/10/24 @ 10:26 by Leigh Ann Ortega PA-C) Generalized anxiety disorder Bipolar II disorder with rapid cycling ADHD (attention deficit hyperactivity disorder) Cyclothymia Inflammatory bowel disease History of kidney cancer Dyspepsia Asthma, exercise induced Lipid disorder Bipolar 1 disorder Family history of coronary artery disease Surgical History History of esophagogastroduodenoscopy (EGD) H/O colonoscopy Hx of elbow surgery H/O right nephrectomy Status post breast reduction History of endometrial ablation History of bunionectomy History of tubal ligation History of section Family History Father HTN (hypertension) High cholesterol Colon polyp History of open heart surgery Mother High cholesterol CVD (cardiovascular disease) H/O: hysterectomy Non-Hodgkin lymphoma Maternal Grandfather HTN (hypertension) Myocardial infarction CVD (cardiovascular disease) Maternal Grandmother CVD (cardiovascular disease) HTN (hypertension) Myocardial infarction Breast cancer, Onset Age: 45 Paternal Grandfather Diabetes mellitus Throat cancer Paternal Grandmother Breast cancer Bone cancer Brother No problems noted. Sister Bone cancer HTN (hypertension) Ovarian cancer Non-Hodgkin lymphoma Daughter No problems noted. Daughter No problems noted. Maternal Aunt Breast cancer, Onset Age: 44 Maternal Aunt CVD (cardiovascular disease) Sister Follicular lymphoma Paternal Grandmother Breast cancer Other Mental health disorder Substance use disorder Social History Housing: House Comment: medicated with Tylenol 975 mg PO at 1312 Patient Tobacco Use Status: Former Tobacco user Tobacco use type: Cigarette e-Cigarette/Vaping Use: Never Used service: No Current occupational status: employed Current occupation: [employer] Cognitive needs: No Hearing needs: No Vision needs: No Female Reproductive History Menstrual Age of Menarche: 16 Review of Systems Const All systems reviewed & are unremarkable except as noted in HPI and below Denies chills and Denies fever(s) Eyes Reports no additional complaints ENT Reports no additional complaints, Reports otalgia, Denies nasal discharge, Reports sinus pressure and Denies sore throat Card Denies chest pain and Denies dyspnea Resp Reports cough, Denies hemoptysis, Denies pain with cough, Denies dyspnea and Denies wheezing GI Reports no additional complaints Reports no additional complaints Musc Reports no additional complaints Skin/Breast Reports system reviewed and no additional complaints, except as documented Neuro Reports no additional complaints Psych Reports no additional complaints Endo Reports no additional complaints Vin/Lymph Reports no additional complaints Aller/Immun Reports no additional complaints and Denies wheezing Physical Exam Vital Signs: Last Vital Signs Temp 97.3 F 04/10/24 09:56 Pulse 91 04/10/24 09:56 BP 118/72 04/10/24 09:56 Pulse Ox 97 04/10/24 09:56 Oxygen Delivery Method Room Air 04/10/24 09:56 Patient is afebrile. Const General: cooperative, healthy appearing, comfortable, no acute distress, well developed, alert, awake and Physically active; No lethargic Nutritional Appearance: average body habitus and well nourished Orientation/consciousness: patient oriented x3 and No lethargic Limitations: no limitations HEENT Head: Yes normal to inspection and Yes normocephalic Ears: hearing grossly normal bilaterally, external ears normal, TM's abnormal bilaterally (TMs bulging bilaterally, erythematous right TM with minimal fluid level), EAC's normal and mastoids normal General nose exam: Normal external nose present Face and sinus: Yes normal facial exam and Yes sinus tenderness Mouth: Normal oral and palatal mucosa present and moist mucous membranes Teeth and gingiva: dentition normal Throat: Yes posterior oropharynx normal Eyes General: appearance normal, both eyes and all related structures Conjunctivae: conjunctivae normal Pupils: Equal, round and reactive pupils present EOM: EOMs intact bilaterally Neck Lymphatic: lymphadenopathy anterior cervical soft and rubbery Resp Effort & Inspection: normal respiratory effort, able to speak in complete sentences, Actively coughing, no nasal flaring, no respiratory distress and no use of accessory muscles Cardio Rate: regular rate Rhythm: regular rhythm Neuro General: patient oriented x3 Cranial nerves: Yes Equal, round and reactive pupils present Extrem General: Yes normal to inspection Psych Appearance: grossly normal Mental Status: mental status grossly normal Insight: Good insight present (Psych) Judgement: Good judgement present (Psych) Assessment & Plan Assessment & Plan (1) Acute bacterial sinusitis: Onset Date: ~03/2024 Comment: Patient's history coupled with her physical examination is significant taken for an acute bacterial sinusitis. Patient will be discharged home with antibiotic therapy. Code(s): J01.90 - Acute sinusitis, unspecified; B96.89 - Other specified bacterial agents as the cause of diseases classified elsewhere Plan: Augmentin 500 mg b.i.d. x7 days. Ibuprofen or Tylenol as needed for discomfort. Medications: New amoxicillin-pot clavulanate 500-125 mg (Augmentin) 1 tab PO BID 14 tabs 0RF Coding Level of Care Code Est Pt Level 3 (42338) Diagnoses Acute bacterial sinusitis J01.90; B96.89 Time Spent (min) 20
[2024-04-10 09:56] VITALS: BP 118/72; PULSE 91; TEMP 36.3; O2SAT 97
== END 2024-04-10 11:12 | disposition home or self-care (01) ==
PROVIDERS: PCP Internal Medicine; Visit Provider Physician Assistant
DX: J01.90 Acute sinusitis, unspecified (principal); B96.89 Other specified bacterial agents as the cause of diseases classified elsewhere

== ENCOUNTER → 2024-05-16 09:35 | Outpatient (BNVA) | payer BC, SELFPAY | PROVIDERS: PCP Internal Medicine; Visit Provider Internal Medicine ==

== ENCOUNTER → 2024-05-21 09:29 | Outpatient (BNVA) | payer BC, SELFPAY | PROVIDERS: PCP Internal Medicine; Visit Provider Internal Medicine ==

== ENCOUNTER 2024-07-27 10:30 | Outpatient (AMB) | payer BC, SELFPAY ==
--- NOTE | 2024-07-27 10:50 | AM.OFFVISNUR ---
Intake Visit Reasons: Lynda Slaughtert (? Teaching) Allergies lactose [LACTOSE] Allergy (Unknown, Verified 05/21/24 09:30) GI UPSET latex Allergy (Unknown, Uncoded 05/21/24 09:30) unknown Office Meds Stelara 90 mg/mL subcutaneous syringe Performing Provider: Masha Mcfadden MD Performing Location[place] [facility] Administered by: Kim Milan RN on 07/27/24 10:50 Dose Route Admin Location Dispensed Lot Number Expiration Date [facility] [employer] 90 mg subcut Upper, Outer Arm, Left 1 mL [id number] 10/29/26 [id number] [employer] Assessment & Plan Assessment & Plan Orders: Orders AMB Ustekinumab Injection Today K50.90 - Crohn's disease, unspecified, without complications Medications: New Stelara (ustekinumab) 90 mg subcut ONCE 1 mL 0RF NS K50.90 - Crohn's disease, unspecified, without complications Coding Level of Care Code Established Pt Est Pt Level 1 (56563) Patient Type Established Medical Decision Making Straight Forward
== END 2024-07-27 10:50 | disposition home or self-care (01) ==
LOC: HO.HGI 10:30
PROVIDERS: PCP Internal Medicine; Visit Provider Internal Medicine
DX: K50.90 Crohn's disease, unspecified, without complications (principal)

== ENCOUNTER → 2024-07-27 10:30 | Outpatient (BNVA) | payer BC, SELFPAY | PROVIDERS: PCP Internal Medicine; Visit Provider Internal Medicine | DX: K50.90 Crohn's disease, unspecified, without complications (principal) | CPT/HCPCS: 96372; 99211; J3357 ==

== ENCOUNTER 2024-09-26 18:31 | Inpatient (IN) | payer BC, SELFPAY ==
--- NOTE | ~2024-09-26 | XR_ITS ---
EXAMINATION: XR ABDOMEN 1 VIEW (KUB) HISTORY: sbo follow up COMPARISON: Correlation is made with a CT of the abdomen with contrast dated 09/26/2024. FINDINGS: Four supine views of the abdomen are submitted. A nasogastric tube is seen with its tip in the stomach. Oral contrast is seen throughout the colon. There are mildly dilated air-filled loops of small bowel in the left upper quadrant. There are phleboliths in the pelvis. There are no abnormal soft tissue masses. The bones are intact. XR/XR KUB IMPRESSION: Prominent loops of dilated small bowel in the left upper quadrant. Oral contrast is seen throughout the colon indicating incomplete obstruction. Electronically signed by: Humza Ma MD 09/28/2024 08:57 AM EDT
--- NOTE | ~2024-09-26 | XR_ITS ---
CLINICAL HISTORY: f u sbo 1 view abdomen Comparison: CR/TX/SR - XR KUB - 09/28/24 08:49 EDT Findings: No pneumoperitoneum or pneumatosis. Mild gaseous distention of the colon. No abnormal calcifications. No acute fractures. IMPRESSION: Mild gaseous distention of the colon, nonspecific. No definite small bowel dilation. This document has been electronically signed by: López Oakley MD on 09/30/2024 09:45:28
--- NOTE | ~2024-09-26 | XR_ITS ---
CLINICAL HISTORY: midline lumbar pain 3 views lumbar spine Comparison: None Findings: Transitional vertebral anatomy with small ribs of the T12 and otherwise 5 lumbar type vertebrae for the purposes of this dictation. Normal heights of 5 lumbar vertebrae. Intervertebral disc changes noted with L2-L3 intervertebral disc height loss and multifocal endplate sclerosis including L1-L2 and L2-L3. Degenerative changes include facet arthropathy in the mid and lower lumbar spine. L4 and L5 pars are partly obscured without definite lysis. No significant listhesis. Majority of the sacrum is obscured. Degenerative changes include partially imaged SI joints of the partially imaged hips. Vascular calcifications noted in the [id number]-fewz. Small bowel dilatation is nonspecific measuring 4 cm diameter left upper quadrant. Differential considerations include sentinel loop ileus and developing small bowel obstruction. IMPRESSION: 1. Small bowel dilatation in the [id number]. This can be seen with sentinel loop ileus and with the pancreatitis. Differential considerations also include developing small bowel obstruction. 2. Degenerative changes of the lumbar spine, including lumbar facet arthropathy. This document has been electronically signed by: Pasquale Solano MD on 09/26/2024 19:28:16
--- NOTE | ~2024-09-26 | CT_ITS ---
CLINICAL HISTORY: ? sbo on xray CT abdomen and pelvis with contrast Comparison: None Findings: No consolidation or effusion. The appearance of the liver suggests fatty infiltration without focal lesion. The gallbladder and solid organs are within normal limits. No renal stones. There are distended loops of small bowel with transition point in the mid pelvis. There is long segment of distal ileum with irregular appearance. Correlate for infectious or inflammatory bowel disease. There is associated mesenteric adenopathy. No pneumoperitoneum or pneumatosis. Pelvic contents unremarkable. Normal appendix. The bones are intact. IMPRESSION: 1. Small -bowel obstruction. 2. Distal ileal abnormality possibly related to inflammatory or infectious bowel disease. 3. Hepatic steatosis This document has been electronically signed by: Alek Burgos MD on 09/26/2024 22:50:12
--- NOTE | ~2024-09-26 | XR_ITS ---
CLINICAL HISTORY: verify tube placement 1 view chest x-ray Comparison: None available Findings: Enteric tube terminates in expected body of the stomach. Side port is obscured. Low lung volumes with mild bibasilar atelectasis/pneumonitis. Borderline cardiomegaly accentuated by AP technique. Imaged osseous structures are unremarkable. IMPRESSION: 1. Low lung volumes with mild bibasilar atelectasis. 2. Enteric tube terminates in the body of the stomach. Side port is obscured. This document has been electronically signed by: Pasquale Solano MD on 09/27/2024 01:02:07
[2024-09-26 18:49] VITALS: BP 143/112; PULSE 115; RESP 16; TEMP 36.6; O2SAT 97; BMI 36.9
[2024-09-26 19:03] LABS: MANUAL DIFF FLAG NO
--- NOTE | 2024-09-26 19:05 | ED.BACK ---
HPI - Back Pain/Injury General Chief Complaint: Back Pain/Injury Stated Complaint: ?kidney stones, vomiting, lower back & groin pain Time Seen by Provider: 09/26/24 19:48 History of Present Illness ED Provider: Inga Vargas PA-C HPI Narrative: 54-year-old female with a history of bipolar disorder, anxiety, ADHD, Crohn's disease, IBD, GERD, asthma, hypertension, hyperlipidemia, morbid obesity, with significant surgical history including both EGD and colonoscopy, right partial nephrectomy secondary to renal cell carcinoma, endometrial ablation secondary to endometriosis, x2 with tubal ligation, presents with diffuse abdominal pain x3 days. Associated intractable nausea /vomiting, abdominal distention and inability to pass flatus. No fever. Related Data Home Medications ?Medication ?Instructions ?Recorded ?Confirmed clonazepam 1 mg tablet mg PO 08/08/23 infliximab 100 mg intravenous IV 02/15/24 solution (Remicade) Previous Rx's ?Medication ?Instructions ?Recorded amlodipine 5 mg tablet 5 mg PO DAILY #90 tabs 06/04/22 albuterol sulfate 90 mcg/actuation 1 inh inhalation QID PRN shortness 10/19/22 aerosol inhaler of breath or wheezing #6.7 grams lamotrigine 150 mg tablet 150 mg PO BID 90 days #180 tabs 08/02/23 (Lamictal) oxcarbazepine 300 mg tablet See Rx Instructions .Route 10/05/23 .COMPLEX 3 months #270 tabs azathioprine 50 mg tablet (Imuran) 50 mg PO DAILY #90 tabs 02/15/24 guanfacine 1 mg tablet 1 mg PO TID #90 tabs 02/15/24 amoxicillin 500 mg-potassium 1 tab PO BID #14 tabs 04/10/24 clavulanate 125 mg tablet (Augmentin) ustekinumab 130 mg/26 mL 520 mg (104 mL) IV ONCE #104 mL 05/23/24 intravenous solution (Stelara) ustekinumab 90 mg/mL subcutaneous 90 mg subcut Q8W 16 weeks #2 mL 05/23/24 syringe (Stelara) Allergies Allergy/AdvReac Type Severity Reaction Status Date / Time lactose [LACTOSE] Allergy Unknown GI UPSET Verified 09/26/24 18:53 latex Allergy Unknown unknown Uncoded 05/21/24 09:30 [facility] Past Medical History Attestation statement: The following information was validated with the patient. Medical History (Updated 09/27/24 @ 00:34 by ANA Diggs) Generalized anxiety disorder Bipolar II disorder with rapid cycling ADHD (attention deficit hyperactivity disorder) Cyclothymia Inflammatory bowel disease History of kidney cancer Dyspepsia Asthma, exercise induced Lipid disorder Bipolar 1 disorder Family history of coronary artery disease Surgical History History of esophagogastroduodenoscopy (EGD) H/O colonoscopy Hx of elbow surgery H/O right nephrectomy Status post breast reduction History of endometrial ablation History of bunionectomy History of tubal ligation History of section Family History Family History Father HTN (hypertension) High cholesterol Colon polyp History of open heart surgery Mother High cholesterol CVD (cardiovascular disease) H/O: hysterectomy Non-Hodgkin lymphoma Maternal Grandfather HTN (hypertension) Myocardial infarction CVD (cardiovascular disease) Maternal Grandmother CVD (cardiovascular disease) HTN (hypertension) Myocardial infarction Breast cancer, Onset Age: 45 Paternal Grandfather Diabetes mellitus Throat cancer Paternal Grandmother Breast cancer Bone cancer Brother No problems noted. Sister Bone cancer HTN (hypertension) Ovarian cancer Non-Hodgkin lymphoma Daughter No problems noted. Daughter No problems noted. Maternal Aunt Breast cancer, Onset Age: 44 Maternal Aunt CVD (cardiovascular disease) Sister Follicular lymphoma Paternal Grandmother Breast cancer Other Mental health disorder Substance use disorder Social History Social History Housing: House Comment: medicated with Tylenol 975 mg PO at 1312 Patient Tobacco Use Status: Former Tobacco user Tobacco use type: Cigarette Smoked in Last 30 Days: No e-Cigarette/Vaping Use: Never Used Use of substances other than those prescribed or required for medical reasons: No Advance Directives: No Advance Directives Information Provided: Yes Do you have a plan to hurt others: No Plan Patient : No service: No Current occupational status: employed Current occupation: [employer] Cognitive needs: No Hearing needs: No Vision needs: No Physical Exam Vital Signs: Vital Signs: Last Vital Signs Temp 97.9 F 09/26/24 18:49 Pulse 86 09/27/24 00:00 Resp 16 09/27/24 00:00 BP 130/88 09/27/24 00:00 Pulse Ox 95 09/27/24 00:00 O2 Del Method Room Air 09/27/24 00:00 BMI result Body Mass Index 36.9 Course Course Course Narrative: This is a Rapid Medical Examination (RME) performed by Rosanna Woods PA-C in triage. Full HPI, ROS, assessment and treatment plan per primary provider in the Main ED. Hx: 54 yo female hx of right RCC s/p partial nephrectomy here for eval of b/l low back pain radiating to lower abdomen, assoc nausea and vomiting x3 days. no urinary sx. unable to tolerate PO. no injury or trauma. no hx spinal surgery. no IVDU. PE/vitals: midline lumbar spinous tenderness without step-off deformity. No CVAT bilaterally. Plan: labs, UA, xr Consultations Consultation #1: per Heather ...... She recommends med admit, the patient should have GI consult to rule out Crohn's flare, no surgery at this time, she will round on the patient this morning. Time: 22:55 Medications Administered Discontinued Medications Generic Name Dose Route Start Last Admin Trade Name Freq PRN Reason Stop Dose Admin Diazepam 2.5 mg 09/26/24 19:51 09/26/24 20:17 Diazepam 10 Mg/2 Ml Cartridge IVPUSH 09/26/24 19:52 2.5 mg STAT STA Administration Sodium Chloride 1,000 mls @ 999 mls/hr 09/26/24 20:00 09/27/24 00:41 Ns IV 09/26/24 21:00 Infused .Q1H1M GENARO Infusion Iohexol 85 ml 09/26/24 22:22 09/26/24 22:22 Iohexol 350 Mg/Ml 100 Ml Infus..Btl IV 09/26/24 22:23 85 ml ONCE ONE Administration Midazolam HCl 5 mg 09/26/24 23:13 09/26/24 23:22 Midazolam Hcl 5 Mg/Ml Vial IVPUSH 09/26/24 23:14 5 mg ONCE ONE Administration Morphine Sulfate 4 mg 09/26/24 19:51 09/26/24 20:17 Morphine Sulfate 4 Mg/Ml Cartridge IVPUSH 09/26/24 19:52 4 mg ONCE ONE Administration Protocol Morphine Sulfate 4 mg 09/26/24 23:13 09/26/24 23:22 Morphine Sulfate 4 Mg/Ml Cartridge IVPUSH 09/26/24 23:14 4 mg ONCE ONE Administration Protocol Ondansetron HCl 4 mg 09/26/24 18:51 09/26/24 20:15 Ondansetron Odt 4 Mg Tab.Hattiedis TRANSLINGU 09/26/24 18:52 Not Given ONCE ONE Medical Decision Making Medical Decision Making MDM Narrative: 54-year-old female with a history of bipolar disorder, anxiety, ADHD, Crohn's disease, IBD, GERD, asthma, hypertension, hyperlipidemia, morbid obesity, with significant surgical history including both EGD and colonoscopy, right partial nephrectomy secondary to renal cell carcinoma, endometrial ablation secondary to endometriosis, x2 with tubal ligation, presents with diffuse abdominal pain x3 days. Associated intractable nausea /vomiting, abdominal distention and inability to pass flatus. No fever. X-ray lumbar spine:IMPRESSION: 1. Small bowel dilatation in the [id number]. This can be seen with sentinel loop ileus and with the pancreatitis. Differential considerations also include developing small bowel obstruction. 2. Degenerative changes of the lumbar spine, including lumbar facet arthropathy. CT abd pelvis: No consolidation or effusion. The appearance of the liver suggests fatty infiltration without focal lesion. The gallbladder and solid organs are within normal limits. No renal stones. There are distended loops of small bowel with transition point in the mid pelvis. There is long segment of distal ileum with irregular appearance. Correlate for infectious or inflammatory bowel disease. There is associated mesenteric adenopathy. No pneumoperitoneum or pneumatosis. Pelvic contents unremarkable. Normal appendix. The bones are intact. IMPRESSION: 1. Small -bowel obstruction. 2. Distal ileal abnormality possibly related to inflammatory or infectious bowel disease. 3. Hepatic steatosis Lab Data 09/26/24 18:58 09/26/24 18:58 Labs: Lab Results 09/26/24 09/26/24 Range/Units 18:58 21:06 WBC 11.6 H (4.8-10.8) X10*3/uL RBC 5.43 (4.20-5.50) X10*6/uL Hgb 15.0 (12.0-16.0) g/dl Hct 43.8 (37.0-47.0) % MCV 80.7 (80.0-98.0) fL MCH 27.6 (27.0-33.0) pg MCHC 34.2 (31.0-35.0) g/dl RDW 13.2 (11.0-16.0) % Plt Count 430 H D (160-400) X10*3/uL MPV 9.9 (9.4-12.3) fL Immature Gran % (Auto) 0.3 (0.0-0.4) % Neut % (Auto) 71.7 (45-73) % Lymph % (Auto) 20.8 (20-40) % [place] % (Auto) 6.5 (2-11) % Eos % (Auto) 0.4 (0-4) % Baso % (Auto) 0.3 (0-2) % Lymph # (Auto) 2.4 (1.2-4.9) X10*3/uL [place] # (Auto) 0.8 (0.1-1.2) X10*3/uL Eos # (Auto) 0.1 (0.0-0.4) X10*3/uL Baso # (Auto) 0.0 (0.0-0.2) X10*3/uL Abs Immat Gran (auto) 0.03 (0.00-0.03) X10*3/uL Absolute Neuts (auto) 8.3 (2.0-8.3) x10*3/uL Absolute Nucleated RBC 0.000 (0.0-0.012) X10*3/uL Nucleated RBC % (auto) 0.0 (0.0-0.2) /100WBC Sodium 138 (135-145) mmol/L Potassium 4.4 (3.3-5.1) mmol/L Chloride 102 (96-108) mmol/L Carbon Dioxide 25 (22-29) mmol/L Anion Gap 15 (12-20) BUN 12 (9-16) mg/dL Creatinine 0.70 (0.5-1.4) mg/dL Estim Creat Clear Calc 116.9 Estimated GFR > 60 Random Glucose 120 H (60-115) mg/dL Calcium 9.4 (8.4-10.2) mg/dL Magnesium 2.0 (1.6-2.6) mg/dL Total Bilirubin 1.0 (0.0-1.0) mg/dL AST 19 (5-31) U/L ALT 24 (0-31) U/L Alkaline Phosphatase 79 (39-117) U/L Total Protein 7.7 (6.5-8.0) g/dL Albumin 4.5 (3.5-5.0) g/dL Lipase 12 (8-78) U/L Urine Color Dark Yellow Urine Appearance Clear Urine pH 6.0 (5.0-9.0) Ur Specific [place] 1.025 (1.005-1.025) Urine Protein 30 (1+) H (Neg-Trace) mg/dL Urine Glucose (UA) Negative (Negative) mg/dL Urine Ketones 80 (Negative) mg/dL Urine Blood Negative (Negative) Urine Nitrite Negative (Negative) Ur Leukocyte Esterase Moderate (2+) H (Negative) Urine RBC 0-2 (0-2) /HPF Urine WBC 11-20 H (0-5) /HPF Ur Squamous Epith Cells 3-5 (0-2) /HPF Urine Bacteria None Seen (None Seen) Hyaline Casts 6-10 (0-2) /LPF Discharge Plan Discharge Clinical Impression: Constipation, Small bowel obstruction Patient Disposition: Admitted As Inpatient Print Language: St Helen[place]
[2024-09-26 19:07] LABS: Basophils Percent Auto 0.3 % (0-2); Eosinophils Absolute Auto 0.1 X10*3/uL (0.0-0.4); Eosinophils Percent Auto 0.4 % (0-4); Hematocrit 43.8 % (37.0-47.0); Imm Gran Abs Auto 0.03 X10*3/uL (0.00-0.03); Imm Gran Pct Auto 0.3 % (0.0-0.4); Lymphocytes Absolute Auto 2.4 X10*3/uL (1.2-4.9); Lymphocytes Percent Auto 20.8 % (20-40); Mean Corpuscular HGB Conc 34.2 g/dl (31.0-35.0); Mean Corpuscular Hemoglobin 27.6 pg (27.0-33.0); Mean Corpuscular Volume 80.7 fL (80.0-98.0); Mean Platelet Volume 9.9 fL (9.4-12.3); Monocytes Absolute Auto 0.8 X10*3/uL (0.1-1.2); Monocytes Percent Auto 6.5 % (2-11); Neutrophils Absolute Auto 8.3 x10*3/uL (2.0-8.3); Neutrophils Percent Auto 71.7 % (45-73); Platelet Count 430 X10*3/uL (160-400); Red Blood Count 5.43 X10*6/uL (4.20-5.50); Red Cell Distribution Width 13.2 % (11.0-16.0); White Blood Count 11.6 X10*3/uL (4.8-10.8)
[2024-09-26 19:17] LABS: Alanine Aminotransferase 24 U/L (0-31); Albumin Level 4.5 g/dL (3.5-5.0); Alkaline Phosphatase 79 U/L (39-117); Anion Gap 15 (12-20); Aspartate Amino Transferase 19 U/L (5-31); Blood Urea Nitrogen 12 mg/dL (9-16); Calcium 9.4 mg/dL (8.4-10.2); Carbon Dioxide 25 mmol/L (22-29); Chloride 102 mmol/L (96-108); Creatinine Clr Calc Pharmacy 116.9; Estimated Glomerular Filt Rate > 60; Glucose Random 120 mg/dL (60-115); Potassium 4.4 mmol/L (3.3-5.1); Sodium 138 mmol/L (135-145); Total Protein 7.7 g/dL (6.5-8.0)
[2024-09-26 19:55] VITALS: BP 148/107; PULSE 92; RESP 18; O2SAT 96
[2024-09-26 20:17] VITALS: RESP 20
[2024-09-26] MEDS: Morphine Sulfate 4 MG/ML CARTRIDGE IVPUSH ×2 (20:17→23:22)
[2024-09-26] MEDS: diazePAM 10 MG/2 ML CARTRIDGE 2.5 MG IVPUSH (20:17)
[2024-09-26] MEDS: 0.9 % Sodium Chloride 1,000 ML 999 ML IV (20:18)
[2024-09-26 21:16] LABS: Appearance Urine Clear; Color Urine Dark Yellow; Glucose Urine UA Negative (Negative); Leukocyte Esterase Urine Moderate (2+) (Negative); Nitrite Urine Negative (Negative); Specific Gravity - Urine 1.025 (1.005-1.025); UMIC TRIGGER UACC YES; Urine Blood Negative (Negative); Urine Ketones 80 mg/dL (Negative); Urine Protein 30 (1+) mg/dL (Neg-Trace)
[2024-09-26 21:28] LABS: Bacteria Urine None Seen (None Seen); RBC Urine 0-2 /HPF (0-2); UACC Culture Trigger YES
[2024-09-26] MEDS: iohexoL 350 MG/ML 100 ML INFUS..BTL 85 ML IV (22:22)
[2024-09-26 22:55] VITALS: BP 131/88; PULSE 77; RESP 18; O2SAT 97
[2024-09-26 23:22] VITALS: PULSE 88
[2024-09-26] MEDS: Midazolam HCl 5 MG/ML VIAL IVPUSH (23:22)
[2024-09-27] VITALS: BP 130/88; PULSE 86; RESP 16; O2SAT 95
--- NOTE | 2024-09-27 00:41 | PC.NURSE ---
This RN assumed pt care @ 2300. This RN documented against NS completed. Pt not attached to NS upon this RN assuming care. Plan of care ongoing.
--- NOTE | 2024-09-27 00:45 | PC.NURSE ---
Pt requested and assisted with socks Pts at bedside Plan of care ongoing.
--- NOTE | 2024-09-27 00:50 | P.HPHOSP_ITS ---
History of Present Illness Date of Service: 09/27/24 Attending physician on admission: iLnda Ferreira Chief Complaint: Back and abdominal pain Patient is a 54-year-old female with past medical history Crohn's disease diagnosed 1 year prior on Stelara, right renal carcinoma with partial right kidney removal, endometriosis, partial thyroidectomy, obesity, breast reduction, abdominoplasty, chronic low back pain, vitamin-D deficiency, bipolar 2, exercise-induced asthma presents to the emergency department after 3 days of progressive bilateral lower back pain and abdominal pain with profuse vomiting and nausea. Patient states she was camping over the weekend and upon returning Tuesday 9 after visiting her daughter, approximately 18:30 patient has started vomiting. Patient could only tolerate saltine crackers. Patient was denying chest pain and shortness of breath at the time. Patient works from home and was able to get through work on Tuesday with continued symptoms. By Tuesday at 10:47 patient's symptoms returned with a vengeance and her vomiting was nonstop. 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 Patient's returned home from work at 14:30, noted how patient was doing and patient ultimately decided to go to the emergency department. Patient was worried because of her history of renal carcinoma that she was having a reoccurrence or kidney stones. Patient denies history of gallstones. CT scan in the emergency department noted a small bowel obstruction with distal ileal abnormality related to possible inflammatory infectious bowel disease. Also indicated was hepatic steatosis. Emergency room provider contacted General surgery and asked that patient be admitted under the hospitalist service with an NG-tube placed to low wall suction. Patient will be seen in the morning by General surgery. Patient states she does not take any GLP 1 medications. General labs are stable except for a mild leukocytosis without left shift. Lactic acid is pending. Blood cultures x2 drawn prior to starting ceftriaxone for suspected UTI. NG tube was placed in the emergency department and chest x-ray confirmed proper placement. Upon interviewing patient for admission, NG tube was not attached to low wall suction. Requested that nursing start low wall suction as patient remains symptomatic with significant distention and firmness of the abdomen. Patient was placed on low wall suction with minimal fluids extracted. Patient has been receiving IV narcotics for pain management. Noting patient has a bowel obstruction changing pain management to Dilaudid 1 mg q.4 as needed for severe pain only. Patient is currently NPO. Incidentally urinalysis is suspicious for UTI. Patient is being started on ceftriaxone 1 g daily. Review of Systems 2 Review of Systems: Patient currently reporting abdominal distention, cramping and pain from the back to the front of the abdomen. Patient denies any flatulence. Currently patient has no nausea or vomiting as NG tube was placed to low wall suction. Patient denies any recent falls, she currently denies any chest pain or shortness of breath at rest. Patient did have 1 small episode of diarrhea the morning of admission. Patient often has diarrhea due to her Crohn's disease. Yes all other systems are reviewed and are negative [facility] Medical History (Updated 09/27/24 @ 00:34 by ANA Diggs) Generalized anxiety disorder Bipolar II disorder with rapid cycling ADHD (attention deficit hyperactivity disorder) Cyclothymia Inflammatory bowel disease History of kidney cancer Dyspepsia Asthma, exercise induced Lipid disorder Bipolar 1 disorder Family history of coronary artery disease Cognitive capacity: Alert and orientated x3 Functional capacity: independent ambulation Patient : No Family History Father HTN (hypertension) High cholesterol Colon polyp History of open heart surgery Mother High cholesterol CVD (cardiovascular disease) H/O: hysterectomy Non-Hodgkin lymphoma Maternal Grandfather HTN (hypertension) Myocardial infarction CVD (cardiovascular disease) Maternal Grandmother CVD (cardiovascular disease) HTN (hypertension) Myocardial infarction Breast cancer, Onset Age: 45 Paternal Grandfather Diabetes mellitus Throat cancer Paternal Grandmother Breast cancer Bone cancer Brother No problems noted. Sister Bone cancer HTN (hypertension) Ovarian cancer Non-Hodgkin lymphoma Daughter No problems noted. Daughter No problems noted. Maternal Aunt Breast cancer, Onset Age: 44 Maternal Aunt CVD (cardiovascular disease) Sister Follicular lymphoma Paternal Grandmother Breast cancer Other Mental health disorder Substance use disorder Surgical History History of esophagogastroduodenoscopy (EGD) H/O colonoscopy Hx of elbow surgery H/O right nephrectomy Status post breast reduction History of endometrial ablation History of bunionectomy History of tubal ligation History of section Social History Housing: House Comment: medicated with Tylenol 975 mg PO at 1312 Patient Tobacco Use Status: Former Tobacco user Tobacco use type: Cigarette Smoked in Last 30 Days: No e-Cigarette/Vaping Use: Never Used Use of substances other than those prescribed or required for medical reasons: No Advance Directives: No Advance Directives Information Provided: Yes Do you have a plan to hurt others: No Plan Patient : No service: No Current occupational status: employed Current occupation: [employer] / [employer] Cognitive needs: No Hearing needs: No Vision needs: No Ebola Risk: Travel/Contact With Anyone From Affected Area/s: No Has Patient Experienced Ebola Symptoms: No Meds Allergies Allergy/AdvReac Type Severity Reaction Status Date / Time lactose [LACTOSE] Allergy Unknown GI UPSET Verified 09/26/24 18:53 latex Allergy Unknown unknown Uncoded 05/21/24 09:30 Active Medications: Current Medications Acetaminophen (Acetaminophen 325 Mg Tablet) 650 mg PO Q6H PRN PRN Reason: Pain, Mild 1-3,fever,headache Calcium Carbonate (Calcium Carbonate 750 Mg Tab.Chew) 750 mg PO Q4H PRN PRN Reason: Heartburn Enoxaparin Sodium (Enoxaparin Sodium 40 Mg/0.4 Ml Syringe) 40 mg SUBCUT Q24H [facility] Magnesium Hydroxide (Milk Of Magnesia 30 Ml Oral.Susp) 30 ml PO DAILY PRN PRN Reason: Constipation Ondansetron HCl (Ondansetron Hcl 4 Mg/2 Ml Vial) 4 mg IVPUSH Q8H PRN PRN Reason: Nausea and Vomiting Sodium Chloride (0.9 % Sodium Chloride Flush 3 Ml Syringe) 3 ml IVFLUSH QSHIFT [facility] Home Medications ?Medication ?Instructions ?Recorded ?Confirmed ?Last Taken ?Type clonazepam 1 mg tablet mg PO 08/08/23 Unknown History infliximab 100 mg intravenous IV 02/15/24 Unknown History solution (Remicade) Physical Exam 2 Vital Signs and Narrative: Vital Signs: Last Vital Signs Temp 97.9 F 09/26/24 18:49 Pulse 86 09/27/24 00:00 Resp 16 09/27/24 00:00 BP 130/88 09/27/24 00:00 Pulse Ox 95 09/27/24 00:00 O2 Del Method Room Air 09/27/24 00:00 BMI result Body Mass Index 36.9 Alert and orientated X3, able to give good history. In mild distress from abdominal discomfort Neuro: CN II-X11 intact, no deficits, visual acuity intact EYES: PERRLA, EOM intact, conjunctiva pink, sclera nonicteric ENT: hearing intact, no issues with swallowing, uvula midline, lips moist, nares patent no epistaxis Cardiac: S1 S2 RRR, no murmur, no JVD, no edema in Lower ext Pulmonary: lungs clear to auscultation B Abdominal: BS hypo active in all 4 quadrants, no guarding, tenderness, rebounding. Abdomen is grossly distended and firm in the umbilicus and lower abdominal area. MSK: strength 4/5 upper and lower extremities : no CVA tenderness no bladder distension Extremities: no edema in lower extremities, PT and DP pulses palpable +2 Psych: mood mildly anxious, judgement and insight good Skin: Intact Results Labs 09/26/24 18:58 09/26/24 18:58 Labs: Laboratory Results - last 24 hr 09/26/24 09/26/24 18:58 21:06 MCV 80.7 MCH 27.6 MCHC 34.2 RDW 13.2 Plt Count 430 H D MPV 9.9 Immature Gran % (Auto) 0.3 Neut % (Auto) 71.7 Lymph % (Auto) 20.8 [place] % (Auto) 6.5 Eos % (Auto) 0.4 Baso % (Auto) 0.3 Lymph # (Auto) 2.4 [place] # (Auto) 0.8 Eos # (Auto) 0.1 Baso # (Auto) 0.0 Abs Immat Gran (auto) 0.03 Absolute Neuts (auto) 8.3 Absolute Nucleated RBC 0.000 Nucleated RBC % (auto) 0.0 Anion Gap 15 Estim Creat Clear Calc 116.9 Estimated GFR > 60 Random Glucose 120 H Calcium 9.4 Magnesium 2.0 Total Bilirubin 1.0 AST 19 ALT 24 Alkaline Phosphatase 79 Total Protein 7.7 Albumin 4.5 Urine Color Dark Yellow Urine Appearance Clear Urine pH 6.0 Ur Specific [place] 1.025 Urine Protein 30 (1+) H Urine Glucose (UA) Negative Urine Ketones 80 Urine Blood Negative Urine Nitrite Negative Ur Leukocyte Esterase Moderate (2+) H Urine RBC 0-2 Urine WBC 11-20 H Ur Squamous Epith Cells 3-5 Urine Bacteria None Seen Hyaline Casts 6-10 ECG Prior ECG tracings: not available for review Imaging Radiologist's Impressions: CT abdomen and pelvis IMPRESSION: 1. Small -bowel obstruction. 2. Distal ileal abnormality possibly related to inflammatory or infectious bowel disease. 3. Hepatic steatosis Chest x-ray IMPRESSION: 1. Low lung volumes with mild bibasilar atelectasis. 2. Enteric tube terminates in the body of the stomach. Side port is obscured. Assessment and Plan (1) Small bowel obstruction: Status: Acute Plan Patient is a 54-year-old female with past medical history Crohn's disease diagnosed 1 year prior on Stelara, right renal carcinoma with partial right kidney removal, endometriosis, partial thyroidectomy, obesity, breast reduction, abdominoplasty, chronic low back pain, vitamin-D deficiency, bipolar 2, exercise-induced asthma is being admitted with evidence of small-bowel obstruction and an inflammatory/infectious process related to her chronic Crohn's disease. General surgery asked that patient be admitted under the hospitalist service. Patient will be seen by General surgery in the a.m. and gastroenterology has also been consulted per General surgery. Small-bowel obstruction with history of Crohn's disease, evidence of mesenteric adenopathy -General surgery and Gastroenterology consulted -No renal stones noted on CT scan, gallbladder/ liver normal -NG to low wall suction, chest x-ray confirmed proper placement -Patient is NPO -Lactic acid pending -Patient did receive 1 L of IV fluids, hemodynamics are stable, will continue low rate of IVF -Monitor CBC and CMP -Methylprednisolone 125 mgs X1 ordered -Zofran p.r.n. for nausea -Hemodynamics currently stable -PRN Dilaudid for severe pain, trying to avoid frequent use but pt continues with general ABD pain Urinary tract infection -Patient is started on ceftriaxone, blood cultures x2 were drawn initially prior to starting antibiotics -Follow urine culture Atelectasis -Incentive spirometer ordered Lumbar spine pain -Chronic in nature, identified and patient's CT scan -Patient can follow up with the PCP for referrals as needed Exercise-induced asthma -Albuterol p.r.n. -No respiratory concerns at this time Obesity -BMI 36.9 -Patient may benefit from nutritional consult once symptoms improve MDD/ Bipolar -Patient currently NPO, continue current medication regimen once small-bowel obstruction resolved DVT prophylaxis: Lovenox, held in case pt needs surgical procedure PPI prophylaxis: Protonix b.i.d. Med rec pending Full Code status Quality Stroke Does the patient have a stroke diagnosis?: No Reason for No Anti-thrombotic by Day Two: Contraindicated VTE Prior VTE?: No VTE Risk Level:: Medical - moderate - high VTE Device Contraindication: N/A - Device Ordered VTE Drug Contraindication: N/A - Med Ordered
[2024-09-27 01:03] LABS: Lipase 12 U/L (8-78)
[2024-09-27] MEDS: cefTRIAXone sodium 1 GM VIAL IVPUSH (01:55)
[2024-09-27] MEDS: Enoxaparin Sodium 40 MG/0.4 ML SYRINGE SUBCUT (01:58)
--- NOTE | 2024-09-27 02:06 | PC.NURSE ---
Pt medicated [facility] Plan of care ongoing.
[2024-09-27] MEDS: 0.9 % Sodium Chloride 1,000 ML 75 ML IVCONT ×2 (02:36→15:41)
[2024-09-27 02:45] LABS: Lactic Acid 0.7 mmol/L (0.5-2.0)
[2024-09-27 02:51] LABS: Alkaline Phosphatase 66 U/L (39-117)
[2024-09-27 03:04] LABS: Alanine Aminotransferase 20 U/L (0-31); Albumin Level 3.8 g/dL (3.5-5.0); Anion Gap 14 (12-20); Aspartate Amino Transferase 17 U/L (5-31); Bilirubin Total 0.6 mg/dL (0.0-1.0); Blood Urea Nitrogen 10 mg/dL (9-16); Calcium 8.7 mg/dL (8.4-10.2); Carbon Dioxide 25 mmol/L (22-29); Chloride 103 mmol/L (96-108); Creatinine Clr Calc Pharmacy 154.4; Estimated Glomerular Filt Rate > 60; Glucose Random 91 mg/dL (60-115); Potassium 3.7 mmol/L (3.3-5.1); Sodium 138 mmol/L (135-145); Total Protein 6.5 g/dL (6.5-8.0)
[2024-09-27 03:05] LABS: TSH reflex Free T4 3.99 uIU/mL (0.32-4.0)
[2024-09-27 03:31] LABS: Basophils Percent Auto 0.4 % (0-2); Eosinophils Absolute Auto 0.1 X10*3/uL (0.0-0.4); Eosinophils Percent Auto 1.2 % (0-4); Hematocrit 37.2 % (37.0-47.0); Hemoglobin 12.9 g/dl (12.0-16.0); Imm Gran Abs Auto 0.01 X10*3/uL (0.00-0.03); Imm Gran Pct Auto 0.1 % (0.0-0.4); Lymphocytes Percent Auto 25.8 % (20-40); Mean Corpuscular HGB Conc 34.7 g/dl (31.0-35.0); Mean Corpuscular Hemoglobin 27.5 pg (27.0-33.0); Mean Corpuscular Volume 79.3 fL (80.0-98.0); Mean Platelet Volume 9.7 fL (9.4-12.3); Monocytes Absolute Auto 0.5 X10*3/uL (0.1-1.2); Monocytes Percent Auto 6.9 % (2-11); Neutrophils Percent Auto 65.6 % (45-73); Platelet Count 335 X10*3/uL (160-400); Red Blood Count 4.69 X10*6/uL (4.20-5.50); Red Cell Distribution Width 13.1 % (11.0-16.0); White Blood Count 7.7 X10*3/uL (4.8-10.8)
[2024-09-27 03:42] LABS: MANUAL DIFF FLAG NO
[2024-09-27] MEDS: Pantoprazole Sodium 40 MG/10 ML VIAL IVPUSH ×2 (05:54→15:51)
[2024-09-27 07:40] VITALS: BP 133/84; PULSE 93; RESP 21; TEMP 36.9; O2SAT 94
--- NOTE | 2024-09-27 08:45 | PC.NURSE ---
Care of Pt assumed at change of shift. Pt A&Ox3, VSS Pt requests assistance with toileting; bedside commode provided. Pt with NG and connected to wall suction. Pharmacy staff at bedside for med rec. Pt awaiting bed assignment.
--- NOTE | 2024-09-27 09:06 | PM.CNGS ---
History of Present Illness Consult details Consult date: 09/27/24 <Chhaya Barron PA-C - Last Filed: 09/27/24 09:25> Reason for consult: other (SBO) <KHARI Horan Last Filed: 09/27/24 09:25> Narrative: 54-year-old female with PMH of Crohn's disease on Stelara, hx of right renal carcinoma, obesity, bipolar 2, exercise-induced asthma presents to the emergency department with complaints of abdominal pain and vomiting. She reports she developed lower abdominal pain and nausea/vomiting when she returned from camping this weekend and was only able to tolerate saltine crackers. 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 Due to her persistent symptoms she presented to the ED for evaluation. CBC, BMP, LFTs were obtained which were significant for mild leukocytosis of 11.6. CT scan abd/pelvis showed dilated loops of small bowel with transition point in the mid pelvis with a long segment of distal ileum with wall thickening on my review. She feels a little improved since admission, abdominal pain is slightly better. She c/o throat irritation from NGT. She denies passing flatus in days. She reports a liquid BM yesterday. She denies similiar prior episodes, sick contacts, fever, chills. She has a history of right nephrectomy, c sections. <KHARI Horan Last Filed: 09/27/24 09:25> Review of Systems Review of Systems: Yes all other systems are reviewed and are negative <KHARI Horan Last Filed: 09/27/24 09:25> [facility] Past Medical History Medical History: Medical History (Updated 09/27/24 @ 00:34 by ANA Diggs) Generalized anxiety disorder Bipolar II disorder with rapid cycling ADHD (attention deficit hyperactivity disorder) Cyclothymia Inflammatory bowel disease History of kidney cancer Dyspepsia Asthma, exercise induced Lipid disorder Bipolar 1 disorder Family history of coronary artery disease <KHARI Horan Last Filed: 09/27/24 09:25> Family History Family History: Family History Father HTN (hypertension) High cholesterol Colon polyp History of open heart surgery Mother High cholesterol CVD (cardiovascular disease) H/O: hysterectomy Non-Hodgkin lymphoma Maternal Grandfather HTN (hypertension) Myocardial infarction CVD (cardiovascular disease) Maternal Grandmother CVD (cardiovascular disease) HTN (hypertension) Myocardial infarction Breast cancer, Onset Age: 45 Paternal Grandfather Diabetes mellitus Throat cancer Paternal Grandmother Breast cancer Bone cancer Brother No problems noted. Sister Bone cancer HTN (hypertension) Ovarian cancer Non-Hodgkin lymphoma Daughter No problems noted. Daughter No problems noted. Maternal Aunt Breast cancer, Onset Age: 44 Maternal Aunt CVD (cardiovascular disease) Sister Follicular lymphoma Paternal Grandmother Breast cancer Other Mental health disorder Substance use disorder <KHARI Horan Last Filed: 09/27/24 09:25> Surgical History Surgical History: Surgical History History of esophagogastroduodenoscopy (EGD) H/O colonoscopy Hx of elbow surgery H/O right nephrectomy Status post breast reduction History of endometrial ablation History of bunionectomy History of tubal ligation History of section <KHARI Horan Last Filed: 09/27/24 09:25> Social History Social History: Social History Housing: House Comment: medicated with Tylenol 975 mg PO at 1312 Patient Tobacco Use Status: Former Tobacco user Tobacco use type: Cigarette e-Cigarette/Vaping Use: Never Used service: No Current occupational status: employed Current occupation: [employer] / [employer] Cognitive needs: No Hearing needs: No Vision needs: No <KHARI Horan Last Filed: 09/27/24 09:25> Travel History Ebola Risk: Travel/Contact With Anyone From Affected Area/s: No <KHARI Horan Last Filed: 09/27/24 09:25> Has Patient Experienced Ebola Symptoms: No <KHARI Horan Last Filed: 09/27/24 09:25> Meds Allergies/Adverse reactions: Allergies Allergy/AdvReac Type Severity Reaction Status Date / Time lactose [LACTOSE] Allergy Unknown GI UPSET Verified 09/26/24 18:53 latex Allergy Unknown unknown Uncoded 05/21/24 09:30 <Chhaya Barron PA-C - Last Filed: 09/27/24 09:25> Active Medications: Current Medications Acetaminophen (Acetaminophen 325 Mg Tablet) 650 mg PO Q6H PRN PRN Reason: Pain, Mild 1-3,fever,headache Albuterol Sulfate (Albuterol Sulfate (0.083%) 2.5 Mg/3 Ml Vial.Neb) 2.5 mg INHALE Q6H PRN PRN Reason: Shortness of Breath/Wheezing Calcium Carbonate (Calcium Carbonate 750 Mg Tab.Chew) 750 mg PO Q4H PRN PRN Reason: Heartburn Ceftriaxone Sodium (Ceftriaxone Sodium 1 Gm Vial) 1 gm IVPUSH Q24H [facility] Last Admin: 09/27/24 01:55 Dose: 1 gm Enoxaparin Sodium (Enoxaparin Sodium 40 Mg/0.4 Ml Syringe) 40 mg SUBCUT Q24H [facility] Last Admin: 09/27/24 01:58 Dose: 40 mg Hydromorphone HCl (Hydromorphone Hcl 1 Mg/Ml Syringe) 1 mg IVPUSH Q4H PRN; Protocol PRN Reason: Pain, Severe (Pain Scale 7-10) Sodium Chloride (Ns) 1,000 mls @ 75 mls/hr IVCONT .[id number] [facility] Last Admin: 09/27/24 02:36 Dose: 75 mls/hr Magnesium Hydroxide (Milk Of Magnesia 30 Ml Oral.Susp) 30 ml PO DAILY PRN PRN Reason: Constipation Ondansetron HCl (Ondansetron Hcl 4 Mg/2 Ml Vial) 4 mg IVPUSH Q8H PRN PRN Reason: Nausea and Vomiting Pantoprazole Sodium (Pantoprazole Sodium 40 Mg/10 Ml Vial) 40 mg IVPUSH BID@0630,1630 [facility] Last Admin: 09/27/24 05:54 Dose: 40 mg Sodium Chloride (0.9 % Sodium Chloride Flush 3 Ml Syringe) 3 ml IVFLUSH QSHIFT [facility] Last Admin: 09/27/24 07:39 Dose: Not Given <Chhaya Barron PA-C - Last Filed: 09/27/24 09:25> Home medications: Home Medications ?Medication ?Instructions ?Recorded ?Confirmed ?Last Taken ?Type ustekinumab 90 mg/mL subcutaneous 90 mg subcut Q8W 09/27/24 09/27/24 Unknown History syringe (Younglara) <KHARI Horan Last Filed: 09/27/24 09:25> Physical Exam Vital Signs: Vital Signs: Last Vital Signs Temp 98.5 F 09/27/24 07:40 Pulse 93 09/27/24 07:40 Resp 21 H 09/27/24 07:40 BP 133/84 09/27/24 07:40 Pulse Ox 94 09/27/24 07:40 O2 Del Method Room Air 09/27/24 07:40 BMI result Body Mass Index 36.9 <KHARI Hoarn Last Filed: 09/27/24 09:25> Const: Other: uncomfortable appearing <Chhaya Barron PA-C Last Filed: 09/27/24 09:25> General: no acute distress and alert <Chhaya Barron PA-C Last Filed: 09/27/24 09:25> Orientation/consciousness: patient oriented x3 <Chhaya Barron PA-C Last Filed: 09/27/24 09:25> Resp: Effort & Inspection: normal respiratory effort <KHARI Horan Last Filed: 09/27/24 09:25> GI: Inspection: Yes distended and Yes scar (midline scar subxyphoid to infraumbilical) <KHARI Horan Last Filed: 09/27/24 09:25> Palpation (GI): Soft to palpation, Tenderness to palpation present (GI) (moderate diffuse tenderness) and no guarding <KHARI Horna Last Filed: 09/27/24 09:25> Percussion: Yes tympanic to percussion <KHARI Horan Last Filed: 09/27/24 09:25> Abdomen image: 1. <Chhaya Barron PA-C Last Filed: 09/27/24 09:25> Skin: General skin exam: no rashes or lesions noted <KHARI Horan Last Filed: 09/27/24 09:25> Neuro: General: patient oriented x3 and moves all extremities <KHARI Horan Last Filed: 09/27/24 09:25> Results Labs Result diagrams: 09/27/24 03:26 09/27/24 02:24 <KHARI Horan Last Filed: 09/27/24 09:25> Labs: Abnormal lab results 09/26/24 09/26/24 09/27/24 Range/Units 18:58 21:06 03:26 WBC 11.6 H (4.8-10.8) X10*3/uL MCV 79.3 L (80.0-98.0) fL Plt Count 430 H D (160-400) X10*3/uL Random Glucose 120 H (60-115) mg/dL Urine Protein 30 (1+) H (Neg-Trace) mg/dL Ur Leukocyte Esterase Moderate (2+) H (Negative) Urine WBC 11-20 H (0-5) /HPF Short CBC 09/26/24 09/27/24 Range/Units 18:58 03:26 WBC 11.6 H 7.7 (4.8-10.8) X10*3/uL Hgb 15.0 12.9 (12.0-16.0) g/dl Hct 43.8 37.2 (37.0-47.0) % Plt Count 430 H D 335 (160-400) X10*3/uL BMP 09/26/24 09/27/24 18:58 02:24 Sodium 138 138 Potassium 4.4 3.7 Chloride 102 103 Carbon Dioxide 25 25 BUN 12 10 Creatinine 0.70 0.53 Calcium 9.4 8.7 D Liver Function 09/26/24 09/27/24 Range/Units 18:58 02:24 Total Bilirubin 1.0 0.6 (0.0-1.0) mg/dL AST 19 17 (5-31) U/L ALT 24 20 (0-31) U/L Alkaline Phosphatase 79 66 (39-117) U/L Albumin 4.5 3.8 (3.5-5.0) g/dL Urine 09/26/24 Range/Units 21:06 Urine Color Dark Yellow Urine Appearance Clear Urine pH 6.0 (5.0-9.0) Ur Specific [place] 1.025 (1.005-1.025) Urine Protein 30 (1+) H (Neg-Trace) mg/dL Urine Glucose (UA) Negative (Negative) mg/dL All other labs normal. <Chhaya Barron PA-C - Last Filed: 09/27/24 09:25> Imaging Abdomen CT scan report/results: report reviewed and image reviewed <Chhaya Barron PA-C - Last Filed: 09/27/24 09:25> Assessment and Plan (1) Small bowel obstruction: Status: Acute <Chhaya Barron PA-C - Last Filed: 09/27/24 09:25> (2) Crohn's disease: Status: Acute <Chhaya Barron PA-C - Last Filed: 09/27/24 09:25> Known Crohn's disease, on [facility] Being followed by Dr. Mcfadden Admitted for abdominal pain and nausea and vomiting CAT scan showing long segment narrowing consistent with Crohn's disease of the ileum She says she feels better this afternoon Abdomen is soft NGT in place She is nontoxic looking Recommendations as per photo editor service Otherwise benign exam but we will continue to follow Keep NG tube in place for now Seen and examined independently <Junito Calhoun MD - Last Filed: 09/27/24 15:31> 54-year-old female with PMH of Crohn's disease on Stelara, hx of right renal carcinoma, obesity, bipolar 2, exercise-induced asthma presenting with several days of abdominal pain, nausea and vomiting with CT scan showing dilated small bowel loops with wall thickening. Clinical picture suggestive of SBO likely secondary to Crohns flare. Would recommend GI consult for IV steroids. Continue supportive measures of bowel rest and decompression with NGT, IVF, pain control. Encouraged OOB/ambulation and increasing activity. Will continue to follow. <Chhaya Barron PA-C - Last Filed: 09/27/24 09:25> Procedures Date of Service Date of Service: 09/27/24 <Chhaya Barron PA-C - Last Filed: 09/27/24 09:25> 09/27/24 <Junito Calhoun MD - Last Filed: 09/27/24 15:31>
--- NOTE | 2024-09-27 09:14 | PHA.MEDREC ---
Addendum entered by Ana Booth RPh 09/27/24 10:31: Med rec was reviewed by Thao. Original Note: Pharmacy Consult ? Medication Reconciliation Pharmacy has completed the medication reconciliation. Patient states she is only taking Stelara 90 mg every 8 weeks. Patients says she is due for a dose now, however she is having issues with her insurance paying for it.
--- NOTE | 2024-09-27 09:27 | P.CNGI_ITS ---
History of Present Illness Data of Consult Service Date: 09/27/24 Requesting physician: Cassie Galeano Primary Care Provider: Cecile Briones MD [facility] Reason for consult: SBO, Crohns flare 54 YF with Crohn's disease diagnosed 1 year ago and being treated with Stelara, right renal carcinoma with partial right kidney removal, endometriosis, partial thyroidectomy, obesity, breast reduction, abdominoplasty, chronic low back pain, vitamin-D deficiency, bipolar 2, exercise-induced asthma seen at [facility] on 09/26/24 after 3 days of progressive abdominal pain and bilateral lower back pain with profuse vomiting and nausea. Patient stated she was camping over the weekend and upon returning Tuesday at approximately 18:30 patient started vomiting - could only tolerate saltine crackers - felt she had the flu. Patient complains of gas and bloating and denies chest pain and shortness of breath at the time. Patient works from home and was able to get through work on Tuesday with continued symptoms. By Tuesday at 10:47 patient's symptoms returned with a vengeance and her vomiting was nonstop (vomitus was like water). 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 Patient's returned home from work at 14:30, noted how patient was doing and patient ultimately decided to go to the emergency department. Patient was worried because of her history of renal carcinoma that she was having a reoccurrence or kidney stones. Patient denies history of gallstones. Pt states she is not passing gas and last BM was on 09/26/24. Pt was started on Stelara in June, and received 3 injections (last injection was on 07/27/24) and additional injections have not been approved by her insurance (I asked GI RN to FU) Pt quitted smoking in 2016 and drinks alcohol socially. 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 Emergency room provider contacted General surgery and asked that patient be admitted under the hospitalist service with an NG-tube placed to low wall suction. Patient will be seen in the morning by General surgery. Patient states she does not take any GLP 1 medications. General labs are stable except for a mild leukocytosis without left shift. Lactic acid is pending. Blood cultures x2 drawn prior to starting ceftriaxone for suspected UTI. NG tube was placed in the emergency department and chest x-ray confirmed proper placement. Upon interviewing patient for admission, NG tube was not attached to low wall suction. Requested that nursing start low wall suction as patient remains symptomatic with significant distention and firmness of the abdomen. Patient was placed on low wall suction with minimal fluids extracted. Patient has been receiving IV narcotics for pain management. 09/26/[address] SCAN SHOWED: 1. Small -bowel obstruction. 2. Distal ileal abnormality possibly related to inflammatory or infectious bowel disease. 3. Hepatic steatosis PAST GI HISTORY BY REVIEW OF MEDICAL RECORDS: Pt is followed in GI by Dr Mcfadden and was last seen in May, 2024 and has a FU appt on 10/01/24 CT Abd/pel without contrast in 10/2021 which was ordered by Urology for lower back pain to r/o urinary obstruction from kidney stone. This showed wall thickening in T.I with prominent vasa recta and lymph nodes. Pt subsequently had blood and stool testing - fecal calopro 1200 with prometheus panel suggestive of IBD but inconclusive for Crohns vs UC. She was then started on budosenide followed by Humira. Humira was stopped in August after she developed generalised body swelling. She was then put on mesalamine and budesonide which she also stopped 3 weeks ago due to a URI. Pt was treated with Infliximab in the past followed by [facility]. Disease and monitoring: Active - secondary non-response to Infliximab-dyyb * Switch to Stelara - will check if PA needed * Dosing: Induction: 520 mg IV one time based on weight followed by maintenance 90mg S/C q8w. * In the meantime, cont Azathioprine 50 mg once daily. Can be stopped once Stelara started as IL-12s not immunogenic. * CBC and LFTs to be checked in 3 months of starting Stelara * Check UST drug and Ab level, CRP and fecal calpro BEFORE 2nd maintenance dose. Nutrition: * Iron studies, B12 and folate normalBone Health: * Normal Vit D and normal DEXA 2023. Health maintenance: * IBD dysplasia screening: N/A * Mammo: uptodate * Pap: uptodate * Sun safety: reviewed Review of Systems 2 Review of Systems: Yes all other systems are reviewed and are negative [facility] Past Medical History Medical History (Updated 09/27/24 @ 00:34 by ANA Diggs) Generalized anxiety disorder Bipolar II disorder with rapid cycling ADHD (attention deficit hyperactivity disorder) Cyclothymia Inflammatory bowel disease History of kidney cancer Dyspepsia Asthma, exercise induced Lipid disorder Bipolar 1 disorder Family history of coronary artery disease Family History Family History Father HTN (hypertension) High cholesterol Colon polyp History of open heart surgery Mother High cholesterol CVD (cardiovascular disease) H/O: hysterectomy Non-Hodgkin lymphoma Maternal Grandfather HTN (hypertension) Myocardial infarction CVD (cardiovascular disease) Maternal Grandmother CVD (cardiovascular disease) HTN (hypertension) Myocardial infarction Breast cancer, Onset Age: 45 Paternal Grandfather Diabetes mellitus Throat cancer Paternal Grandmother Breast cancer Bone cancer Brother No problems noted. Sister Bone cancer HTN (hypertension) Ovarian cancer Non-Hodgkin lymphoma Daughter No problems noted. Daughter No problems noted. Maternal Aunt Breast cancer, Onset Age: 44 Maternal Aunt CVD (cardiovascular disease) Sister Follicular lymphoma Paternal Grandmother Breast cancer Other Mental health disorder Substance use disorder Surgical History Surgical History History of esophagogastroduodenoscopy (EGD) H/O colonoscopy Hx of elbow surgery H/O right nephrectomy Status post breast reduction History of endometrial ablation History of bunionectomy History of tubal ligation History of section Social History Social History Household Members: Spouse Housing: House Do you presently have visiting nurse or other home services: No Comment: medicated with Tylenol 975 mg PO at 1312 Patient Tobacco Use Status: Former Tobacco user Tobacco use type: Cigarette e-Cigarette/Vaping Use: Never Used service: No Current occupational status: employed Current occupation: [employer] Cognitive needs: No Hearing needs: No Vision needs: No Travel History Ebola Risk: Travel/Contact With Anyone From Affected Area/s: No Has Patient Experienced Ebola Symptoms: No Meds Allergies Allergy/AdvReac Type Severity Reaction Status Date / Time lactose [LACTOSE] Allergy Unknown GI UPSET Verified 09/26/24 18:53 latex Allergy Unknown unknown Uncoded 05/21/24 09:30 Active Medications: Current Medications Acetaminophen (Acetaminophen 325 Mg Tablet) 650 mg PO Q6H PRN PRN Reason: Pain, Mild 1-3,fever,headache Albuterol Sulfate (Albuterol Sulfate (0.083%) 2.5 Mg/3 Ml Vial.Neb) 2.5 mg INHALE Q6H PRN PRN Reason: Shortness of Breath/Wheezing Calcium Carbonate (Calcium Carbonate 750 Mg Tab.Chew) 750 mg PO Q4H PRN PRN Reason: Heartburn Ceftriaxone Sodium (Ceftriaxone Sodium 1 Gm Vial) 1 gm IVPUSH Q24H [facility] Last Admin: 09/27/24 01:55 Dose: 1 gm Enoxaparin Sodium (Enoxaparin Sodium 40 Mg/0.4 Ml Syringe) 40 mg SUBCUT Q24H [facility] Last Admin: 09/27/24 01:58 Dose: 40 mg Hydromorphone HCl (Hydromorphone Hcl 1 Mg/Ml Syringe) 1 mg IVPUSH Q4H PRN; Protocol PRN Reason: Pain, Severe (Pain Scale 7-10) Sodium Chloride (Ns) 1,000 mls @ 75 mls/hr IVCONT .[id number] [facility] Last Admin: 09/27/24 02:36 Dose: 75 mls/hr Magnesium Hydroxide (Milk Of Magnesia 30 Ml Oral.Susp) 30 ml PO DAILY PRN PRN Reason: Constipation Ondansetron HCl (Ondansetron Hcl 4 Mg/2 Ml Vial) 4 mg IVPUSH Q8H PRN PRN Reason: Nausea and Vomiting Pantoprazole Sodium (Pantoprazole Sodium 40 Mg/10 Ml Vial) 40 mg IVPUSH BID@0630,1630 [facility] Last Admin: 09/27/24 05:54 Dose: 40 mg Sodium Chloride (0.9 % Sodium Chloride Flush 3 Ml Syringe) 3 ml IVFLUSH QSHIFT [facility] Last Admin: 09/27/24 07:39 Dose: Not Given Home Medications ?Medication ?Instructions ?Recorded ?Confirmed ?Last Taken ?Type ustekinumab 90 mg/mL subcutaneous 90 mg subcut Q8W 09/27/24 09/27/24 Unknown History syringe ([facility]) Physical Exam 2 Vital Signs: Vital Signs: Last Vital Signs Temp 98.5 F 09/27/24 07:40 Pulse 93 09/27/24 07:40 Resp 21 H 09/27/24 07:40 BP 133/84 09/27/24 07:40 Pulse Ox 94 09/27/24 07:40 O2 Del Method Room Air 09/27/24 07:40 BMI result Body Mass Index 36.9 Const: Other: uncomfortable appearing General: no acute distress and alert Orientation/consciousness: patient oriented x3 Resp: Effort & Inspection: normal respiratory effort GI: Inspection: Yes distended and Yes scar (midline scar subxyphoid to infraumbilical) Palpation (GI): Soft to palpation, Tenderness to palpation present (GI) (moderate diffuse tenderness) and no guarding Percussion: Yes tympanic to percussion Skin: General skin exam: no rashes or lesions noted Neuro: General: patient oriented x3 and moves all extremities Results Labs 09/27/24 03:26 09/29/24 06:09 Labs: Short CBC 09/26/24 09/27/24 Range/Units 18:58 03:26 WBC 11.6 H 7.7 (4.8-10.8) X10*3/uL Hgb 15.0 12.9 (12.0-16.0) g/dl Hct 43.8 37.2 (37.0-47.0) % Plt Count 430 H D 335 (160-400) X10*3/uL BMP 09/26/24 09/27/24 18:58 02:24 Sodium 138 138 Potassium 4.4 3.7 Chloride 102 103 Carbon Dioxide 25 25 BUN 12 10 Creatinine 0.70 0.53 Calcium 9.4 8.7 D Liver Function 09/26/24 09/27/24 Range/Units 18:58 02:24 Total Bilirubin 1.0 0.6 (0.0-1.0) mg/dL AST 19 17 (5-31) U/L ALT 24 20 (0-31) U/L Alkaline Phosphatase 79 66 (39-117) U/L Albumin 4.5 3.8 (3.5-5.0) g/dL Urine 09/26/24 Range/Units 21:06 Urine Color Dark Yellow Urine Appearance Clear Urine pH 6.0 (5.0-9.0) Ur Specific [place] 1.025 (1.005-1.025) Urine Protein 30 (1+) H (Neg-Trace) mg/dL Urine Glucose (UA) Negative (Negative) mg/dL Assessment and Plan (1) Small bowel obstruction: Status: Acute (2) Crohn's disease: Status: Acute Plan 54 YF with Crohn's disease diagnosed 1 year ago and being treated with Stelara, right renal carcinoma with partial right kidney removal, endometriosis, partial thyroidectomy, obesity, breast reduction, abdominoplasty, chronic low back pain, vitamin-D deficiency, bipolar 2, exercise-induced asthma admitted to [facility] after 3 days of progressive abdominal pain and bilateral lower back pain with profuse vomiting and nausea. NG tube was placed in the emergency department and chest x-ray confirmed proper placement. Patient has been receiving IV narcotics for pain management. 09/26/[address] SCAN SHOWED: 1. Small -bowel obstruction. 2. Distal ileal abnormality possibly related to inflammatory or infectious bowel disease. 3. Hepatic steatosis RECOMMENDATIONS: 1. Agree with IV pain medications, anti-emetics, bowel rest with NG suction 2. IV steroids 3. Repeat KUB in the am 4. Once pt starts passing gas/having BMs, NG tube can be clamped. Pt has a FU appt with Dr Mcfadden on 10/01/24 Procedures Date of Service Date of Service: 09/30/24
--- NOTE | 2024-09-27 11:13 | MHC.CM.PN ---
Pt. lives with her , Daniel, and he is her HCP, and this is in her EMR. PCP is confirmed: Cecile Briones. Pt. does not have home health services or use DME. to transport home at DC, DCP: home, self care. CM to follow for DC needs.
[2024-09-27] MEDS: HYDROmorphone HCl 1 MG/ML SYRINGE IVPUSH (11:33)
[2024-09-27 13:05] VITALS: BP 122/84; PULSE 93; RESP 20; O2SAT 96
--- NOTE | 2024-09-27 14:46 | PM.EVENT ---
Event Note Date of Service: 09/27/24 Event Note: seen and examined this morning Follow-up for small bowel obstruction due to Crohn's flare Patient is a 54-year-old female with past medical history Crohn's disease diagnosed 1 year prior on Stelara, right renal carcinoma with partial right kidney removal, endometriosis, partial thyroidectomy, obesity, breast reduction, abdominoplasty, chronic low back pain, vitamin-D deficiency, bipolar 2, exercise-induced asthma is being admitted with evidence of small-bowel obstruction and an inflammatory/infectious process related to her chronic Crohn's disease. General surgery asked that patient be admitted under the hospitalist service. Patient will be seen by General surgery in the a.m. and gastroenterology has also been consulted per General surgery. Small-bowel obstruction with history of Crohn's disease, evidence of mesenteric adenopathy likely due to flare of Crohn's disease Continue IV steroids Seen by General surgery, recommend supportive care, NG tube Urinary tract infection urinalysis not suggestive of UTI Urine culture negative Stop antibiotics Atelectasis -Incentive spirometer ordered Lumbar spine pain, chronic outpatient follow-up Exercise-induced asthma -Albuterol p.r.n. -No respiratory concerns at this time Obesity -BMI 36.9, weight loss encouraged MDD/ Bipolar -Patient currently NPO, continue current medication regimen once small-bowel obstruction resolved DVT prophylaxis: Lovenox, held in case pt needs surgical procedure Time Spent With Patient Time: Total time managing care of this patient today ____ minutes.
[2024-09-27 15:41] VITALS: BP 132/82; PULSE 93; RESP 18; TEMP 36.6; O2SAT 96
[2024-09-27] MEDS: 0.9 % Sodium Chloride Flush 3 ML SYRINGE IVFLUSH (15:51)
[2024-09-27] MEDS: methylPREDNISolone Sod Succ 40 MG/ML VIAL 30 MG IVPUSH (15:51)
[2024-09-27 19:24] VITALS: BP 127/71; PULSE 88; RESP 18; TEMP 36.6; O2SAT 96
[2024-09-27 23:35] VITALS: BP 134/72; PULSE 73; RESP 16; TEMP 36.8; O2SAT 95
[2024-09-28] MEDS: 0.9 % Sodium Chloride 1,000 ML 100 ML IVCONT (02:34)
[2024-09-28 03:44] VITALS: BP 137/78; PULSE 83; RESP 16; TEMP 36.3; O2SAT 95
[2024-09-28] MEDS: Pantoprazole Sodium 40 MG/10 ML VIAL IVPUSH ×2 (05:26→16:07)
[2024-09-28] MEDS: methylPREDNISolone Sod Succ 40 MG/ML VIAL 30 MG IVPUSH ×2 (05:27→16:07)
[2024-09-28 07:14] LABS: Anion Gap 14 (12-20); Blood Urea Nitrogen 12 mg/dL (9-16); Calcium 8.7 mg/dL (8.4-10.2); Carbon Dioxide 22 mmol/L (22-29); Chloride 109 mmol/L (96-108); Creatinine Clr Calc Pharmacy 154.4; Estimated Glomerular Filt Rate > 60; Glucose Random 73 mg/dL (60-115); Potassium 3.7 mmol/L (3.3-5.1); Sodium 141 mmol/L (135-145)
[2024-09-28 07:41] VITALS: BP 154/86; PULSE 73; RESP 18; TEMP 36.3; O2SAT 93
--- NOTE | 2024-09-28 08:05 | PM.PNGS ---
Subjective Subjective Date of Service: 09/28/24 <Chhaya Barron PA-C - Last Filed: 09/28/24 08:13> 09/28/24 <Junito Calhoun MD - Last Filed: 09/28/24 13:56> Interval history: Feels improved this morning, less abdominal pain this morning but continues to feel bloated. Denies flatus. Has not been OOB yet. <Chhaya Barron PA-C - Last Filed: 09/28/24 08:13> Physical Exam Vital Signs: Vital Signs: Last Vital Signs Temp 97.4 F 09/28/24 07:41 Pulse 73 09/28/24 07:41 Resp 18 09/28/24 07:41 BP 154/86 H 09/28/24 07:41 Pulse Ox 93 09/28/24 07:41 O2 Del Method Room Air 09/28/24 07:41 BMI result Body Mass Index 36.9 <Chhaya Barron PA-C - Last Filed: 09/28/24 08:13> Const: General: comfortable, no acute distress and alert <Chhaya Barron PA-C - Last Filed: 09/28/24 08:13> Orientation/consciousness: patient oriented x3 <Chhaya Barron PA-C - Last Filed: 09/28/24 08:13> Resp: Effort & Inspection: normal respiratory effort <Chhaya Barron PA-C - Last Filed: 09/28/24 08:13> GI: Other: remains distended and tympanitic but less lower abdominal tenderness on exam, soft <Chhaya Barron PA-C - Last Filed: 09/28/24 08:13> Skin: General skin exam: no rashes or lesions noted <Chhaya Barron PA-C - Last Filed: 09/28/24 08:13> Neuro: General: patient oriented x3 and moves all extremities <KHARI Horan Last Filed: 09/28/24 08:13> Objective Data Active Medications Acetaminophen (Acetaminophen 325 Mg Tablet) 650 mg PO Q6H PRN PRN Reason: Pain, Mild 1-3,fever,headache Albuterol Sulfate (Albuterol Sulfate (0.083%) 2.5 Mg/3 Ml Vial.Neb) 2.5 mg INHALE Q6H PRN PRN Reason: Shortness of Breath/Wheezing Benzocaine (Throat Lozenge, Medicated Lozenge) 1 lozenge MUCOUS MEM Q2H PRN PRN Reason: Sore Throat Calcium Carbonate (Calcium Carbonate 750 Mg Tab.Chew) 750 mg PO Q4H PRN PRN Reason: Heartburn Enoxaparin Sodium (Enoxaparin Sodium 40 Mg/0.4 Ml Syringe) 40 mg SUBCUT Q24H [facility] Last Admin: 09/27/24 01:58 Dose: 40 mg Documented By: LIAN Hydromorphone HCl (Hydromorphone Hcl 1 Mg/Ml Syringe) 1 mg IVPUSH Q4H PRN; Protocol PRN Reason: Pain, Severe (Pain Scale 7-10) Last Admin: 09/27/24 11:33 Dose: 1 mg Documented By: KERVIN Lactated Ringer's (Lr) 1,000 mls @ 100 mls/hr IVCONT .Q10H [facility] Magnesium Hydroxide (Milk Of Magnesia 30 Ml Oral.Susp) 30 ml PO DAILY PRN PRN Reason: Constipation Methylprednisolone Sodium Succinate (Methylprednisolone Sod Succ 40 Mg/Ml Vial) 30 mg IVPUSH Q12H [facility] Last Admin: 09/28/24 05:27 Dose: 30 mg Documented By: EMMA Ondansetron HCl (Ondansetron Hcl 4 Mg/2 Ml Vial) 4 mg IVPUSH Q8H PRN PRN Reason: Nausea and Vomiting Pantoprazole Sodium (Pantoprazole Sodium 40 Mg/10 Ml Vial) 40 mg IVPUSH BID@0630,1630 [facility] Last Admin: 09/28/24 05:26 Dose: 40 mg Documented By: EMMA Sodium Chloride (0.9 % Sodium Chloride Flush 3 Ml Syringe) 3 ml IVFLUSH QSHIFT [facility] Last Admin: 09/28/24 07:05 Dose: Not Given Documented By: RAND Non-Admin Reason: IV Running <Chhaya Barron PA-C - Last Filed: 09/28/24 08:13> Labs CBC & Chem 7: 09/27/24 03:26 09/28/24 06:17 <Chhaya Barron PA-C - Last Filed: 09/28/24 08:13> Labs: Laboratory Results - last 24 hr 09/28/24 06:17 Hold Purple Top SEE NOTE Anion Gap 14 Estim Creat Clear Calc 154.4 Estimated GFR > 60 Random Glucose 73 Calcium 8.7 <Chhaya Barron PA-C - Last Filed: 09/28/24 08:13> Microbiology Microbiology Results: Microbiology 09/27/24 02:24 Blood Culture - Preliminary Blood - Venous No growth after 24 hours. 09/27/24 02:24 Blood Culture - Preliminary Blood - Venous No growth after 24 hours. 09/26/24 22:52 Urine Culture - Final Urine clean catch - Clean Catch Midstream <Chhaya Barron PA-C - Last Filed: 09/28/24 08:13> Procedures Date of Service Date of Service: 09/28/24 <Chhaya Barron PA-C - Last Filed: 09/28/24 08:13> 09/28/24 <Junito Calhoun MD - Last Filed: 09/28/24 13:56> Progress Note: A&P Assessment and plan (1) Small bowel obstruction: Status: Acute <Chhaya Barron PA-C - Last Filed: 09/28/24 08:13> Assessment and Plan: Feels much better this morning Says she does not feel tender No nausea or vomiting Abdomen is soft and benign NG tube removed Should keep on sips and chips only for now We will follow closely <Junito Calhoun MD - Last Filed: 09/28/24 13:56> (2) Crohn's disease: Status: Acute <Chhaya Barron PA-C - Last Filed: 09/28/24 08:13> Assessment and Plan: Admitted for SBO secondary to Crohns flare- long segment of thickened, narrowed ileum on CT. On IV steroids, feels improved this morning with less abdominal pain but remains distended on exam however less tender. NGT scant output since placement. Will clamp for 4 hrs, check residual. Can remove if residual <100cc. Unclamp sooner if develops worsening abd pain, nausea/vomiting. Cont supportive measures for now. Patient comfortable with plan. Encouraged OOB/ambulation and increasing activity. <Chhaya Barron PA-C - Last Filed: 09/28/24 08:13> Time Spent With Patient Time: Total time managing care of this patient today ____ minutes. <Chhaya Barron PA-C - Last Filed: 09/28/24 08:13> Quality Stroke Does the patient have a stroke diagnosis?: No <Chhaya Barron PA-C - Last Filed: 09/28/24 08:13> Reason for No Anti-thrombotic by Day Two: Contraindicated <Chhaya Barron PA-C - Last Filed: 09/28/24 08:13> VTE Prior VTE?: No <Chhaya Barron PA-C - Last Filed: 09/28/24 08:13> VTE Risk Level:: Medical - moderate - high <Chhaya Barron PA-C - Last Filed: 09/28/24 08:13> VTE Device Contraindication: N/A - Device Ordered <KHARI Horan Last Filed: 09/28/24 08:13> VTE Drug Contraindication: N/A - Med Ordered <Chhaya Barron PA-C - Last Filed: 09/28/24 08:13>
[2024-09-28] MEDS: Lactated Ringers 1,000 ML 100 ML IVCONT ×2 (09:09→18:20)
--- NOTE | 2024-09-28 11:01 | MHC.CM.PN ---
Per MD rounds patient not medically cleared for dc. CM will continue to follow.
[2024-09-28 11:32] VITALS: BP 130/81; PULSE 71; RESP 16; TEMP 36.5; O2SAT 93
--- NOTE | 2024-09-28 13:57 | PM.EVENT ---
Event Note Date of Service: 09/28/24 Event Note: F/u AXR shows contrast in colon. NGT residual checked around 1300 with scant drainage. She denies abdominal pain, nausea or vomiting. Abd distention felt improved. NGT therefore removed. Cont ice chips, small sips for now until evidence of GI function. Encouraged increasing activity. Patient comfortable with plan. Time Spent With Patient Time: Total time managing care of this patient today ____ minutes.
[2024-09-28 15:58] VITALS: BP 129/79; PULSE 76; RESP 18; TEMP 36.2; O2SAT 95
--- NOTE | 2024-09-28 16:49 | HO.PM.IMPN ---
Subjective Subjective Date of Service: 09/28/24 Interval History: seen and examined this morning follow up for SBO abdominal pain improving, not passing gas Review of Systems Review of Systems: Yes all other systems are reviewed and are negative Constitutional Constitutional: Denies chills and Denies fever(s) Cardiovascular Cardiovascular: Denies chest pain, Denies palpitations and Denies dyspnea Respiratory Respiratory: Denies cough and Denies dyspnea Gastrointestinal Gastrointestinal: Denies abdominal pain, Denies nausea and Denies vomiting Endocrine Endocrine: Denies palpitations Physical Exam Vital Signs: Vital Signs: Last Vital Signs Temp 97.2 F 09/28/24 15:58 Pulse 76 09/28/24 15:58 Resp 18 09/28/24 15:58 BP 129/79 09/28/24 15:58 Pulse Ox 95 09/28/24 15:58 O2 Del Method Room Air 09/28/24 15:58 BMI result Body Mass Index 36.9 GI: Other: softly distended Palpation (GI): Soft to palpation and nontender Neuro: General: moves all extremities and CN's II-XI intact bilaterally Extrem: General: Yes no pedal edema Objective Data Active Medications Acetaminophen (Acetaminophen 325 Mg Tablet) 650 mg PO Q6H PRN PRN Reason: Pain, Mild 1-3,fever,headache Albuterol Sulfate (Albuterol Sulfate (0.083%) 2.5 Mg/3 Ml Vial.Neb) 2.5 mg INHALE Q6H PRN PRN Reason: Shortness of Breath/Wheezing Benzocaine (Throat Lozenge, Medicated Lozenge) 1 lozenge MUCOUS MEM Q2H PRN PRN Reason: Sore Throat Calcium Carbonate (Calcium Carbonate 750 Mg Tab.Chew) 750 mg PO Q4H PRN PRN Reason: Heartburn Enoxaparin Sodium (Enoxaparin Sodium 40 Mg/0.4 Ml Syringe) 40 mg SUBCUT Q24H [facility] Last Admin: 09/27/24 01:58 Dose: 40 mg Documented By: LIAN Hydromorphone HCl (Hydromorphone Hcl 1 Mg/Ml Syringe) 1 mg IVPUSH Q4H PRN; Protocol PRN Reason: Pain, Severe (Pain Scale 7-10) Last Admin: 09/27/24 11:33 Dose: 1 mg Documented By: HO.KONSEWA Lactated Ringer's (Lr) 1,000 mls @ 100 mls/hr IVCONT .Q10H [facility] Last Admin: 09/28/24 09:09 Dose: 100 mls/hr Documented By: RAND Magnesium Hydroxide (Milk Of Magnesia 30 Ml Oral.Susp) 30 ml PO DAILY PRN PRN Reason: Constipation Methylprednisolone Sodium Succinate (Methylprednisolone Sod Succ 40 Mg/Ml Vial) 30 mg IVPUSH Q12H [facility] Last Admin: 09/28/24 16:07 Dose: 30 mg Documented By: RAND Ondansetron HCl (Ondansetron Hcl 4 Mg/2 Ml Vial) 4 mg IVPUSH Q8H PRN PRN Reason: Nausea and Vomiting Pantoprazole Sodium (Pantoprazole Sodium 40 Mg/10 Ml Vial) 40 mg IVPUSH BID@0630,1630 [facility] Last Admin: 09/28/24 16:07 Dose: 40 mg Documented By: RAND Sodium Chloride (0.9 % Sodium Chloride Flush 3 Ml Syringe) 3 ml IVFLUSH QSHIFT [facility] Last Admin: 09/28/24 15:38 Dose: Not Given Documented By: RAND Non-Admin Reason: IV Running Labs 09/27/24 03:26 09/28/24 06:17 Labs: Laboratory Results - last 24 hr 09/28/24 06:17 Hold Purple Top SEE NOTE Anion Gap 14 Estim Creat Clear Calc 154.4 Estimated GFR > 60 Random Glucose 73 Calcium 8.7 Microbiology Microbiology Results: Microbiology 09/27/24 02:24 Blood Culture - Preliminary Blood - Venous No growth after 24 hours. 09/27/24 02:24 Blood Culture - Preliminary Blood - Venous No growth after 24 hours. Assessment and Plan (1) Small bowel obstruction: Status: Acute Plan This is a 54-year-old female with past medical history Crohn's disease diagnosed 1 year prior on [facility], right renal carcinoma with partial right kidney removal, endometriosis, partial thyroidectomy, obesity, breast reduction, abdominoplasty, chronic low back pain, vitamin-D deficiency, bipolar 2, exercise-induced asthma who presented with abdominal pain found to have small-bowel obstruction Small-bowel obstruction likely due to flare of Crohn's disease Continue IV steroids surgery following, NGT clamped and subsequently removed this afternoon abdominal pain improving Urinary tract infection urinalysis not suggestive of UTI Urine culture negative Stop antibiotics Atelectasis IS no hypoxia Lumbar spine pain, chronic outpatient follow-up Exercise-induced asthma Albuterol p.r.n. Obesity BMI 36.9, weight loss encouraged MDD/ Bipolar no meds on med rec DVT prophylaxis: mechanical devices patient requires ongoing inpatient stay for management of small-bowel obstruction requiring serial abdominal exams, close monitoring, specialist evaluation, IV fluid Quality Stroke Does the patient have a stroke diagnosis?: No Reason for No Anti-thrombotic by Day Two: Contraindicated VTE Prior VTE?: No VTE Risk Level:: Medical - moderate - high VTE Device Contraindication: N/A - Device Ordered VTE Drug Contraindication: N/A - Med Ordered
--- NOTE | 2024-09-28 16:59 | P.CDIM_ITS ---
PROVIDER RESPONSE TEXT: To clarify, the appropriate diagnosis supported by the clinical indicators: Small bowel obstruction: likely complete QUERY TEXT: PHYSICIAN'S DOCUMENTATION REQUEST Date of Query: 09/28/2024 10:11 AM EDT Patient Name: Shayy Laird Admit Date: 09/27/2024 Dear Ciera Tavarez PA, A review of the medical record indicates additional documentation may be needed. Please review below and update the documentation accordingly. Clinical Indicators: Admitted for SBO secondary to Crohn's flare - long segment of thickened, narrowed ileum on CT. Small-bowel obstruction, evidence of mesenteric adenopathy. Continue IV Steroids. Seen by General surgery, recommend supportive care, NG tube. Based on the above, could you clarify specifics to the documented SBO: Small bowel obstruction partial, incomplete, complete, neurogenic, duodenal, volvulus etc. Other specified Other (explain) Clinically unable to determine (explain) Thank you, Vandana Ward, CCS, CDIS Use of terms such as suspected, likely, concern for, or probable (associated with a specific diagnosi s that is being evaluated, monitored, or treated as if it exists) are acceptable and can be coded in the inpatient se tting, when documented at the time of discharge. Please use your independent medical judgment in providing your response. THIS QUERY IS PART OF THE PERMANENT MEDICAL RECORD
[2024-09-28 19:43] VITALS: BP 135/85; PULSE 80; RESP 18; TEMP 36.2; O2SAT 95
[2024-09-28] MEDS: 0.9 % Sodium Chloride Flush 3 ML SYRINGE IVFLUSH (21:26)
[2024-09-28] MEDS: Acetaminophen 325 MG TABLET 650 MG PO (21:29)
[2024-09-28 23:38] VITALS: BP 116/76; PULSE 72; RESP 18; TEMP 36.3; O2SAT 96
[2024-09-29] MEDS: Lactated Ringers 1,000 ML 100 ML IVCONT (03:34)
[2024-09-29] MEDS: methylPREDNISolone Sod Succ 40 MG/ML VIAL 30 MG IVPUSH ×2 (03:35→15:48)
[2024-09-29 03:40] VITALS: BP 135/83; PULSE 70; RESP 18; TEMP 36.1; O2SAT 97
[2024-09-29] MEDS: Pantoprazole Sodium 40 MG/10 ML VIAL IVPUSH (06:17)
[2024-09-29 06:47] LABS: Anion Gap 11 (12-20); Blood Urea Nitrogen 8 mg/dL (9-16); Calcium 9.5 mg/dL (8.4-10.2); Carbon Dioxide 27 mmol/L (22-29); Chloride 108 mmol/L (96-108); Creatinine Clr Calc Pharmacy 141.1; Estimated Glomerular Filt Rate > 60; Glucose Random 110 mg/dL (60-115); Sodium 142 mmol/L (135-145)
[2024-09-29 07:18] VITALS: BP 122/92; PULSE 63; RESP 16; TEMP 36; O2SAT 97
--- NOTE | 2024-09-29 09:56 | PM.PNGS ---
Subjective Subjective Date of Service: 09/29/24 Interval history: feels much better pain much improved no nausea passing flatus says she is hungry Physical Exam Vital Signs: Vital Signs: Last Vital Signs Temp 96.8 F 09/29/24 07:18 Pulse 63 09/29/24 07:18 Resp 16 09/29/24 07:18 BP 122/92 H 09/29/24 07:18 Pulse Ox 97 09/29/24 07:18 O2 Del Method Room Air 09/29/24 07:18 BMI result Body Mass Index 36.9 Const: General: comfortable and no acute distress Resp: Effort & Inspection: normal respiratory effort Cardio: Rate: regular rate GI: Palpation (GI): Soft to palpation, not firm, nontender and no guarding Objective Data Active Medications Acetaminophen (Acetaminophen 325 Mg Tablet) 650 mg PO Q6H PRN PRN Reason: Pain, Mild 1-3,fever,headache Last Admin: 09/28/24 21:29 Dose: 650 mg Documented By: NATALIE Albuterol Sulfate (Albuterol Sulfate (0.083%) 2.5 Mg/3 Ml Vial.Neb) 2.5 mg INHALE Q6H PRN PRN Reason: Shortness of Breath/Wheezing Benzocaine (Throat Lozenge, Medicated Lozenge) 1 lozenge MUCOUS MEM Q2H PRN PRN Reason: Sore Throat Calcium Carbonate (Calcium Carbonate 750 Mg Tab.Chew) 750 mg PO Q4H PRN PRN Reason: Heartburn Hydromorphone HCl (Hydromorphone Hcl 1 Mg/Ml Syringe) 1 mg IVPUSH Q4H PRN; Protocol PRN Reason: Pain, Severe (Pain Scale 7-10) Last Admin: 09/27/24 11:33 Dose: 1 mg Documented By: KERVIN Lactated Ringer's (Lr) 1,000 mls @ 100 mls/hr IVCONT .Q10H [facility] Last Admin: 09/29/24 03:34 Dose: 100 mls/hr Documented By: NATALIE Magnesium Hydroxide (Milk Of Magnesia 30 Ml Oral.Susp) 30 ml PO DAILY PRN PRN Reason: Constipation Methylprednisolone Sodium Succinate (Methylprednisolone Sod Succ 40 Mg/Ml Vial) 30 mg IVPUSH Q12H [facility] Last Admin: 09/29/24 03:35 Dose: 30 mg Documented By: NATALIE Ondansetron HCl (Ondansetron Hcl 4 Mg/2 Ml Vial) 4 mg IVPUSH Q8H PRN PRN Reason: Nausea and Vomiting Pantoprazole Sodium (Pantoprazole Sodium 40 Mg/10 Ml Vial) 40 mg IVPUSH DAILY@0630 [facility] Last Admin: 09/29/24 06:17 Dose: 40 mg Documented By: NATALIE Sodium Chloride (0.9 % Sodium Chloride Flush 3 Ml Syringe) 3 ml IVFLUSH QSHIFT [facility] Last Admin: 09/29/24 08:39 Dose: Not Given Documented By: SAL Non-Admin Reason: IV Running Labs 09/27/24 03:26 09/29/24 06:09 Labs: Laboratory Results - last 24 hr 09/29/24 06:09 Hold Purple Top SEE NOTE Anion Gap 11 L Estim Creat Clear Calc 141.1 Estimated GFR > 60 Random Glucose 110 Calcium 9.5 D Microbiology Microbiology Results: Microbiology 09/27/24 02:24 Blood Culture - Preliminary Blood - Venous No growth after 48 hours. 09/27/24 02:24 Blood Culture - Preliminary Blood - Venous No growth after 48 hours. Procedures Date of Service Date of Service: 09/29/24 Progress Note: A&P Assessment and plan (1) Crohn's disease: Status: Acute Assessment and Plan: with PSBO much improved given IV steroids ok to start clear liquids continue current care encouraged ambulation Time Spent With Patient Time: Total time managing care of this patient today ____ minutes. Quality Stroke Does the patient have a stroke diagnosis?: No Reason for No Anti-thrombotic by Day Two: Contraindicated VTE Prior VTE?: No VTE Risk Level:: Medical - moderate - high VTE Device Contraindication: N/A - Device Ordered VTE Drug Contraindication: N/A - Med Ordered
[2024-09-29 11:43] VITALS: BP 128/86; PULSE 67; RESP 18; TEMP 36; O2SAT 93
--- NOTE | 2024-09-29 14:54 | HO.PM.IMPN ---
Subjective Subjective Date of Service: 09/29/24 Interval History: seen and examined this morning follow up for SBO had BM, passing gas; diet advanced to clears this am Review of Systems Review of Systems: Yes all other systems are reviewed and are negative Constitutional Constitutional: Denies chills and Denies fever(s) Cardiovascular Cardiovascular: Denies chest pain, Denies palpitations and Denies dyspnea Respiratory Respiratory: Denies cough and Denies dyspnea Gastrointestinal Gastrointestinal: Denies abdominal pain, Denies nausea and Denies vomiting Endocrine Endocrine: Denies palpitations Physical Exam Vital Signs: Vital Signs: Last Vital Signs Temp 96.8 F 09/29/24 11:43 Pulse 67 09/29/24 11:43 Resp 18 09/29/24 11:43 BP 128/86 09/29/24 11:43 Pulse Ox 93 09/29/24 11:43 O2 Del Method Room Air 09/29/24 11:43 BMI result Body Mass Index 36.9 Const: General: cooperative, comfortable, no acute distress, alert and awake Nutritional Appearance: obese Orientation/consciousness: patient oriented x3 Resp: Effort & Inspection: normal respiratory effort, able to speak in complete sentences, no respiratory distress and no use of accessory muscles Cardio: Rate: regular rate GI: Other: softly distended Palpation (GI): Soft to palpation and nontender Neuro: General: patient oriented x3, moves all extremities and CN's II-XI intact bilaterally Extrem: General: Yes no pedal edema Objective Data Active Medications Acetaminophen (Acetaminophen 325 Mg Tablet) 650 mg PO Q6H PRN PRN Reason: Pain, Mild 1-3,fever,headache Last Admin: 09/28/24 21:29 Dose: 650 mg Documented By: NATALIE Albuterol Sulfate (Albuterol Sulfate (0.083%) 2.5 Mg/3 Ml Vial.Neb) 2.5 mg INHALE Q6H PRN PRN Reason: Shortness of Breath/Wheezing Benzocaine (Throat Lozenge, Medicated Lozenge) 1 lozenge MUCOUS MEM Q2H PRN PRN Reason: Sore Throat Calcium Carbonate (Calcium Carbonate 750 Mg Tab.Chew) 750 mg PO Q4H PRN PRN Reason: Heartburn Hydromorphone HCl (Hydromorphone Hcl 1 Mg/Ml Syringe) 1 mg IVPUSH Q4H PRN; Protocol PRN Reason: Pain, Severe (Pain Scale 7-10) Last Admin: 09/27/24 11:33 Dose: 1 mg Documented By: KERVIN Magnesium Hydroxide (Milk Of Magnesia 30 Ml Oral.Susp) 30 ml PO DAILY PRN PRN Reason: Constipation Methylprednisolone Sodium Succinate (Methylprednisolone Sod Succ 40 Mg/Ml Vial) 30 mg IVPUSH Q12H [facility] Last Admin: 09/29/24 03:35 Dose: 30 mg Documented By: NATALIE Ondansetron HCl (Ondansetron Hcl 4 Mg/2 Ml Vial) 4 mg IVPUSH Q8H PRN PRN Reason: Nausea and Vomiting Pantoprazole Sodium (Pantoprazole Sodium 40 Mg/10 Ml Vial) 40 mg IVPUSH DAILY@0630 [facility] Last Admin: 09/29/24 06:17 Dose: 40 mg Documented By: NATALIE Sodium Chloride (0.9 % Sodium Chloride Flush 3 Ml Syringe) 3 ml IVFLUSH QSHIFT [facility] Last Admin: 09/29/24 08:39 Dose: Not Given Documented By: SAL Non-Admin Reason: IV Running Labs 09/27/24 03:26 09/29/24 06:09 Labs: Laboratory Results - last 24 hr 09/29/24 06:09 Hold Purple Top SEE NOTE Anion Gap 11 L Estim Creat Clear Calc 141.1 Estimated GFR > 60 Random Glucose 110 Calcium 9.5 D Microbiology Microbiology Results: Microbiology 09/27/24 02:24 Blood Culture - Preliminary Blood - Venous No growth after 48 hours. 09/27/24 02:24 Blood Culture - Preliminary Blood - Venous No growth after 48 hours. Assessment and Plan (1) Small bowel obstruction: Status: Acute Plan This is a 54-year-old female with past medical history Crohn's disease diagnosed 1 year prior on St[facility], right renal carcinoma with partial right kidney removal, endometriosis, partial thyroidectomy, obesity, breast reduction, abdominoplasty, chronic low back pain, vitamin-D deficiency, bipolar 2, exercise-induced asthma who presented with abdominal pain found to have small-bowel obstruction Small-bowel obstruction likely due to flare of Crohn's disease NGT removed 09/28 pain improving, having BM; diet advanced to clear liquids d/c IVF Continue IV steroids - will need to be discharged with 4 week taper of prednisone starting with 40 mg daily and tapering by 10mg/week Urinary tract infection urinalysis not suggestive of UTI Urine culture negative Stop antibiotics Atelectasis IS; no hypoxia Lumbar spine pain, chronic outpatient follow-up Exercise-induced asthma Albuterol p.r.n. Obesity BMI 36.9, weight loss encouraged MDD/ Bipolar no meds on med rec DVT prophylaxis: mechanical devices patient requires ongoing inpatient stay for management of small-bowel obstruction requiring serial abdominal exams, close monitoring, specialist evaluation, IV fluid Quality Stroke Does the patient have a stroke diagnosis?: No Reason for No Anti-thrombotic by Day Two: Contraindicated VTE Prior VTE?: No VTE Risk Level:: Medical - moderate - high VTE Device Contraindication: N/A - Device Ordered VTE Drug Contraindication: N/A - Med Ordered
[2024-09-29 15:28] VITALS: BP 139/87; PULSE 73; RESP 17; TEMP 36.2; O2SAT 94
[2024-09-29] MEDS: 0.9 % Sodium Chloride Flush 3 ML SYRINGE IVFLUSH ×2 (15:52→19:41)
[2024-09-29] MEDS: Milk of Magnesia 30 ML ORAL.SUSP PO (15:57)
--- NOTE | 2024-09-29 17:28 | PC.NURSE ---
Patient complained of increased bloating, abdomen appears more round and semi firm compared to earlier assessments. Patient denies nausea/vomiting, but has increased cramping. Consuming liquid diet. Messaged provider, Trina Tavarez, via [employer] and informed her of new assessment. Provider ordered diet NPO, patient educated. Hat placed in toilet to better monitor stool amounts. Patient verbalized understanding.
[2024-09-29 19:09] VITALS: BP 136/89; PULSE 75; RESP 15; TEMP 36.6; O2SAT 95
[2024-09-29 23:20] VITALS: BP 122/84; PULSE 71; RESP 16; TEMP 36.6; O2SAT 96
[2024-09-30] MEDS: Lactulose 20 GM/30 ML SOLUTION 30 GM PO (00:57)
[2024-09-30] MEDS: Simethicone 80 MG TAB.CHEW 160 MG PO (00:57)
--- NOTE | 2024-09-30 01:03 | PC.NURSE ---
Addendum entered by Yanique Oquendo RN 09/30/24 06:49: patient started passing gas and had a moderate liquid BM. Original Note: Patient moved a scant amount of liquid stool and states feels like need to move more. Gassy stomach, no pain or nausea. MOM was given on previous shift. Patient is asking if it's possible to get another Laxative. Dr Maldonado notified and ordered single doses of Lactulose and Simethicone. Will continue to monitor.
[2024-09-30 03:17] VITALS: BP 131/79; PULSE 73; RESP 17; TEMP 36.4; O2SAT 96
[2024-09-30] MEDS: methylPREDNISolone Sod Succ 40 MG/ML VIAL 30 MG IVPUSH ×2 (04:31→16:28)
[2024-09-30] MEDS: Pantoprazole Sodium 40 MG/10 ML VIAL IVPUSH (06:32)
[2024-09-30 08:00] VITALS: BP 127/87; PULSE 70; RESP 18; TEMP 36.3; O2SAT 96
[2024-09-30 12:00] VITALS: BP 136/82; PULSE 72; RESP 18; TEMP 36.2; O2SAT 96
--- NOTE | 2024-09-30 12:27 | P.PNIM_ITS ---
Subjective Subjective Date of Service: 09/30/24 Interval History: Seen and examined this morning Follow-up for small bowel obstruction Yesterday afternoon patient felt more bloated, diet was resumed back to NPO Patient had bowel movement and lots of gas overnight, feeling better. will resume clear liquids Review of Systems Review of Systems: Yes all other systems are reviewed and are negative Constitutional Constitutional: Denies chills and Denies fever(s) Cardiovascular Cardiovascular: Denies chest pain and Denies dyspnea Respiratory Respiratory: Denies cough and Denies dyspnea Gastrointestinal Gastrointestinal: Reports abdominal pain, Denies nausea and Denies vomiting Physical Exam 2 Vital Signs: Vital Signs: Last Vital Signs Temp 97.2 F 09/30/24 12:00 Pulse 72 09/30/24 12:00 Resp 18 09/30/24 12:00 BP 136/82 09/30/24 12:00 Pulse Ox 96 09/30/24 12:00 O2 Del Method Room Air 09/30/24 12:00 BMI result Body Mass Index 36.9 Const: General: cooperative, comfortable, no acute distress, alert and awake Nutritional Appearance: obese Orientation/consciousness: patient oriented x3 Resp: Effort & Inspection: normal respiratory effort, able to speak in complete sentences, no respiratory distress and no use of accessory muscles Cardio: Rate: regular rate GI: Other: softly distended Palpation (GI): Soft to palpation and nontender Neuro: General: patient oriented x3, moves all extremities and CN's II-XI intact bilaterally Extrem: General: Yes no pedal edema Objective Data Active Medications Acetaminophen (Acetaminophen 325 Mg Tablet) 650 mg PO Q6H PRN PRN Reason: Pain, Mild 1-3,fever,headache Last Admin: 09/28/24 21:29 Dose: 650 mg Documented By: NATALIE Albuterol Sulfate (Albuterol Sulfate (0.083%) 2.5 Mg/3 Ml Vial.Neb) 2.5 mg INHALE Q6H PRN PRN Reason: Shortness of Breath/Wheezing Benzocaine (Throat Lozenge, Medicated Lozenge) 1 lozenge MUCOUS MEM Q2H PRN PRN Reason: Sore Throat Hydromorphone HCl (Hydromorphone Hcl 1 Mg/Ml Syringe) 1 mg IVPUSH Q4H PRN; Protocol PRN Reason: Pain, Severe (Pain Scale 7-10) Last Admin: 09/27/24 11:33 Dose: 1 mg Documented By: KERVIN Magnesium Hydroxide (Milk Of Magnesia 30 Ml Oral.Susp) 30 ml PO DAILY PRN PRN Reason: Constipation Last Admin: 09/29/24 15:57 Dose: 30 ml Documented By: SAL Methylprednisolone Sodium Succinate (Methylprednisolone Sod Succ 40 Mg/Ml Vial) 30 mg IVPUSH Q12H [facility] Last Admin: 09/30/24 04:31 Dose: 30 mg Documented By: NATALIE Ondansetron HCl (Ondansetron Hcl 4 Mg/2 Ml Vial) 4 mg IVPUSH Q8H PRN PRN Reason: Nausea and Vomiting Pantoprazole Sodium (Pantoprazole Sodium 40 Mg/10 Ml Vial) 40 mg IVPUSH DAILY@06 [facility] Last Admin: 09/30/24 06:32 Dose: 40 mg Documented By: NATALIE Sodium Chloride (0.9 % Sodium Chloride Flush 3 Ml Syringe) 3 ml IVFLUSH QSHIFT [facility] Last Admin: 09/30/24 10:07 Dose: Not Given Documented By: SAL Non-Admin Reason: Not In Room Labs 09/27/24 03:26 09/29/24 06:09 Assessment and Plan (1) Small bowel obstruction: Status: Acute Plan This is a 54-year-old female with past medical history Crohn's disease diagnosed 1 year prior on [facility], right renal carcinoma with partial right kidney removal, endometriosis, partial thyroidectomy, obesity, breast reduction, abdominoplasty, chronic low back pain, vitamin-D deficiency, bipolar 2, exercise-induced asthma who presented with abdominal pain found to have small-bowel obstruction Small-bowel obstruction likely due to flare of Crohn's disease NGT removed 09/28 pain improving, having BM; diet advanced to clears 09/29 but then felt more bloated, NPO overnight feel better this am, KUB unchanged, resume clears d/c IVF Continue IV steroids - will need to be discharged with 4 week taper of prednisone starting with 40 mg daily and tapering by 10mg/week Urinary tract infection urinalysis not suggestive of UTI Urine culture negative Stop antibiotics Atelectasis IS; no hypoxia Lumbar spine pain, chronic outpatient follow-up Exercise-induced asthma Albuterol p.r.n. Obesity BMI 36.9, weight loss encouraged MDD/ Bipolar no meds on med rec DVT prophylaxis: mechanical devices patient requires ongoing inpatient stay for management of small-bowel obstruction requiring serial abdominal exams, close monitoring, specialist evaluation, IV fluid Quality Stroke Does the patient have a stroke diagnosis?: No Reason for No Anti-thrombotic by Day Two: Contraindicated VTE Prior VTE?: No VTE Risk Level:: Medical - moderate - high VTE Device Contraindication: N/A - Device Ordered VTE Drug Contraindication: N/A - Med Ordered
--- NOTE | 2024-09-30 14:31 | P.PNGS_ITS ---
Subjective Subjective Date of Service: 09/30/24 Interval history: Had some bloating last night Tolerating clear liquids again today Passing flatus and BMs Denies abdominal pain Physical Exam 2 Vital Signs: Vital Signs: Last Vital Signs Temp 97.2 F 09/30/24 12:00 Pulse 72 09/30/24 12:00 Resp 18 09/30/24 12:00 BP 136/82 09/30/24 12:00 Pulse Ox 96 09/30/24 12:00 O2 Del Method Room Air 09/30/24 12:00 BMI result Body Mass Index 36.9 Const: General: comfortable and no acute distress Resp: Effort & Inspection: normal respiratory effort Cardio: Rate: regular rate GI: Palpation (GI): Soft to palpation, not firm, nontender and no guarding Objective Data Active Medications Acetaminophen (Acetaminophen 325 Mg Tablet) 650 mg PO Q6H PRN PRN Reason: Pain, Mild 1-3,fever,headache Last Admin: 09/28/24 21:29 Dose: 650 mg Documented By: NATALIE Albuterol Sulfate (Albuterol Sulfate (0.083%) 2.5 Mg/3 Ml Vial.Neb) 2.5 mg INHALE Q6H PRN PRN Reason: Shortness of Breath/Wheezing Benzocaine (Throat Lozenge, Medicated Lozenge) 1 lozenge MUCOUS MEM Q2H PRN PRN Reason: Sore Throat Hydromorphone HCl (Hydromorphone Hcl 1 Mg/Ml Syringe) 1 mg IVPUSH Q4H PRN; Protocol PRN Reason: Pain, Severe (Pain Scale 7-10) Last Admin: 09/27/24 11:33 Dose: 1 mg Documented By: KERVIN Magnesium Hydroxide (Milk Of Magnesia 30 Ml Oral.Susp) 30 ml PO DAILY PRN PRN Reason: Constipation Last Admin: 09/29/24 15:57 Dose: 30 ml Documented By: BURJose D Methylprednisolone Sodium Succinate (Methylprednisolone Sod Succ 40 Mg/Ml Vial) 30 mg IVPUSH Q12H [facility] Last Admin: 09/30/24 04:31 Dose: 30 mg Documented By: NATALIE Ondansetron HCl (Ondansetron Hcl 4 Mg/2 Ml Vial) 4 mg IVPUSH Q8H PRN PRN Reason: Nausea and Vomiting Pantoprazole Sodium (Pantoprazole Sodium 40 Mg/10 Ml Vial) 40 mg IVPUSH DAILY@0630 [facility] Last Admin: 09/30/24 06:32 Dose: 40 mg Documented By: NATALIE Sodium Chloride (0.9 % Sodium Chloride Flush 3 Ml Syringe) 3 ml IVFLUSH QSHIFT [facility] Last Admin: 09/30/24 10:07 Dose: Not Given Documented By: SAL Non-Admin Reason: Not In Room Labs 09/27/24 03:26 09/29/24 06:09 Procedures Date of Service Date of Service: 09/30/24 Progress Note: A&P Assessment and plan (1) Small bowel obstruction: Status: Acute Assessment and Plan: Likely from her Crohn's disease Appears to have good GI functions Passing flatus and BMs On clear liquids currently Okay to advance diet slowly as tolerated She wants to see Dr. Mcfadden while she is in the hospital She had been on Stelara for her Crohn's disease Time Spent With Patient Time: Total time managing care of this patient today ____ minutes. Quality Stroke Does the patient have a stroke diagnosis?: No Reason for No Anti-thrombotic by Day Two: Contraindicated VTE Prior VTE?: No VTE Risk Level:: Medical - moderate - high VTE Device Contraindication: N/A - Device Ordered VTE Drug Contraindication: N/A - Med Ordered
[2024-09-30 15:45] VITALS: BP 134/85; PULSE 71; RESP 18; TEMP 36.1; O2SAT 98
[2024-09-30] MEDS: 0.9 % Sodium Chloride Flush 3 ML SYRINGE IVFLUSH ×2 (16:28→22:36)
[2024-09-30 20:00] VITALS: BP 155/91; PULSE 76; RESP 16; TEMP 36.2; O2SAT 98
[2024-09-30 23:27] VITALS: BP 150/96; PULSE 81; RESP 18; TEMP 36.4; O2SAT 97
[2024-10-01 03:42] VITALS: BP 128/66; PULSE 65; RESP 16; TEMP 36.1; O2SAT 97
[2024-10-01] MEDS: methylPREDNISolone Sod Succ 40 MG/ML VIAL 30 MG IVPUSH (04:33)
[2024-10-01] MEDS: Pantoprazole Sodium 40 MG/10 ML VIAL IVPUSH (06:21)
[2024-10-01 06:49] VITALS: BP 138/76; PULSE 62; RESP 16; TEMP 36.6; O2SAT 95
--- NOTE | 2024-10-01 07:39 | P.PNGS_ITS ---
Subjective Subjective Date of Service: 10/01/24 <Chhaya Barron PA-C - Last Filed: 10/01/24 07:41> 10/01/24 <Junito Calhoun MD - Last Filed: 10/01/24 09:55> Interval history: Feels well. Denies any abd pain, reports very mild discomfort with lying flat. Tolerating clear liquids and feels hungry. Passing flatus and moving bowels. <Chhaya Barron PA-C - Last Filed: 10/01/24 07:41> Physical Exam 2 Vital Signs: Vital Signs: Last Vital Signs Temp 98 F 10/01/24 06:49 Pulse 62 10/01/24 06:49 Resp 16 10/01/24 06:49 BP 138/76 10/01/24 06:49 Pulse Ox 95 10/01/24 06:49 O2 Del Method Room Air 10/01/24 06:49 BMI result Body Mass Index 36.9 <Chhaya Barron PA-C - Last Filed: 10/01/24 07:41> Const: General: comfortable, no acute distress and alert <Chhaya Barron PA-C - Last Filed: 10/01/24 07:41> Resp: Effort & Inspection: normal respiratory effort <KHARI Horan Last Filed: 10/01/24 07:41> GI: Inspection: Yes distended (mild) <Chhaya Barron PA-C - Last Filed: 10/01/24 07:41> Palpation (GI): Soft to palpation, nontender and no guarding <Chhaya Barron PA-C - Last Filed: 10/01/24 07:41> Skin: General skin exam: no rashes or lesions noted <KHARI Horan Last Filed: 10/01/24 07:41> Objective Data Active Medications Acetaminophen (Acetaminophen 325 Mg Tablet) 650 mg PO Q6H PRN PRN Reason: Pain, Mild 1-3,fever,headache Last Admin: 09/28/24 21:29 Dose: 650 mg Documented By: NATALIE Albuterol Sulfate (Albuterol Sulfate (0.083%) 2.5 Mg/3 Ml Vial.Neb) 2.5 mg INHALE Q6H PRN PRN Reason: Shortness of Breath/Wheezing Benzocaine (Throat Lozenge, Medicated Lozenge) 1 lozenge MUCOUS MEM Q2H PRN PRN Reason: Sore Throat Hydromorphone HCl (Hydromorphone Hcl 1 Mg/Ml Syringe) 1 mg IVPUSH Q4H PRN; Protocol PRN Reason: Pain, Severe (Pain Scale 7-10) Last Admin: 09/27/24 11:33 Dose: 1 mg Documented By: KERVIN Magnesium Hydroxide (Milk Of Magnesia 30 Ml Oral.Susp) 30 ml PO DAILY PRN PRN Reason: Constipation Last Admin: 09/29/24 15:57 Dose: 30 ml Documented By: SAL Methylprednisolone Sodium Succinate (Methylprednisolone Sod Succ 40 Mg/Ml Vial) 30 mg IVPUSH Q12H [facility] Last Admin: 10/01/24 04:33 Dose: 30 mg Documented By: GUZMAN Ondansetron HCl (Ondansetron Hcl 4 Mg/2 Ml Vial) 4 mg IVPUSH Q8H PRN PRN Reason: Nausea and Vomiting Pantoprazole Sodium (Pantoprazole Sodium 40 Mg/10 Ml Vial) 40 mg IVPUSH DAILY@0630 [facility] Last Admin: 10/01/24 06:21 Dose: 40 mg Documented By: GUZMAN Sodium Chloride (0.9 % Sodium Chloride Flush 3 Ml Syringe) 3 ml IVFLUSH QSHIFT [facility] Last Admin: 09/30/24 22:36 Dose: 3 ml Documented By: GUZMAN <Chhaya Barron PA-C - Last Filed: 10/01/24 07:41> Labs CBC & Chem 7: 09/27/24 03:26 09/29/24 06:09 <Chhaya Barron PA-C - Last Filed: 10/01/24 07:41> Procedures Date of Service Date of Service: 10/01/24 <Chhaya Barron PA-C - Last Filed: 10/01/24 07:41> 10/01/24 <Junito Calhoun MD - Last Filed: 10/01/24 09:55> Progress Note: A&P Assessment and plan (1) Small bowel obstruction: Status: Acute <Chhaya Barron PA-C - Last Filed: 10/01/24 07:41> Assessment and Plan: Feels well Passing flatus and BMs Tolerating liquids Okay to advance diet as tolerated Doing well Seen and examined independently <Junito Calhoun MD - Last Filed: 10/01/24 09:55> (2) Crohn's disease: Status: Acute <Chhaya Barron PA-C - Last Filed: 10/01/24 07:41> Assessment and Plan: SBO appears resolved. Abd benign- soft, nontender, distention improved. Diet advanced to low residue. If tolerating, stable for dc from surgical standpoint. F/u with GI regarding Crohns. <Chhaya Barron PA-C - Last Filed: 10/01/24 07:41> Time Spent With Patient Time: Total time managing care of this patient today ____ minutes. <Chhaya Barron PA-C - Last Filed: 10/01/24 07:41> Quality Stroke Does the patient have a stroke diagnosis?: No <Chhaya Barron PA-C - Last Filed: 10/01/24 07:41> Reason for No Anti-thrombotic by Day Two: Contraindicated <Chhaya Barron PA-C - Last Filed: 10/01/24 07:41> VTE Prior VTE?: No <Chhaya Barron PA-C - Last Filed: 10/01/24 07:41> VTE Risk Level:: Medical - moderate - high <Chhaya Barron PA-C - Last Filed: 10/01/24 07:41> VTE Device Contraindication: N/A - Device Ordered <Chhaya Barron PA-C - Last Filed: 10/01/24 07:41> VTE Drug Contraindication: N/A - Med Ordered <Chhaya Barron PA-C - Last Filed: 10/01/24 07:41>
--- NOTE | 2024-10-01 10:46 | PM.DS ---
DS: Providers Provider Date of Service: 10/01/24 Date of admission: 09/27/24 00:43 Date of discharge: 10/01/24 Primary care physician: Cecile Briones MD Consults: 09/27/24 02:01 Consult to Gastroenterology Routine Consulting Provider: Rosemary Odom Reason for consultation: SBO, Crohns flare Consult to General Surgery Routine Consulting Provider: [facility] General Surgeons Reason for consultation: SBO Has provider been notified: Yes DS: Diagnosis Discharge Diagnosis (1) Small bowel obstruction: Status: Acute (2) Crohn's disease: Status: Acute DS: Summary Hospital Course Hospital Course: History and physical as per admitting provider. Patient is a 54-year-old female with past medical history Crohn's disease diagnosed 1 year prior on Stelara, right renal carcinoma with partial right kidney removal, endometriosis, partial thyroidectomy, obesity, breast reduction, abdominoplasty, chronic low back pain, vitamin-D deficiency, bipolar 2, exercise-induced asthma presents to the emergency department after 3 days of progressive bilateral lower back pain and abdominal pain with profuse vomiting and nausea. Patient states she was camping over the weekend and upon returning Tuesday 9 after visiting her daughter, approximately 18:30 patient has started vomiting. Patient could only tolerate saltine crackers. Patient was denying chest pain and shortness of breath at the time. Patient works from home and was able to get through work on Tuesday with continued symptoms. By Tuesday at 10:47 patient's symptoms returned with a vengeance and her vomiting was nonstop. 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 Patient's returned home from work at 14:30, noted how patient was doing and patient ultimately decided to go to the emergency department. Patient was worried because of her history of renal carcinoma that she was having a reoccurrence or kidney stones. Patient denies history of gallstones. CT scan in the emergency department noted a small bowel obstruction with distal ileal abnormality related to possible inflammatory infectious bowel disease. Also indicated was hepatic steatosis. Emergency room provider contacted General surgery and asked that patient be admitted under the hospitalist service with an NG-tube placed to low wall suction. Patient will be seen in the morning by General surgery. Patient states she does not take any GLP 1 medications. General labs are stable except for a mild leukocytosis without left shift. Lactic acid is pending. Blood cultures x2 drawn prior to starting ceftriaxone for suspected UTI. NG tube was placed in the emergency department and chest x-ray confirmed proper placement. Upon interviewing patient for admission, NG tube was not attached to low wall suction. Requested that nursing start low wall suction as patient remains symptomatic with significant distention and firmness of the abdomen. Patient was placed on low wall suction with minimal fluids extracted. Patient has been receiving IV narcotics for pain management. Noting patient has a bowel obstruction changing pain management to Dilaudid 1 mg q.4 as needed for severe pain only. Patient is currently NPO. Incidentally urinalysis is suspicious for UTI. Patient is being started on ceftriaxone 1 g daily. 54-year-old woman treated for small-bowel obstruction with recent diagnosis of Crohn's disease on Stelara at home. She had NG tube placed and removed on 09/28/2024. Her diet was advanced from NPO to gluten free, dairy free and bland diet. Patient has been able to tolerate. She was seen by dietary/nutrition. She was also treated with IV fluids and steroids. Plan will be to discharge with 4 weeks of steroid taper 10 mg per week. Exercise-induced asthma. P.r.n. albuterol Obesity. BMI 36.9. Discussed importance of weight management as this may be contributing to worsening of other comorbidities Bipolar. Not on any medications at home Time Attestation Discharge Coordination Time (in mins): 40 Quality: Safe Use of Opioids Does Pt have an Active Cancer Diagnosis on the Problem List?: No Quality: Stroke Does the patient have a stroke diagnosis?: No Physical Exam Vital Signs: Vital Signs: Last Vital Signs Temp 98 F 10/01/24 06:49 Pulse 62 10/01/24 06:49 Resp 16 10/01/24 06:49 BP 138/76 10/01/24 06:49 Pulse Ox 95 10/01/24 06:49 O2 Del Method Room Air 10/01/24 06:49 BMI result Body Mass Index 36.9 Appearing in no acute distress head is normocephalic atraumatic eyes pupils are PERRLA sclera is anicteric mouth throat mucous membranes are intact and moist neck is supple no lymphadenopathy, no JVD noted lung sounds are clear to auscultation heart regular rate rhythm, clear S1, S2 positive bowel sounds, abdomen is soft, nontender neuro patient is alert x3, no focal deficits DS: Data Data Completed and Pending Labs on day of discharge: Preliminary micro results at discharge 09/27/24 02:24 Blood Culture - Preliminary Blood - Venous No growth after 48 hours. 09/27/24 02:24 Blood Culture - Preliminary Blood - Venous No growth after 48 hours. Discharge Plan Discharge Anticipated Discharge Date/Time: 10/01/24 10:38 Patient Disposition: Home, Self-Care Discharge Diagnosis: Small bowel obstruction Referrals: Cecile Briones MD [Primary Care Provider] - 1 Week Discharge Medications: New prednisone 10 mg tablet See Taper PO DIRECTED Qty: 70 0RF Taper: Prednisone 40 mg daily for 7 Days and 0 Hour 30 mg daily for 7 Days and 0 Hour 20 mg daily for 7 Days and 0 Hour 10 mg daily for 7 Days and 0 Hour Rx Instructions: see taper instructions Held Stelara 90 mg/mL syringe 90 mg subcut Q8W Hold Instructions: Resume on 10/08/24. Discuss with GI prior to restarting Discharge Orders: Discharge Order (Routine); Ordered 10/01/24 Ordered By: Violetta Milan Diet: Low fat, low cholesterol Activity on Discharge: As tolerated Stand Alone Forms: Patient Portal Discharge page Print Language: Persian Care Plan Goals: Hold your Crohn's medication and discussed with Gastroenterology prior to restarting Health Concerns: Small-bowel obstruction Plan of Treatment: Follow-up with primary care provider as needed Take all medications as prescribed Assessment: Discharge summary Patient Instructions: Low Fat Diet (GEN), Low Fiber Diet (GEN)
[2024-10-01 11:06] VITALS: BP 129/84; PULSE 72; RESP 16; TEMP 36.6; O2SAT 98
--- NOTE | 2024-10-01 13:52 | MHC.CM.PN ---
Patient medically cleared for dc home self care. will transport at 1430. RN aware.
[2024-10-01 14:59] VITALS: BP 126/85; PULSE 90; RESP 16; TEMP 36.6; O2SAT 97
== END 2024-10-01 15:03 | disposition home or self-care (01) | DRG 245 ==
LOC: HO.ED 09-27 00:34 → HO.EDOVER 09-27 04:15 → HO.S3 09-27 13:34
PROVIDERS: Physician Assistant Medical; Admitting Provider Nurse Practitioner Family; Emergency Provider Emergency Medicine; PCP Internal Medicine; Visit Provider Nurse Practitioner Acute Care
DX: K50.012 Crohn's disease of small intestine with intestinal obstruction (principal); K76.0 Fatty (change of) liver, not elsewhere classified; E66.9 Obesity, unspecified; F31.9 Bipolar disorder, unspecified; J45.990 Exercise induced bronchospasm; M54.50 Low back pain, unspecified; N39.0 Urinary tract infection, site not specified; J98.11 Atelectasis; Z68.36 Body mass index [BMI] 36.0-36.9, adult; Z71.3 Dietary counseling and surveillance; Z85.528 Personal history of other malignant neoplasm of kidney; Z79.620 Long term (current) use of immunosuppressive biologic
CPT/HCPCS: 36415; 71045; 72100; 74018; 74177; 80048; 80053; 81001; 83605; 83690; 83735; 84443; 85025; 87040; 87086; 99285; J0696; J1171; J1650; J2250; J2270; J2470; J2919; J3360; J7120; Q9967

== ENCOUNTER → 2024-09-26 18:52 | Outpatient (BNV) | payer BC, SELFPAY | PROVIDERS: PCP Internal Medicine; Visit Provider Radiology Neuroradiology | DX: R10.9 Unspecified abdominal pain (principal); M51.369 Other intervertebral disc degeneration, lumbar region without mention of lumbar back pain or lower extremity pain | CPT/HCPCS: 72100; 74177 ==

== ENCOUNTER 2024-09-27 00:43 | Outpatient (BNV) | payer BC, SELFPAY | END 2024-09-30 08:38 | PROVIDERS: Admitting Provider Nurse Practitioner Family; Emergency Provider Emergency Medicine; PCP Internal Medicine; Visit Provider Radiology Vascular & Interventional Radiology | DX: R14.0 Abdominal distension (gaseous) (principal) | CPT/HCPCS: 74018 ==

== ENCOUNTER 2024-09-27 00:43 | Outpatient (BNV) | payer BC, SELFPAY | END 2024-09-28 08:38 | PROVIDERS: Admitting Provider Nurse Practitioner Family; Emergency Provider Emergency Medicine; PCP Internal Medicine; Visit Provider Radiology Diagnostic Radiology | DX: R14.0 Abdominal distension (gaseous) (principal) | CPT/HCPCS: 74018 ==

== ENCOUNTER → 2024-09-27 00:43 | Outpatient (BNV) | payer BC, SELFPAY | PROVIDERS: Admitting Provider Nurse Practitioner Family; Emergency Provider Emergency Medicine; PCP Internal Medicine; Visit Provider Nurse Practitioner Family | DX: K56.609 Unspecified intestinal obstruction, unspecified as to partial versus complete obstruction (principal) | CPT/HCPCS: 99223; 99499 ==

== ENCOUNTER → 2024-09-27 00:43 | Outpatient (BNV) | payer BC, SELFPAY | PROVIDERS: Admitting Provider Nurse Practitioner Family; Emergency Provider Emergency Medicine; PCP Internal Medicine; Visit Provider Internal Medicine Gastroenterology | DX: K56.609 Unspecified intestinal obstruction, unspecified as to partial versus complete obstruction (principal); K50.90 Crohn's disease, unspecified, without complications | CPT/HCPCS: 99232 ==

== ENCOUNTER → 2024-09-27 00:43 | Outpatient (BNV) | payer BC, SELFPAY | PROVIDERS: Admitting Provider Nurse Practitioner Family; Emergency Provider Emergency Medicine; PCP Internal Medicine; Visit Provider Physician Assistant Surgical | DX: K56.609 Unspecified intestinal obstruction, unspecified as to partial versus complete obstruction (principal) | CPT/HCPCS: 99232; 99253; 99499 ==

== ENCOUNTER 2024-10-03 14:04 | Outpatient (AMB) | payer BC, SELFPAY ==
--- NOTE | 2024-10-03 14:04 | A.OFFVIS_ITS ---
Intake Visit Reasons: discuss concerns Intake Note: Shayy presents as a telehealth today - states that she was in the ED for a bowel obstruction and has some questions and concerns that she would like to run by the Dr. Brick Sorter Required: No Allergies lactose [LACTOSE] Allergy (Unknown, Verified 10/03/24 14:06) GI UPSET latex Allergy (Unknown, Uncoded 10/03/24 14:06) unknown HPI Comments Details: 52y.o F with PMH of R sided renal cell ca s/p partial nephrectomy, bipolar II disorder, ADHD, obesity, hx of crohns disease who is here for second opinion. To recap, pt had a CT Abd/pel without contrast in 10/2021 which was ordered by Urology for lower back pain to r/o urinary obstruction from kidney stone. This showed wall thickening in T.I with prominent vasa recta and lymph nodes. Pt subsequently had blood and stool testing - fecal calopro 1200 with prometheus panel suggestive of IBD but inconclusive for Crohns vs UC. She was then started on budosenide followed by Humira. Humira was stopped in August after she developed generalised body swelling. She was then put on mesalamine and budesonide which she also stopped 3 weeks ago due to a URI. Pt has not had a diagnostic ileocolonoscopy for endoscopic/histologic confirmation of IBD. Last colo in 2015 (Dr Keyes) was fair prep without any mucosal abnormality. Currently, main sx are intermittent abd pain, and loose watery stools triggered by certain foods such as coffee, greasy food, dairy etc. Has 1 BM per day. No blood. No unintentional weight loss. Strong fam hx of IBD. 07/28/23 Impression: * Inlet patch * Normal stomach * Duodenitis (biopsy) * Terminal ileitis and patchy colitis with rectal sparing (biopsy) * Internal and external hemorrhoids Diagnosis A. Duodenum, biopsy: Small intestinal mucosa within normal limits. B. Esophagus, lower, biopsy: Squamous epithelium within normal limits; no inflammation seen. C. Esophagus, middle, biopsy: Squamous epithelium within normal limits; no inflammation seen. D. Terminal ileum, biopsy: Ileocolonic mucosa with surface hyperplastic changes. E. Ileocecal valve, biopsy: Colonic mucosa within normal limits. F. Cecum, biopsy: Colonic mucosa within normal limits. G. Colon, ascending, biopsy: Colonic mucosa within normal limits. H. Colon, transverse, biopsy: Focally active colitis. I. Colon, descending, biopsy: Focally active colitis. J. Colon, sigmoid, biopsy: Mildly active colitis. K. Rectum, biopsy: Rectal mucosa within normal limits. Comment: Fully developed chronic injury is not identified in any of the samples. No dysplasia is seen 08/08/23: Patient continues to report the runs specially after eating. No blood in stool. Patient also reports diffuse joint pains especially lower back pain. EGD and colonoscopy results reviewed with the patient, which are highly suggestive of Crohn's disease in the current clinical context, although no chronic injury noted on histology. 09/12/23: Prednisone taper completed 09/04. No significant side effects. Noticed improvement in stool - formed, going 1/day. Sayda for infusions later this month however unsure of immunization status - see below. 02/15/24: Seen in follow up. Had a short period of time with improvement in sx during induction period. However, for the past couple of months having recurrence of lower abd pain and diarrhea with urgency cheikh post prandially. Labs reviewed with the pt. Has low IFX levels with low levels of Ab formation. OF NOTE PT REPORTS GETTING REMICADE LAST TIME ON 02/06/24 DESPITE ORDERS FOR INFLECTRA. RELEVANT PHARMACY STAFF HAS BEEN ALERTED RE THIS ERROR. 05/21/24: Here for televisit. Reports sx are starting almost 2 weeks after infusion. Has abd cramping with bloating and diarrhea. More with certain foods. Most recent infusion also gave her nausea and vomiting. Labs reviewed. Has no levels of IFX drug with detectable ATI despite boosting dose to 10mg/kg with Azathioprine 50. 10/03/24: Seen as post hospitalization follow up. Pt rescehduled her July appt as she was sick at that time. Was admitted 09/26 to 10/01 for partial SBO 2/2 crohns flare. Was on bowel rest and NGT decompression for 48h and was eventually able to start clears 09/29. Now discharged since 10/01. Doing better. Has been making crohns friendly diet changes. Otherwise no abd pain, N,V now. BM regular. Was asked to HOLD stelara in hospital while shes on pred taper. On 40 mg dosing since 10/01. [facility] Medical History Generalized anxiety disorder Bipolar II disorder with rapid cycling ADHD (attention deficit hyperactivity disorder) Cyclothymia Inflammatory bowel disease History of kidney cancer Dyspepsia Asthma, exercise induced Lipid disorder Bipolar 1 disorder Family history of coronary artery disease Surgical History History of esophagogastroduodenoscopy (EGD) H/O colonoscopy Hx of elbow surgery H/O right nephrectomy Status post breast reduction History of endometrial ablation History of bunionectomy History of tubal ligation History of section Family History Father HTN (hypertension) High cholesterol Colon polyp History of open heart surgery Mother High cholesterol CVD (cardiovascular disease) H/O: hysterectomy Non-Hodgkin lymphoma Maternal Grandfather HTN (hypertension) Myocardial infarction CVD (cardiovascular disease) Maternal Grandmother CVD (cardiovascular disease) HTN (hypertension) Myocardial infarction Breast cancer, Onset Age: 45 Paternal Grandfather Diabetes mellitus Throat cancer Paternal Grandmother Breast cancer Bone cancer Brother No problems noted. Sister Bone cancer HTN (hypertension) Ovarian cancer Non-Hodgkin lymphoma Daughter No problems noted. Daughter No problems noted. Maternal Aunt Breast cancer, Onset Age: 44 Maternal Aunt CVD (cardiovascular disease) Sister Follicular lymphoma Paternal Grandmother Breast cancer Other Mental health disorder Substance use disorder Social History Household Members: Spouse Housing: House Do you presently have visiting nurse or other home services: No Comment: medicated with Tylenol 975 mg PO at 1312 Patient Tobacco Use Status: Former Tobacco user Tobacco use type: Cigarette e-Cigarette/Vaping Use: Never Used service: No Current occupational status: employed Current occupation: [employer] Cognitive needs: No Hearing needs: No Vision needs: No Female Reproductive History Menstrual Age of Menarche: 16 Review of Systems Const All systems reviewed & are unremarkable except as noted in HPI and below Physical Exam Vital Signs: televisit Assessment & Plan Assessment & Plan (1) Crohn's disease: Code(s): K50.90 - Crohn's disease, unspecified, without complications Category: Medical (2) Abdominal pain: Code(s): R10.9 - Unspecified abdominal pain Category: Medical (3) Small bowel obstruction: Code(s): K56.609 - Unspecified intestinal obstruction, unspecified as to partial versus complete obstruction Category: Medical Plan Here for follow up after hospitalization for SBO. Partial SBO was likely 2/2 crohns flare. Resolved with steroid pulse, bowel rest. Now on pred taper. Advised that from GI standpoint can resume stelara gwen - late by a few days. We discussed the indication and potential risks of ustekinumab therapy including slightly elevated risk of infections such as respiratory infections, reactivation of tuberculosis, infusion reactions, rare risk of PRESS etc. We also reviewed that the risk of not proceeding includes progression of Crohn's disease, which may then potentially become even more difficult to treat later on or lead to surgery. Disease and monitoring: Active - * Cont Stelara 90mg S/C q8w. * Cont pred taper as prescribed * Check CRP, fecal calpro and UST levels once taper completed * Depending on results, may need to INCREASE stelara dosing vs frequency Nutrition: * Iron studies, B12 and folate normal * Counseled on SCD diet which may have better value for crohns Bone Health: * Normal Vit D and normal DEXA 2023. Health maintenance: * IBD dysplasia screening: N/A * Mammo: uptodate * Pap: uptodate * Sun safety: reviewed Follow-up in 3 months Orders: Orders Calprotectin, Fecal 3 Weeks K50.90 - Crohn's disease, unspecified, without complications C Reactive Protein 3 Weeks K50.90 - Crohn's disease, unspecified, without complications Promethzahra Chawla UST 3 Weeks K50.90 - Crohn's disease, unspecified, without complications Coding Level of Care Code Tele Est Pt Level 4 (50680) Diagnoses Crohn's disease K50.90 Abdominal pain R10.9 Small bowel obstruction K56.609
--- OUTSIDE RECORDS SUMMARY | 2024-10-03 14:06 | XMS_ITS | Clinical Summary ---
Author Organization [employer] Address [address] [place] [address] [address] [place] [address] Care Team Providers Care Guest Services Ambassador Name Role Phone Unavailable Primary Care Provider Unavailabl e Social History Tobacco Use Types Packs/Day Years Used Date Smoking Tobacco: Never Assessed Comments Unknown Sex and Gender Information Value Date Recorded Sex Assigned at Female 03/01/2022 10:31 AM EDT Legal Sex Female 10:31 AM EDT Gender Identity Choose not to disclose 10:31 AM EDT Sexual Orientation Choose not to disclose 2021 10:31 AM EDT Plan of Treatment Health Maintenance Due Date Last Done Comments CT Colonography 1971 Colonoscopy 1971 Colorectal Cancer Screening 1971 Depression Screening 1971 FIT DNA/Cologuard 1971 FIT 1971 FOBT 1971 Sigmoidoscopy 1971 Disability Screening 1971 Alcohol/Substance Use Screening 1983 Tobacco Screening 1983 DTaP/Tdap/Td Vaccines (1 - Tdap) 09/18/1990 Hepatitis B Vaccines (1 of 3 - 19+ 3-dose series) 09/18/1990 Pap Smear 09/18/1992 Cervical Cancer Screening 09/18/2001 HPV/Cotest 09/18/2001 Mammogram 2011 Pneumococcal Vaccine: 50+ Ye ars (1 of 1 - PCV) 09/18/2021 Zoster Vaccines (1 of 2) 09/18/2021 COVID-19 Vaccine ( - 2023-2 5 season) 2024 Influenza Vaccine (Season Ended) 2024 RSV Patients and Pa tients Aged 60 years or older (1 - 1-dose 75+ series) 09/18/2046 HIB Vaccines Aged Out No longer eligi ble based on patient's age to complete this topic HPV Vaccines Aged Out No longer eligi ble based on patient's age to complete this topic Hepatitis A Vaccines Aged Out No long er eligible based on patient's age to complete this topic IPV Vaccines Aged Out No longer eligi ble based on patient's age to complete this topic Meningococcal B Vaccine Aged Out No l onger eligible based on patient's age to complete this topic Meningococcal Vaccine Aged Out No liliana gloria eligible based on patient's age to complete this topic RSV under 20 months Aged Out No longe r eligible based on patient's age to complete this topic Rotavirus Vaccines Aged Out No longer eligible based on patient's age to complete this topic
== END 2024-10-03 16:08 | disposition home or self-care (01) ==
PROVIDERS: PCP Internal Medicine; Visit Provider Internal Medicine
DX: K50.90 Crohn's disease, unspecified, without complications (principal); R10.9 Unspecified abdominal pain; K56.609 Unspecified intestinal obstruction, unspecified as to partial versus complete obstruction
CPT/HCPCS: 99214

== ENCOUNTER → 2024-10-03 14:04 | Outpatient (BNVA) | payer BC, SELFPAY | PROVIDERS: PCP Internal Medicine; Visit Provider Internal Medicine ==

== ENCOUNTER 2024-11-07 14:32 | Outpatient (REF) | payer BC, SELFPAY ==
--- OUTSIDE RECORDS SUMMARY | 2024-11-07 15:06 | XMS_ITS | Clinical Summary ---
Author Organization [employer] Address [address] [place] [address] [address] [place] [address] Care Team Providers Care Business Process Analyst Name Role Phone Unavailable Primary Care Provider [...] - 2023-2 5 season) 2024 Influenza Vaccine (#1) 2024 RSV Patients and Pa tients Aged [...]
== END 2024-11-07 14:33 | disposition home or self-care (01) ==
LOC: HO.LAB 14:32
PROVIDERS: PCP Internal Medicine; Visit Provider Internal Medicine
DX: K50.90 Crohn's disease, unspecified, without complications (principal)
CPT/HCPCS: 36415; 80299; 82542; 86140

== ENCOUNTER 2024-11-24 09:03 | Outpatient (REF) | payer BC, SELFPAY ==
[2024-11-24 09:11] LABS: Appearance Urine Clear; Glucose Urine UA Negative (Negative); PH 6.5 (5.0-9.0); Specific Gravity - Urine 1.010 (1.005-1.025); UMIC TRIGGER UA YES
[2024-12-01 11:39] LABS: Calprotectin, Fecal 402 mcg/g
== END 2024-11-24 09:04 | disposition home or self-care (01) ==
LOC: HO.LNP 09:03
PROVIDERS: Visit Provider Internal Medicine
DX: R60.0 Localized edema (principal); K50.90 Crohn's disease, unspecified, without complications
CPT/HCPCS: 81001; 83993

== ENCOUNTER 2025-01-07 15:19 | Outpatient (AMB) | payer BC, SELFPAY ==
--- NOTE | 2025-01-07 15:21 | A.OFFVIS_ITS ---
Vital Signs 01/07/25 15:26 Height 5 ft 6 in Weight 231 lb 7.766 oz BMI 37.4 BP 117/93 H Blood Pressure Location Lt brachial Position Sitting Pulse 84 Intake Visit Reasons: 3m crohns Intake Note: Shayy presents in the office as a 3 month follow up Crohns. CC: She states that she is not having any concerns other than the same old symptoms. Lower back pains with on and off constipation and diarrhea. She watches what she eats. She states for has been drinking fairlife milk because of the lactose. She wants to know if she can have testing for gluten intolerance. Slurry Control Tender Required: No Allergies lactose (LACTOSE) Allergy (Unknown, Verified 01/07/25 15:26) GI UPSET latex Allergy (Unknown, Uncoded 01/07/25 15:26) unknown HPI Comments Details: 52y.o F with PMH of R sided renal cell ca s/p partial nephrectomy, bipolar II disorder, ADHD, obesity, hx of crohns disease who is here for second opinion. To recap, pt had a CT Abd/pel without contrast in 10/2021 which was ordered by Urology for lower back pain to r/o urinary obstruction from kidney stone. This showed wall thickening in T.I with prominent vasa recta and lymph nodes. Pt subsequently had blood and stool testing - fecal calopro 1200 with prometheus panel suggestive of IBD but inconclusive for Crohns vs UC. She was then started on budosenide followed by Humira. Humira was stopped in August after she developed generalised body swelling. She was then put on mesalamine and budesonide which she also stopped 3 weeks ago due to a URI. Pt has not had a diagnostic ileocolonoscopy for endoscopic/histologic confirmation of IBD. Last colo in 2015 (Dr Keyes) was fair prep without any mucosal abnormality. Currently, main sx are intermittent abd pain, and loose watery stools triggered by certain foods such as coffee, greasy food, dairy etc. Has 1 BM per day. No blood. No unintentional weight loss. Strong fam hx of IBD. 07/28/23 Impression: * Inlet patch * Normal stomach * Duodenitis (biopsy) * Terminal ileitis and patchy colitis with rectal sparing (biopsy) * Internal and external hemorrhoids Diagnosis A. Duodenum, biopsy: Small intestinal mucosa within normal limits. B. Esophagus, lower, biopsy: Squamous epithelium within normal limits; no inflammation seen. C. Esophagus, middle, biopsy: Squamous epithelium within normal limits; no inflammation seen. D. Terminal ileum, biopsy: Ileocolonic mucosa with surface hyperplastic changes. E. Ileocecal valve, biopsy: Colonic mucosa within normal limits. F. Cecum, biopsy: Colonic mucosa within normal limits. G. Colon, ascending, biopsy: Colonic mucosa within normal limits. H. Colon, transverse, biopsy: Focally active colitis. I. Colon, descending, biopsy: Focally active colitis. J. Colon, sigmoid, biopsy: Mildly active colitis. K. Rectum, biopsy: Rectal mucosa within normal limits. Comment: Fully developed chronic injury is not identified in any of the samples. No dysplasia is seen 08/08/23: Patient continues to report the runs specially after eating. No blood in stool. Patient also reports diffuse joint pains especially lower back pain. EGD and colonoscopy results reviewed with the patient, which are highly suggestive of Crohn's disease in the current clinical context, although no chronic injury noted on histology. 09/12/23: Prednisone taper completed 09/04. No significant side effects. Noticed improvement in stool - formed, going 1/day. Sayda for infusions later this month however unsure of immunization status - see below. 02/15/24: Seen in follow up. Had a short period of time with improvement in sx during induction period. However, for the past couple of months having recurrence of lower abd pain and diarrhea with urgency cheikh post prandially. Labs reviewed with the pt. Has low IFX levels with low levels of Ab formation. OF NOTE PT REPORTS GETTING REMICADE LAST TIME ON 02/06/24 DESPITE ORDERS FOR INFLECTRA. RELEVANT PHARMACY STAFF HAS BEEN ALERTED RE THIS ERROR. 05/21/24: Here for televisit. Reports sx are starting almost 2 weeks after infusion. Has abd cramping with bloating and diarrhea. More with certain foods. Most recent infusion also gave her nausea and vomiting. Labs reviewed. Has no levels of IFX drug with detectable ATI despite boosting dose to 10mg/kg with Azathioprine 50. 10/03/24: Seen as post hospitalization follow up. Pt rescehduled her July appt as she was sick at that time. Was admitted 09/26 to 10/01 for partial SBO 2/2 crohns flare. Was on bowel rest and NGT decompression for 48h and was eventually able to start clears 09/29. Now discharged since 10/01. Doing better. Has been making crohns friendly diet changes. Otherwise no abd pain, N,V now. BM regular. Was asked to HOLD stelara in hospital while shes on pred taper. On 40 mg dosing since 10/01. 01/07/25: Here for follow up. Was supposed to increase the dose q4w but pt still hasnt received the refill. Prescription was sent by our office 12/05. This will be resent today. Will also review with office clerk routine to see if we can call [facility]. Prednisone taper has been completed as of October. [facility] Medical History Crohn's disease Generalized anxiety disorder Bipolar II disorder with rapid cycling ADHD (attention deficit hyperactivity disorder) Cyclothymia Inflammatory bowel disease History of kidney cancer Dyspepsia Asthma, exercise induced Lipid disorder Bipolar 1 disorder Family history of coronary artery disease Surgical History History of esophagogastroduodenoscopy (EGD) H/O colonoscopy Hx of elbow surgery H/O right nephrectomy Status post breast reduction History of endometrial ablation History of bunionectomy History of tubal ligation History of section Family History Father HTN (hypertension) High cholesterol Colon polyp History of open heart surgery Mother High cholesterol CVD (cardiovascular disease) H/O: hysterectomy Non-Hodgkin lymphoma Maternal Grandfather HTN (hypertension) Myocardial infarction CVD (cardiovascular disease) Maternal Grandmother CVD (cardiovascular disease) HTN (hypertension) Myocardial infarction Breast cancer, Onset Age: 45 Paternal Grandfather Diabetes mellitus Throat cancer Paternal Grandmother Breast cancer Bone cancer Brother No problems noted. Sister Bone cancer HTN (hypertension) Ovarian cancer Non-Hodgkin lymphoma Daughter No problems noted. Daughter No problems noted. Maternal Aunt Breast cancer, Onset Age: 44 Maternal Aunt CVD (cardiovascular disease) Sister Follicular lymphoma Paternal Grandmother Breast cancer Other Mental health disorder Substance use disorder Social History Household Members: Spouse Housing: House Do you presently have visiting nurse or other home services: No Comment: medicated with Tylenol 975 mg PO at 1312 Patient Tobacco Use Status: Former Tobacco user Tobacco use type: Cigarette e-Cigarette/Vaping Use: Never Used service: No Current occupational status: employed Current occupation: [employer] Cognitive needs: No Hearing needs: No Vision needs: No Female Reproductive History Menstrual Age of Menarche: 16 Physical Exam Vital Signs: Last Vital Signs Pulse 84 01/07/25 15:26 BP 117/93 H 01/07/25 15:26 BMI result Body Mass Index 37.4 Assessment & Plan Assessment & Plan (1) Crohn's disease: Code(s): K50.90 - Crohn's disease, unspecified, without complications Category: Medical (2) Abdominal pain: Code(s): R10.9 - Unspecified abdominal pain Category: Medical (3) Small bowel obstruction: Code(s): K56.609 - Unspecified intestinal obstruction, unspecified as to partial versus complete obstruction Category: Medical Plan Here for follow up after hospitalization for SBO. Partial SBO was likely 2/2 crohns flare. Resolved with steroid pulse, bowel rest. Now on pred taper. Advised that from GI standpoint can resume stelara gwen - late by a few days. We discussed the indication and potential risks of ustekinumab therapy including slightly elevated risk of infections such as respiratory infections, reactivation of tuberculosis, infusion reactions, rare risk of PRESS etc. We als o reviewed that the risk of not proceeding includes progression of Crohn's disease, which may then potentially become even more difficult to treat later on or lead to surgery. Disease and monitoring: Has subtherapeutic stelara levels based on blood work October 2024. * INCREASE Stelara 90mg S/C q4w. * [facility] Pt advised to reach out if hasnt heard from pharmacy in 2 days * Will be due for labs before 3rd dose on q4w schedule Nutrition: * Iron studies, B12 and folate normal * Counseled on SCD diet which may have better value for crohns Bone Health: * Normal Vit D and normal DEXA 2023. Health maintenance: * IBD dysplasia screening: N/A * Mammo: uptodate * Pap: uptodate * Sun safety: reviewed Follow-up in 3 months Medications: Refilled ustekinumab (Stelara) 90 mg subcut Q4W 4 mL 0RF 90 days Coding Level of Care Code Est Pt Level 4 (35172) Complex EM visit Add On G2211 Diagnoses Crohn's disease K50.90 Abdominal pain R10.9 Small bowel obstruction K56.609
[2025-01-07 15:26] VITALS: BP 117/93; PULSE 84; BMI 37.4
--- OUTSIDE RECORDS SUMMARY | 2025-01-07 18:24 | XMS_ITS | Clinical Summary ---
Author Organization [facility] Address [address] [place] [address] Care Team Providers Care Sales Office Manager Name Role Phone Cecile Briones MD Primary Care Provider [phone] Social History Tobacco Use Types Packs/Day Years Used Date Smoking Tobacco: Never Assessed Comments Unknown Sex and Gender Information Value Date Recorded Sex Assigned at Not on file Legal Sex Female 9:47 AM EDT Gender Identity Not on file Sexual Orientation Not on file Plan of Treatment Upcoming Encounters Date Type Department Care Team (Late st Contact Info) Description 01/15/2025 3:30 PM EDT Office Visit [facility] [address] [place] [address] Renetta Earl, DO 6 [facility] [address] [address] Health Maintenance Due Date Last Done Comments Breast Cancer Screening 1971 DTaP,Tdap,and Td Vaccines (1 - Tdap) 09/18/1990 Hepatitis B Vaccines (1 of 3 - 19+ 3-dose series) 09/18/1990 Cervical Cancer Screening: P ap Smear 09/18/1992 Pneumococcal Vaccine: 50+ Ye ars (1 of 1 - PCV) 09/18/2021 Zoster Vaccines (1 of 2) 09/18/2021 Depression Screening 05/02/2024 Colorectal Cancer Screening: Colonoscopy 12/10/2024 HIV Screening 12/10/2024 Hepatitis C Screening 12/10/2024 Social Influencers of Health Screening 12/10/2024 COVID-19 Vaccine ( - 2023-2 5 season) 2024 Influenza Vaccine (#1) 2024 HIB Vaccines Aged Out No longer eligi [...] on patient's age to complete this topic MMR Vaccines Aged Out No longer eligi ble based on patient's age to complete this topic Meningococcal ACWY Vaccine Aged Out N o longer eligible based on patient's age to complete this topic Meningococcal B Vaccine Aged Out No l onger eligible based on patient's age to complete this topic RSV Immunization Patients Un rodrigue 20 months Aged Out No longer eligible b ased on patient's age to complete this topic Varicella Vaccines Aged Out No longer eligible based on patient's age to complete this topic Insurance MEDICARE Care Teams Sales Office Manager Relationship Specialty Start Date End Date Cecile Briones MD [address] [place] [address] PCP - General Internal Medicine 12/17/24
--- OUTSIDE RECORDS SUMMARY | 2025-01-07 18:24 | XMS_ITS | Clinical Summary ---
Author Organization [employer] Address [address] [place] [address] [address] [place] [address] Care Team Providers Care Scratch Finisher Name Role Phone Unavailable Primary Care Provider [...]
--- OUTSIDE RECORDS SUMMARY | 2025-01-07 18:24 | XMS_ITS | Encounter Summary ---
Author Organization [facility] Address [address] 7 [place] [address] Care Team Providers Care Cabin Agent Name Role Phone Unavailable Primary Care Provider Unavailabl e Encounter Details Date Type Department Care Team (Latest Contact Info) Description 09/23/2020 Abstract [facility] CONVERSIONS Dental, Provider, DDS Social History Tobacco Use Types Packs/Day Years Used Date Smoking Tobacco: Never Assessed Comments Unknown Sex and Gender Information Value Date Recorded Sex Assigned at Female 03/01/2022 10:31 AM EDT Legal Sex Female 10:31 AM EDT Gender Identity Choose not to disclose 2 10:31 AM EDT Sexual Orientation Choose not to disclose 2021 10:31 AM EDT documented as of this encounter Plan of Treatment Not on file documented as of this encounter Visit Diagnoses Not on filedocumented in this encounter
--- OUTSIDE RECORDS SUMMARY | 2025-01-07 18:24 | XMS_ITS | Encounter Summary ---
Author Organization [facility] [facility] Address [address] 7 [place] [address] Care Team Providers Care Chief Of Vital Statistics Name Role Phone Unavailable Primary Care Provider Unavailabl e Encounter Details Date Type Department Care Team (Latest Contact Info) Description 11/07/2018 Abstract [facility] CONVERSIONS Dental, Provider, DDS Social History Tobacco [...]
== END 2025-01-07 15:56 | disposition home or self-care (01) ==
LOC: HO.HGI 15:20
PROVIDERS: PCP Internal Medicine; Visit Provider Internal Medicine
DX: K50.90 Crohn's disease, unspecified, without complications (principal); R10.9 Unspecified abdominal pain; K56.609 Unspecified intestinal obstruction, unspecified as to partial versus complete obstruction
CPT/HCPCS: 99214

== ENCOUNTER 2025-03-09 08:07 | Outpatient (REF) | payer BC, SELFPAY ==
--- OUTSIDE RECORDS SUMMARY | 2025-03-09 08:11 | XMS_ITS ---
Author Name [facility] Organization Unknown History of Medication Use Medication Directions Dispensed Refills Start Date End Date Stat us Stelara 90 mg/mL syringe 01/08/2025 active Allergies Allergen Reaction Severity Comment Documented Date Source Statu s LATEX RASH Other Reaction( s): adhesive tape 01/15/2025 [facility] active Problems Problem Status Onset Date Problem Type Date of Resolution Source Crohn's disease of both small and large intestine with intestinal obstruction ([facility] V24, [facility] V28) active EncounterDiagnosisAct [facility] Immunizations Vaccine Date Source Lot Number Status Moderna SARS-CoV-2 COVID-19, mRNA, LNP-S, preservative free 04/06/2021 [facility] completed Encounters Encounter Type Encounter Reason Primary Diagnosis Location Date Ambulatory Crohn's disease of both small and large intestine with intestinal obstruction ([facility] V24, [facility] V28) Crohn's disease of both small and large intestine with intestinal obstruction ([facility] V24, [facility] V28) [facility] 02/08/2025 Ambulatory Crohn's Disease Crohn's disease of large intestine with intestinal obstruction ([facility] V24, [facility] V28) [facility] 01/15/2025 Care Team Organization Name Specialty Phone Email Start Date End Da te [facility] [place] [facility] 01/2025 [facility] [place] [facility] ASML[facility]OPE[facility] Primary Care
--- OUTSIDE RECORDS SUMMARY | 2025-03-09 08:11 | XMS_ITS | Encounter Summary ---
Author Organization [facility] [facility] Address [address] [place] [address] Care Team Providers Care Hand Packer Name Role Phone Unavailable Primary Care Provider Unavailabl e Encounter Details Date Type Department Care Team (Latest Contact Info) Description 09/23/2020 Abstract [facility] CONVERSIONS Dental, Provider, DDS Social History [...]
--- OUTSIDE RECORDS SUMMARY | 2025-03-09 08:11 | XMS_ITS | Encounter Summary ---
Author Organization [facility] [facility] Address [address] [place] [address] Care Team Providers Care Finish Mender Name Role Phone Unavailable Primary Care Provider Unavailabl e Encounter Details Date Type Department Care Team (Latest Contact Info) Description 11/07/2018 Abstract [facility] CONVERSIONS Dental, Provider, DDS Social History [...]
--- OUTSIDE RECORDS SUMMARY | 2025-03-09 08:11 | XMS_ITS | Clinical Summary ---
Author Organization [employer] Address [address] [place] [address] [address] [place] [address] Care Team Providers Care Group Manager Name Role Phone Unavailable Primary Care Provider [...]
--- OUTSIDE RECORDS SUMMARY | 2025-03-09 08:12 | XMS_ITS | Clinical Summary ---
Author Organization [facility] Address [address] [place] [address] Care Team Providers Care Insulation Cutter Name Role Phone Cecile Briones MD Primary Care Provider [phone] Allergies Active Allergy Reactions Criticality Noted Date Comments Latex Rash 01/15/2025 Other Reaction(s): adhesive tape Medications Stelara 90 mg/mL syringe 01/08/2025 Active Encounters Date Type Department Care Team Description 02/08/2025 1:00 PM EDT Office Visit [facility] [address] [address] Susan Swan MD Crohn's disease of both small and large intestine with intestinal obstruction (CMS/[facility] V24, CMS/HCC V28) (Primary Dx) 01/15/2025 3:30 PM EDT Office Visit [facility] [address] [place] [address] Renetta Earl DO Crohn's disease of colon with intestinal obstruction (CMS/[facility] V24, CMS/[facility] V28) (Primary Dx) from Last 3 Months Immunizations Immunization Administration Dates Next Due Moderna SARS-CoV-2 COVID-19, mRNA, LNP-S, preservative free 04/06/2021 Social History Tobacco Use Types Packs/Day Years Used Date Smoking Tobacco: Never Smokeless Tobacco: Never Tobacco Cessation:Counseling Given: Not Answered Alcohol Use Standard Drinks/Week Comments Not Currently 0 (1 standard drink = 0.6 oz pur e alcohol) Housing Instability Answer Date Recorde d Are you worried that in the next 2 months you may not have stable housing? No 01/08/2025 Food Access & Nutrition Answer Date Rec orded Do you have access to a vari ety of food including fruits and vegetables? No 01/08/2025 Access to Healthcare Answer Date Record ed Within the last 3 months, ho w many times did you visit the emergency department for your medical care? 1 01/08/2025 Health Literacy Answer Date Recorded How often do you need to hav e someone help you when you read instructions, pamphlets, or other written material from your doctor or pharmacy? Never 01/08/2025 Caregiver: How often do you need to have someone help you when you read instructions, pamphlets, or other written material from your doctor or pharmacy? Not on file 01/08/2025 Financial Risk Answer Date Recorded How hard is it for you to pa y for the very basics like food, housing, medical care, and air conditioning / heating? Not very hard 01/08/2025 Transportation Answer Date Recorded Has the lack of transportati on kept you from meetings, work, or from getting things needed for daily living? No Has the lack of transportati on kept you from medical appointments or from getting medications? No 01/08/2025 Social Isolation Answer Date Recorded How often do you feel lonely or isolated from th ose around you? Never 01/08/2025 Food Risk Answer Date Recorded Within the past 12 months we worried whether our food would run out before we got money to buy more. Never true 01/08/2025 Within the past 12 months th e food we bought just didn't last and we didn't have money to get more. Never true 01/08/2025 Dependent Care Answer Date Recorded Do you need help finding or paying for care for your loved ones. For example, early childhood associate or elderly care for an older adult? No 01/08/2025 Education Answer Date Recorded Do you think completing more education or training, like finishing a GED, going to college, or learning a trade, would be helpful for you? No 01/08/2025 Employment and Income Answer Date Recor ded During the last four weeks, have you been actively looking for work? Yes 01/08/2025 Living Situation Answer Date Recorded What is your living situation? Unrecognized valu e 01/08/2025 Comments Unknown Sex and Gender Information Value Date Recorded Sex Assigned at Female 01/08/2025 1:21 PM EDT Legal Sex Female 9:47 AM EDT Gender Identity Female 01/08/2025 1:21 PM EDT Sexual Orientation Straight 01/08/2025 1: 21 PM EDT Obstetrics History Last Filed Vital Signs Vital Sign Reading Time Taken Comments Blood Pressure 128/86 02/08/2025 1:02 PM EDT Pulse 97 02/08/2025 1:02 PM EDT Temperature - - Respiratory Rate - - Oxygen Saturation 98% 02/08/2025 1:02 PM EDT Inhaled Oxygen Concentration - - Weight 104 kg (230 lb) 02/08/2025 1:02 PM EDT Height 167.6 cm (5' 6 ) 02/08/2025 1:02 PM EDT Body Mass Index 37.12 02/08/2025 1:02 PM EDT Plan of Treatment Health Maintenance Due Date Last Done Comments Breast Cancer Screening 1970 Colorectal Cancer Screening: Colonoscopy 1971 Cervical Cancer Screening: Pap Smear 09/18/1992 Pneumococcal Vaccine: 50+ Years (2 of 2 - PCV) 09/18/2021 03/12/2016, 11/14/2014 Depression Screening 05/02/2024 DTaP,Tdap,and Td Vaccines (2 - Td or Tdap) 11/14/2024 11/14/2014 HIV Screening 12/10/2024 Hepatitis C Screening 12/10/2024 COVID-19 Vaccine ( - season) 2024 05/03/2021, 04/06/2021 Influenza Vaccine (#1) 2024 , 01/28/2020, 01/22/2018, Additional history exists Social Influencers of Health Screening 01/08/2026 01/08/2025 RSV Immunization Adult Patients (1 - 1-dose 75+ series) 09/18/2046 Hepatitis A Vaccines Aged Out 10/17/2023, 09/14/19 24 No longer eligible based on patient's age to complete this topic Hepatitis B Vaccines Completed 10/17/2023, 09/14/2023, 11/19/2004, Additional history exists Zoster Vaccines Completed 10/17/2023, 09/13/2023 HIB Vaccines Aged Out No longer eligi [...] to complete this topic RSV Immunization Patients Under 20 months Aged Out No longer eligible based on patient's age to complete this topic Varicella Vaccines Aged Out No longer eligible based on patient's age to complete this topic Insurance MEDICARE [facility] MEDICARE [facility] Care Teams Insulation Cutter Relationship Specialty Start Date End Date Cecile Briones MD [address] [facility] [place] [address] PCP - General Internal Medicine 12/17/24
[2025-03-09 08:49] LABS: MANUAL DIFF FLAG NO
[2025-03-09 10:40] LABS: Hematocrit 41.2 % (37.0-47.0); Hemoglobin 13.4 g/dl (12.0-16.0); Imm Gran Abs Auto 0.03 X10*3/uL (0.00-0.03); Imm Gran Pct Auto 0.4 % (0.0-0.4); Lymphocytes Absolute Auto 2.2 X10*3/uL (1.2-4.9); Mean Corpuscular HGB Conc 32.5 g/dl (31.0-35.0); Mean Corpuscular Hemoglobin 27.1 pg (27.0-33.0); Mean Corpuscular Volume 83.4 fL (80.0-98.0); NRBC Abs Auto 0.000 X10*3/uL (0.0-0.012); NRBC Pct Auto 0.0 /100WBC (0.0-0.2); Platelet Count 391 X10*3/uL (160-400); Red Blood Count 4.94 X10*6/uL (4.20-5.50); White Blood Count 8.3 X10*3/uL (4.8-10.8)
[2025-03-09 11:44] LABS: Alanine Aminotransferase 35 U/L (0-31); Albumin Level 4.3 g/dL (3.5-5.0); Alkaline Phosphatase 76 U/L (39-117); Anion Gap 13 (12-20); Aspartate Amino Transferase 28 U/L (5-31); Blood Urea Nitrogen 16 mg/dL (9-16); Calcium 10.1 mg/dL (8.4-10.2); Carbon Dioxide 27 mmol/L (22-29); Chloride 107 mmol/L (96-108); Estimated Glomerular Filt Rate > 60; Potassium 4.4 mmol/L (3.3-5.1); Sodium 143 mmol/L (135-145); Total Protein 7.1 g/dL (6.5-8.0)
== END 2025-03-09 08:08 | disposition home or self-care (01) ==
LOC: HO.LAB 08:07
PROVIDERS: PCP Internal Medicine; Referring Provider Internal Medicine; Visit Provider Internal Medicine
DX: K50.812 Crohn's disease of both small and large intestine with intestinal obstruction (principal)
CPT/HCPCS: 36415; 80053; 85025; 86140

== ENCOUNTER 2025-03-11 16:34 | Outpatient (REF) | payer BC, SELFPAY ==
--- OUTSIDE RECORDS SUMMARY | 2025-03-11 18:03 | XMS_ITS | Encounter Summary ---
Author Organization [employer] [facility] Address [address] [place] [address] [address] [place] [address] Care Team Providers Care Recreation Superintendent Name Role Phone Unavailable Primary Care Provider Unavailabl e Encounter Details Date Type Department Care Team (Latest Contact Info) Description 09/23/[address] [facility] CONVERSIONS Dental, Provider, DDS Social History Tobacco [...]
--- OUTSIDE RECORDS SUMMARY | 2025-03-11 18:03 | XMS_ITS | Clinical Summary ---
Author Organization [facility] Address [address] [place] [address] Care Team Providers Care Concrete Pipe Plant Supervisor Name Role Phone Cecile Briones MD Primary Care Provider [phone] Allergies Active Allergy Reactions Criticality Noted Date Comments Latex Rash 01/15/2025 Other Reaction(s): adhesive tape Medications Stelara 90 mg/mL syringe 01/08/2025 Active Encounters Date Type Department Care Team Description 02/08/2025 1:00 PM EDT Office Visit [facility] [address] [address] Susan Swan MD Crohn's disease of both small and large intestine with intestinal obstruction (CMS/[facility] V24, CMS/HCC V28) (Primary Dx) 01/15/2025 3:30 PM EDT Office Visit [facility] [address] [facility] [address] [place] [address] Renetta Earl DO Crohn's disease of colon with intestinal obstruction (CMS/[facility] V24, CMS/[facility] V28) (Primary Dx) from Last 3 Months [...] care for your loved ones. For example, salesperson children's shoes or elderly care for an older adult? [...] age to complete this topic Insurance MEDICARE [facility] MEDICARE [facility] Care Teams Concrete Pipe Plant Supervisor Relationship Specialty Start Date End Date Cecile Briones MD [address] [facility] [place] [address] PCP - General Internal Medicine 12/17/24
--- OUTSIDE RECORDS SUMMARY | 2025-03-11 18:03 | XMS_ITS | Encounter Summary ---
Author Organization [employer] [facility] Address [address] [facility] 7 [place] [address] Care Team Providers Care Drop Count Associate Name Role Phone Unavailable Primary Care Provider Unavailabl e Encounter Details Date Type Department Care Team (Latest Contact Info) Description 11/07/2018 Abstract [facility] CONVERSIONS Dental, Provider, DDS Social [...]
--- OUTSIDE RECORDS SUMMARY | 2025-03-11 18:03 | XMS_ITS | Clinical Summary ---
Author Organization [employer] Address [address] [place] [address] 7t [place] [address] Care Team Providers Care Retail Parts Pro Name Role Phone Unavailable Primary Care Provider [...]
== END 2025-03-11 16:35 | disposition home or self-care (01) ==
LOC: HO.LAB 16:34
PROVIDERS: PCP Internal Medicine; Visit Provider Internal Medicine
DX: K50.10 Crohn's disease of large intestine without complications (principal)
CPT/HCPCS: 36415; 80299; 82542

== ENCOUNTER 2025-03-12 07:24 | Outpatient (REF) | payer BC, SELFPAY ==
--- OUTSIDE RECORDS SUMMARY | 2025-03-12 07:26 | XMS_ITS | Encounter Summary ---
Author Organization [facility] Address [address] [place] [address] 7 [place] [address] Care Team Providers Care Entry Tech Name Role Phone Unavailable Primary Care Provider Unavailabl e Encounter Details Date Type Department Care Team (Latest Contact Info) Description 09/23/2020 Abstract [facility] CONVERSIONS Dental, Provider, DDS Social History [...]
--- OUTSIDE RECORDS SUMMARY | 2025-03-12 07:26 | XMS_ITS | Clinical Summary ---
Author Organization [facility] Address [address] [place] [address] Care Team Providers Care Curtain Drier Name Role Phone Cecile Briones MD Primary Care Provider [phone] Allergies Active Allergy Reactions Criticality Noted Date Comments Latex Rash 01/15/2025 Other Reaction(s): adhesive tape Medications Stelara 90 mg/mL syringe 01/08/2025 Active Encounters Date Type Department Care Team Description 02/08/2025 1:00 PM EDT Office Visit [facility] [address] [address] Susan Swan MD Crohn's disease of both small and large intestine with intestinal obstruction (CMS/[facility] V24, CMS/HCC V28) (Primary Dx) 01/15/2025 3:30 PM EDT Office Visit [facility] [address] [facility] [address] [place] [address] Renetta Earl DO Crohn's disease of colon with intestinal obstruction (CMS/[facility] V24, CMS/[facility] V28) (Primary Dx) from Last 3 [...] care for your loved ones. For example, child psychiatrist or elderly care for an older adult? [...] age to complete this topic Insurance MEDICARE [facility] MEDICARE [facility] Care Teams Curtain Drier Relationship Specialty Start Date End Date Cecile Briones MD [address] [facility] [place] [address] PCP - General Internal Medicine 12/17/24
--- OUTSIDE RECORDS SUMMARY | 2025-03-12 07:26 | XMS_ITS | Encounter Summary ---
Author Organization [employer] [facility] Address [address] [facility] 7 [place] [address] Care Team Providers Care Canopy Inspector Name Role Phone Unavailable Primary Care Provider Unavailabl e Encounter Details Date Type Department Care Team (Latest Contact Info) Description 11/07/2018 Abstract [facility] CONVERSIONS Dental, Provider, DDS Social History Tobacco [...]
--- OUTSIDE RECORDS SUMMARY | 2025-03-12 07:26 | XMS_ITS | Clinical Summary ---
Author Organization [employer] Address [address] [place] [address] 7t [place] [address] Care Team Providers Care Meeting/Event Planner Name Role Phone Unavailable Primary Care Provider [...]
[2025-03-17 17:24] LABS: Calprotectin, Fecal 1450 mcg/g
== END 2025-03-12 07:25 | disposition home or self-care (01) ==
LOC: HO.LNP 07:24
PROVIDERS: Visit Provider Internal Medicine
DX: K50.812 Crohn's disease of both small and large intestine with intestinal obstruction (principal)
CPT/HCPCS: 83993

== ENCOUNTER 2025-03-13 09:04 | Outpatient (REF) | payer BC, SELFPAY ==
--- NOTE | ~2025-03-13 | MR_ITS ---
EXAMINATION: MR ABDOMEN WITHOUT THEN WITH IV CONTRAST HISTORY: ENTEROGRAPHY CHRONS DISEASE OF SM LG BOWEL W/ OBSTRUCTION COMPARISON: Previous CT of the abdomen and pelvis most recent August [address] enterography exam October 2023 TECHNIQUE: Axial in and out of phase T1-weighted gradient echo, axial diffusion weighted, and axial and coronal HASTE T2 with fat saturation images were obtained through the abdomen. Subsequently, fat suppressed axial and coronal T1-weighted images were obtained after the intravenous administration of 10 mL Gadavist and 3 bottles of oral Breeza contrast. FINDINGS: Liver: Slightly enlarged fatty liver. There is no enhancing liver mass. The hepatic and portal veins are patent. There is no intrahepatic biliary dilatation. Gallbladder/biliary tree: No gallstones are identified. The common bile duct is normal in caliber. No intraluminal filling defects are identified to suggest choledocholithiasis. Spleen: The spleen is unremarkable. Pancreas: The pancreas is unremarkable. There is no enhancing pancreatic mass. The pancreatic duct is normal in caliber. Adrenals: The adrenal glands are unremarkable. Kidneys: Focal cortical thinning or scarring of the lateral lower pole of the right kidney. Mild fullness of the right renal pelvis. No hydronephrosis. Normal left kidney. Lymph nodes: No enlarged lymph nodes. There is shotty small bowel mesenteric lymphadenopathy and fat stranding similar to previous exams. Fluid: There is no ascites. Visualized bowel: Very long segment of abnormal distal small bowel extending to the terminal ileum with wall thickening, wall edema and pseudosacculations.. This demonstrates increased diffuse increased mucosal enhancement. This demonstrates some areas of transmural enhancement. Appearance is suggestive of active inflammatory bowel disease. There is an area of focal dilatation small bowel loop measuring up to 4 cm similar to previous exam questionable for tethering or mild stricture.. There is also mild dilatation of the more proximal small bowel is proximal to the inflamed segment. There are reactive changes in the small bowel mesentery with increased vascularity with comb appearance and shotty small bowel mesentery lymphadenopathy. Findings are similar to previous CT enterography October 2023. The large bowel is normal. The appendix is normal. The stomach is normal. Visualized rectum and anus are normal. Uterus, adnexa and bladder are unremarkable. Visualized bones: The visualized bones demonstrate normal marrow signal intensity. Small umbilical hernia containing fat. MR/MR abdomen wo/w con IMPRESSION: Long segment of active inflammatory bowel disease of the distal small bowel extending to the terminal ileum. The appearance and distribution similar to previous CT enterography exam October 2023. Normal large bowel. No evidence of obstruction. Enlarged fatty liver. Electronically signed by: Nona Benavides MD 03/13/2025 01:48 PM [facility]
--- NOTE | ~2025-03-13 | MR_ITS ---
EXAMINATION: MR PELVIS WITHOUT AND WITH CONTRAST See combined MR enterography abdomen pelvis report of the same day. Electronically signed by: Nona Benavides MD 03/13/2025 01:49 PM [facility]
--- OUTSIDE RECORDS SUMMARY | 2025-03-13 09:50 | XMS_ITS | Clinical Summary ---
Author Organization [employer] Address [address] [place] [address] 7t [place] [address] Care Team Providers Care Tray Worker Name Role Phone Unavailable Primary Care Provider [...]
--- OUTSIDE RECORDS SUMMARY | 2025-03-13 09:50 | XMS_ITS | Clinical Summary ---
Author Organization [facility] Address [address] [place] [address] Care Team Providers Care Automatic Dispenser Mechanic Name Role Phone Cecile Briones MD Primary Care Provider [phone] Allergies Active Allergy Reactions Criticality Noted Date Comments Latex Rash 01/15/2025 Other Reaction(s): adhesive tape Medications Stelara 90 mg/mL syringe 01/08/2025 Active Encounters Date Type Department Care Team Description 02/08/2025 1:00 PM EDT Office Visit [facility] [address] [address] Susan Swan MD Crohn's disease of both small and large intestine with intestinal obstruction (CMS/[facility] V24, CMS/HCC V28) (Primary Dx) 01/15/2025 3:30 PM EDT Office Visit [facility] [address] [facility] [address] [place] [address] Renetta Earl DO Crohn's disease of colon with intestinal obstruction (CMS/[facility] V24, CMS/[facility] V28) (Primary Dx) from Last 3 Months [...] care for your loved ones. For example, children's service worker or elderly care for an older adult? [...] 02/08/2025 1:02 PM EDT Plan of Treatment Upcoming Encounters Date Type Department Care Team (Late st Contact Info) Description 03/15/2025 4:00 PM EST Office Visit [facility] [place] [address] [place] [address] Susan Swan MD [address] [facility] [address] [place] [phone] Health Maintenance Due Date Last Done Comments Breast Cancer Screening 1971 Colorectal Cancer Screening: Colonoscopy 1971 Cervical Cancer Screening: Pap Smear 09/18/1992 Pneumococcal Vaccine: 50+ Years (2 of 2 - PCV) 09/18/2021 03/12/2016, 11/14/2014 Depression Screening 05/02/2024 DTaP,Tdap,and Td Vaccines (2 - Td or Tdap) 11/14/2024 11/14/2014 HIV Screening 12/10/2024 Hepatitis C Screening 12/10/2024 COVID-19 Vaccine ( season) 2024 05/03/2021, 04/06/2021 Influenza Vaccine (#1) 2024 , 01/28/2020, 01/22/2018, Additional history exists Social Influencers of Health Screening 01/08/2026 01/08/2025 RSV Immunization Adult Patients (1 - 1-dose 75+ series) 09/18/2046 Hepatitis A Vaccines Aged Out 10/17/2023, 09/14/19 No longer eligible based on patient's age [...] age to complete this topic Insurance MEDICARE [facility] MEDICARE [facility] Care Teams Automatic Dispenser Mechanic Relationship Specialty Start Date End Date Cecile Briones MD [address] [place] [address] PCP - General Internal Medicine 12/17/24
--- OUTSIDE RECORDS SUMMARY | 2025-03-13 09:50 | XMS_ITS | Encounter Summary ---
Author Organization [employer] [facility] Address [address] [place] [address] 7 [place] [address] Care Team Providers Care Wheelchair Driver Name Role Phone Unavailable Primary Care Provider Unavailabl e Encounter Details Date Type Department Care Team (Latest Contact Info) Description 09/23/2020 Abstract [facility] CONVERSIONS Dental, Provider, DDS Social [...]
--- OUTSIDE RECORDS SUMMARY | 2025-03-13 09:50 | XMS_ITS | Encounter Summary ---
Author Organization [employer] [facility] Address [address] [facility] 7 [place] [address] Care Team Providers Care Director Life Name Role Phone Unavailable Primary Care Provider Unavailabl e Encounter Details Date Type Department Care Team (Latest Contact Info) Description 11/07/2018 Abstract [facility] CONVERSIONS Dental, Provider, DDS Social History Tobacco [...]
== END 2025-03-13 09:05 | disposition home or self-care (01) ==
LOC: HO.MRI 09:04
PROVIDERS: PCP Internal Medicine; Visit Provider Internal Medicine
DX: K50.812 Crohn's disease of both small and large intestine with intestinal obstruction (principal)
CPT/HCPCS: 72197; 74183

== ENCOUNTER → 2025-03-13 10:52 | Outpatient (BNV) | payer BC, SELFPAY | PROVIDERS: PCP Internal Medicine; Visit Provider Radiology Diagnostic Radiology | DX: K50.812 Crohn's disease of both small and large intestine with intestinal obstruction (principal) | CPT/HCPCS: 72197; 74183 ==

== ENCOUNTER 2025-03-20 14:18 | Outpatient (REF) | payer BC, SELFPAY ==
--- OUTSIDE RECORDS SUMMARY | 2025-03-21 02:46 | XMS_ITS | Encounter Summary ---
Author Organization [employer] [facility] Address [address] [place] [address] 7 [place] [address] Care Team Providers Care Cloth Designer Name Role Phone Unavailable Primary Care Provider Unavailabl e Encounter Details Date Type Department Care Team (Latest Contact Info) Description 09/23/[address] [facility] CONVERSIONS Dental, Provider, DDS Social History [...]
--- OUTSIDE RECORDS SUMMARY | 2025-03-21 02:46 | XMS_ITS | Encounter Summary ---
Author Organization [employer] [facility] Address [address] [facility] 7 [place] [address] Care Team Providers Care Stunt Performer Name Role Phone Unavailable Primary Care Provider Unavailabl e Encounter Details Date Type Department Care Team (Latest Contact Info) Description 11/07/[address] [facility] CONVERSIONS Dental, Provider, DDS Social History [...]
--- OUTSIDE RECORDS SUMMARY | 2025-03-21 02:46 | XMS_ITS | Clinical Summary ---
Author Organization [employer] Address [address] [place] [address] [address] [place] [address] Care Team Providers Care Iuss Analyst Name Role Phone Unavailable Primary Care [...] of 2) 09/18/2021 COVID-19 Vaccine ( - 2024-2 6 season) 2024 Influenza Vaccine (#1) 2024 RSV [...]
[2025-03-21 08:58] LABS: HBS Num1 0.49 mIU/mL (0-7.99); HBc Num1 0.08 S/CO (0.00-0.79); HBsAGNum1 0.40 S/CO (0.00-0.99); Hepatitis B Surface Antigen Negative (Negative); ~Hepatitis B Surface Antibody NONREACTIVE (Nonreactive)
[2025-03-23 06:04] LABS: Quantiferon TB Gold Plus 1 NEGATIVE (NEGATIVE); TB Test (QFT) Mitogen -Nil 9.72 IU/mL; TB Test (QFT) Nil 0.06 IU/mL; TB Test (QFT) Plus TB1 -Nil <0.00 IU/mL; TB Test (QFT) Plus TB2 -Nil <0.00 IU/mL
== END 2025-03-20 14:19 | disposition home or self-care (01) ==
LOC: HO.LAB 14:18
PROVIDERS: PCP Internal Medicine; Visit Provider Internal Medicine
DX: Z11.1 Encounter for screening for respiratory tuberculosis (principal); K50.812 Crohn's disease of both small and large intestine with intestinal obstruction
CPT/HCPCS: 86480; 86704; 86706; 87340

== ENCOUNTER 2025-03-27 10:44 | Outpatient (REF) | payer BC, SELFPAY ==
[2025-03-27 12:26] LABS: CDiff Gene PCR NEGATIVE (Negative)
== END 2025-03-27 10:45 | disposition home or self-care (01) ==
LOC: HO.LNP 10:44
PROVIDERS: Visit Provider Internal Medicine
DX: K50.812 Crohn's disease of both small and large intestine with intestinal obstruction (principal)
CPT/HCPCS: 87493